=== PATIENT | male | born 1965 | race Caucasian/White ===

== ENCOUNTER 2020-10-04 14:56 | Emergency (ER) | payer OTHER ==
[2020-10-04 15:04] VITALS: TEMP 97.5
--- NOTE | 2020-10-04 15:52 | ED ---
General Adult HPI - General Chief complaint: Nausea/Vomiting/Diarrhea Stated complaint: Diarrhea,Headache Time Seen by Provider: 10/04/20 15:46 Source: patient Limitations: physical limitation - History of Present Illness Initial comments: Patient presents to the ED for evaluation. Patient states that he lives with his caregiver, and he states that his caregiver wanted him to be evaluated for possible Covid infection. Patient states that his only symptom is that he had one loose bowel movement, and he denies having any other symptoms or complaints. Patient states that he recently suffered from a stroke, and he states that he has right hemiparesis. Patient denies having any pain, fever or chills, headache, chest pain, dyspnea, cough or cold symptoms, palpitations, dizziness, abdominal pain, nausea or vomiting, bloody or melanotic stool, dysuria or urinary symptoms, or any other symptoms or complaints. - Related Data Home Medications Medication Instructions Recorded Confirmed Amiodarone [Cordarone] 200 mg PO BID 10/04/20 10/04/20 Aspirin EC [Ecotrin Low Dose] 81 mg PO DAILY 10/04/20 10/04/20 Atorvastatin [Lipitor] 80 mg PO HS 10/04/20 10/04/20 Loratadine 10 mg PO DAILY 10/04/20 10/04/20 Metoprolol Tartrate [Lopressor] 25 mg PO BID 10/04/20 10/04/20 Pantoprazole Sodium 40 mg PO DAILY 10/04/20 10/04/20 QUEtiapine [SEROquel] 50 mg PO HS 10/04/20 10/04/20 Thiamine HCl [Vitamin B-1] 100 mg PO DAILY 10/04/20 10/04/20 Warfarin Sodium 5 mg PO HS 10/04/20 10/04/20 lisinopriL [Zestril] 2.5 mg PO DAILY 10/04/20 10/04/20 Allergies Allergy/AdvReac Type Severity Reaction Status Date / Time No Known Allergies Allergy Verified 10/04/20 17:11 Review of Systems ROS Statement: Those systems with pertinent positive or pertinent negative responses have been documented in the HPI. ROS Other: All systems not noted in ROS Statement are negative. Past Medical History Past Medical History: Heart Failure, Hypertension History of Any Multi-Drug Resistant Organisms: None Reported Additional Past Surgical History / Comment(s): Cardiac stent Past Psychological History: No Psychological Hx Reported Smoking Status: Current some day smoker Past Alcohol Use History: None Reported Past Drug Use History: Marijuana General Exam Limitations: physical limitation General appearance: alert, in no apparent distress Head exam: Present: atraumatic, normocephalic Eye exam: Present: normal appearance, EOMI ENT exam: Present: mucous membranes moist Neck exam: Present: other (Trachea is in midline) Respiratory exam: Present: normal lung sounds bilaterally. Absent: respiratory distress, wheezes, rales, rhonchi, stridor Cardiovascular Exam: Present: regular rate, normal rhythm, normal heart sounds, other (Normal radial pulses bilaterally) GI/Abdominal exam: Present: soft. Absent: distended, tenderness, guarding Extremities exam: Absent: tenderness, pedal edema Neurological exam: Present: alert, oriented X3, other (Right hemiparesis, stuttered speech) Psychiatric exam: Present: normal affect, normal mood Skin exam: Present: warm, dry, intact, normal color Course Vital Signs 10/04/20 10/04/20 10/04/20 15:01 16:04 18:00 Temperature 97.5 F L Pulse Rate 69 64 Respiratory 22 18 18 Rate Blood Pressure 126/77 O2 Sat by Pulse 92 L Oximetry 10/04/20 19:00 Temperature Pulse Rate 62 Respiratory 18 Rate Blood Pressure 102/66 O2 Sat by Pulse 96 Oximetry - Reevaluation(s) Reevaluation #1: 10/04/20 17:34 Patient is aware of his test results and positive Covid test. Patient meets the inclusion criteria for monoclonal antibody infusion. I have recommended it to him, and he agrees with starting the infusion in the ED at this time. 10/04/20 19:22 Patient denies development of any new symptoms while in the ED. Patient remains alert and breathing comfortably with a normal room air oxygen saturation. Patient states that he feels fine after receiving his monoclonal antibody infusion in the ED. Patient was counseled about Covid infection and diarrhea. Patient was clearly explained return and follow-up instructions, and he was instructed to have a low threshold for return to the ED should his symptoms worsen. Patient was also instructed to follow up closely with his primary care provider. Patient feels comfortable with this plan. Medical Decision Making - Medical Decision Making I suspect that the patient's symptoms and study findings are likely secondary to Covid infection. Patient's chest x-ray shows mild right posterior infiltrate, but patient denies feeling dyspneic, and he has a normal room air oxygen saturation. Patient was treated with a monoclonal antibody infusion in the ED. I do not feel that the patient meets criteria for hospital admission at this time. Patient feels comfortable going home at this time. Patient was instructed to return to the ED should he develop new or worsening symptoms. Patient was also instructed to follow up closely with his primary care provider. Patient feels comfortable with this plan. - Lab Data Result diagrams: 10/04/20 16:24 10/04/20 16:24 Lab Results 10/04/20 10/04/20 10/04/20 Range/Units 16:24 16:24 16:24 WBC 8.8 (3.8-10.6) k/uL RBC 4.84 (4.30-5.90) m/uL Hgb 14.3 (13.0-17.5) gm/dL Hct 40.8 (39.0-53.0) % MCV 84.3 (80.0-100.0) fL MCH 29.4 (25.0-35.0) pg MCHC 34.9 (31.0-37.0) g/dL RDW 14.1 (11.5-15.5) % Plt Count 201 (150-450) k/uL MPV 7.2 Neutrophils % 83 % Lymphocytes % 9 % Monocytes % 6 % Eosinophils % 1 % Basophils % 1 % Neutrophils # 7.3 (1.3-7.7) k/uL Lymphocytes # 0.8 L (1.0-4.8) k/uL Monocytes # 0.5 (0-1.0) k/uL Eosinophils # 0.1 (0-0.7) k/uL Basophils # 0.0 (0-0.2) k/uL Sodium 129 L (137-145) mmol/L Potassium 3.6 (3.5-5.1) mmol/L Chloride 101 (98-107) mmol/L Carbon Dioxide 22 (22-30) mmol/L Anion Gap 6 mmol/L BUN 19 (9-20) mg/dL Creatinine 0.69 (0.66-1.25) mg/dL Est GFR (CKD-EPI)AfAm >90 (>60 ml/min/1.73 sqM) Est GFR (CKD-EPI)NonAf >90 (>60 ml/min/1.73 sqM) Glucose 100 H (74-99) mg/dL Calcium 8.2 L (8.4-10.2) mg/dL Total Bilirubin 0.5 (0.2-1.3) mg/dL AST 39 (17-59) U/L ALT 10 (4-49) U/L Alkaline Phosphatase 49 (38-126) U/L Total Protein 6.4 (6.3-8.2) g/dL Albumin 3.3 L (3.5-5.0) g/dL Lipase 71 (23-300) U/L Coronavirus (PCR) Detected A (Not Detectd) - Radiology Data Radiology results: report reviewed (Chest x-ray: Right side posterior pleural thickening and infiltrate, no heart failure) Disposition Clinical Impression: Diarrhea, COVID-19 Disposition: HOME SELF-CARE Condition: Stable Instructions (If sedation given, give patient instructions): Coronavirus Disease 2019 (COVID-19), Acute Diarrhea (ED) Additional Instructions: Return to the ER immediately should you develop shortness of breath/difficulty breathing, chest pain, a high fever, feeling dizzy or faint, or new or worsening symptoms. Follow up closely with your primary care provider. Is patient prescribed a controlled substance at d/c from ED?: No Referrals: Rosmery Petit DO [Primary Care Provider] - 1-2 days Time of Disposition: 19:25
[2020-10-04 16:24] VITALS: RESP 18
[2020-10-04 16:32] LABS: Basophils % (A) 1 %; Eosinophils # (A) 0.1 k/uL (0-0.7); Eosinophils % (A) 1 %; HCT 40.8 % (39.0-53.0); HGB 14.3 gm/dL (13.0-17.5); Lymphocytes # (A) 0.8 k/uL (1.0-4.8); Lymphocytes % (A) 9 %; MCH 29.4 pg (25.0-35.0); MCHC 34.9 g/dL (31.0-37.0); MCV 84.3 fL (80.0-100.0); Mean Platelet Volume 7.2; Monocytes # (A) 0.5 k/uL (0-1.0); Monocytes % (A) 6 %; Neutrophils # (A) 7.3 k/uL (1.3-7.7); Neutrophils % (A) 83 %; Platelet Count 201 k/uL (150-450); RBC 4.84 m/uL (4.30-5.90); RDW 14.1 % (11.5-15.5); WBC 8.8 k/uL (3.8-10.6)
[2020-10-04 16:41] LABS: ALT 10 U/L (4-49); AST 39 U/L (17-59); African American GFR (CKD) >90 (>60 ml/min/1.73 sqM); Albumin 3.3 g/dL (3.5-5.0); Alkaline Phosphatase 49 U/L (38-126); Anion Gap 6 mmol/L; Blood Urea Nitrogen 19 mg/dL (9-20); Calcium 8.2 mg/dL (8.4-10.2); Carbon Dioxide 22 mmol/L (22-30); Chloride 101 mmol/L (98-107); Glucose 100 mg/dL (74-99); Lipase 71 U/L (23-300); Non-African American GFR(CKD) >90 (>60 ml/min/1.73 sqM); Potassium 3.6 mmol/L (3.5-5.1); Sodium 129 mmol/L (137-145); Total Bilirubin 0.5 mg/dL (0.2-1.3); Total Protein 6.4 g/dL (6.3-8.2)
--- NOTE | 2020-10-04 16:52 | XR ---
EXAMINATION TYPE: XR chest 2V DATE OF EXAM: 10/04/2020 COMPARISON: NONE HISTORY: Nausea and vomiting TECHNIQUE: 2 views FINDINGS: Heart is enlarged. There is increased density over the right hemithorax consistent with inf iltrate and pleural thickening posteriorly. The left lung is clear. There is no heart failure. IMPRESSION: Right side posterior pleural thickening and infiltrate. No heart failure.
[2020-10-04] MEDS ORDERED: BAMLANIVIMAB (EUA) 700 MG, ETESEVIMAB (EUA) 1,400 MG in SODIUM CHLORIDE 0.9% 50 ML IVPB ONE (18:00)
[2020-10-04 19:10] VITALS: BP 102/66; PULSE 62
== END 2020-10-04 19:40 | disposition home or self-care (01) ==
LOC: EC 14:56
DX: U07.1 COVID-19 (principal); I11.0 Hypertensive heart disease with heart failure; I50.9 Heart failure, unspecified; F17.200 Nicotine dependence, unspecified, uncomplicated; Z86.73 Personal history of transient ischemic attack (TIA), and cerebral infarction without residual deficits; Z79.01 Long term (current) use of anticoagulants; Z79.82 Long term (current) use of aspirin; Z95.5 Presence of coronary angioplasty implant and graft
CPT/HCPCS: 36415; 80053; 83690; 85025; 87635; 71046; 99284; 96365; Q0245

== ENCOUNTER → 2020-12-26 | Outpatient (CLI) | payer OTHER ==
[2020-12-27 00:07] LABS: INR 1.63 (0.90-1.11); Prothrombin Time 17.2 sec (9.9-11.9)
[2020-12-27 00:57] LABS: African American GFR (CKD) 115.7 (60.0-200.0); Albumin/Globulin Ratio 1.54 (1.60-3.17); Anion Gap 8.6 mmol/L (4.00-12.00); BUN/Creat Ratio 18.75 Ratio (12.00-20.00); Calcium 8.9 mg/dL (8.7-10.3); Carbon Dioxide 24.4 mmol/L (21.6-31.8); Globulin 2.6 g/dL (1.6-3.3); Non-African American GFR(CKD) 99.9 (60.0-200.0); Potassium 4.4 mmol/L (3.5-5.5); Total Bilirubin 0.4 mg/dL (0.2-1.2); Total Protein 6.6 g/dL (6.2-8.2)
[2020-12-27 01:04] LABS: PSA Annual Screen 0.6 ng/mL (0.0-4.0)
== END | disposition home or self-care (01) ==
LOC: LABWHC1 13:55
PROVIDERS: ATTEND Internal Medicine
DX: Z12.5 Encounter for screening for malignant neoplasm of prostate (principal); N40.0 Benign prostatic hyperplasia without lower urinary tract symptoms; I10 Essential (primary) hypertension
CPT/HCPCS: 80053; 85610; 36415; G0103

== ENCOUNTER 2022-10-18 08:10 | Inpatient (IN) | payer OTHER ==
[2022-10-18] MEDS ORDERED: IPRATROPIUM-ALBUTEROL 3 ML NEB INHALATION STA (08:25)
[2022-10-18] MEDS ORDERED: DILTIAZEM DRIP BOLUS FROM BAG 1 MG SOLN IV ONE (08:31)
[2022-10-18] MEDS ORDERED: ASPIRIN 81 MG PO STA (08:31)
[2022-10-18] MEDS ORDERED: ACETAMINOPHEN TAB 325 MG TAB PO STA (08:31)
[2022-10-18] MEDS ORDERED: HEPARIN SODIUM 1,000 UN/ML (10ML VL) IV ONE (08:32)
[2022-10-18] MEDS ORDERED: DILTIAZEM 125 MG in SODIUM CHLORIDE 0.9% 100 ML IV SCH (08:45)
[2022-10-18 08:46] LABS: Basophils % (A) 0 %; Eosinophils # (A) 0.2 k/uL (0-0.7); Eosinophils % (A) 2 %; HCT 44.1 % (39.0-53.0); HGB 14.6 gm/dL (13.0-17.5); Lymphocytes # (A) 1.9 k/uL (1.0-4.8); Lymphocytes % (A) 16 %; MCH 29.5 pg (25.0-35.0); MCHC 33.2 g/dL (31.0-37.0); MCV 88.9 fL (80.0-100.0); Mean Platelet Volume 7.6; Monocytes # (A) 0.5 k/uL (0-1.0); Monocytes % (A) 5 %; Neutrophils # (A) 8.6 k/uL (1.3-7.7); Neutrophils % (A) 75 %; Platelet Count 360 k/uL (150-450); RBC 4.96 m/uL (4.30-5.90); RDW 14.3 % (11.5-15.5); WBC 11.4 k/uL (3.8-10.6)
--- NOTE | 2022-10-18 08:54 | ED ---
General Adult HPI - General Chief complaint: Shortness of Breath Stated complaint: sob Time Seen by Provider: 10/18/22 08:19 Source: patient, RN notes reviewed Mode of arrival: ambulatory Limitations: no limitations - History of Present Illness Initial comments: 57-year-old male presents emergency Department chief complaint of increasing shortness of breath. Patient states that over the last 1 week he noticed that he is having shortness of breath at rest and worse with exertion. Patient does have a history of atrial fibrillation, prior cardiac disease including one stent and CVA. Patient states she supposed be on multiple medications has not been taking any of his medication. Patient states he did have increasing cough, congestion, leg swelling. Patient states he used to be on Coumadin after his prior CVA. Patient denies any history of PE or DVT. Patient is a well chest tightness. - Related Data Home Medications Medication Instructions Recorded Confirmed No Known Home Medications 10/18/22 10/18/22 Allergies Allergy/AdvReac Type Severity Reaction Status Date / Time No Known Allergies Allergy Verified 10/18/22 08:55 Review of Systems ROS Statement: Those systems with pertinent positive or pertinent negative responses have been documented in the HPI. ROS Other: All systems not noted in ROS Statement are negative. Past Medical History Past Medical History: Chest Pain / Angina, Heart Failure, CVA/TIA, Hypertension History of Any Multi-Drug Resistant Organisms: None Reported Additional Past Surgical History / Comment(s): Cardiac stent Past Psychological History: No Psychological Hx Reported Smoking Status: Current every day smoker Past Alcohol Use History: None Reported Past Drug Use History: Marijuana General Exam Limitations: no limitations General appearance: alert, in distress Head exam: Present: atraumatic, normocephalic, normal inspection Eye exam: Present: normal appearance, PERRL, EOMI. Absent: scleral icterus, conjunctival injection, periorbital swelling ENT exam: Present: normal exam, normal oropharynx, mucous membranes moist Neck exam: Present: normal inspection, full ROM. Absent: tenderness, meningismus, lymphadenopathy Respiratory exam: Present: respiratory distress, wheezes. Absent: normal lung sounds bilaterally, rales, rhonchi, stridor Cardiovascular Exam: Present: tachycardia, irregular rhythm, normal heart sounds. Absent: normal rhythm, systolic murmur, diastolic murmur, rubs, gallop, clicks GI/Abdominal exam: Present: soft, normal bowel sounds. Absent: distended, tenderness, guarding, rebound, rigid Extremities exam: Present: pedal edema (Right greater than left leg swelling noted) Psychiatric exam: Present: normal affect, normal mood Course Vital Signs 10/18/22 10/18/22 10/18/22 08:13 09:00 09:14 Temperature 98.9 F Pulse Rate 152 H 154 H 130 H Respiratory 26 H Rate Blood Pressure 124/90 O2 Sat by Pulse 95 Oximetry EKG Findings - EKG Comments: EKG Findings:: EKG performed at 18:26 atrial flutter RVR, rate 154 QRS 106 QT/QTC 295/382 - EKG Results: EKG: interpreted by ADELAIDA Medical Decision Making - Medical Decision Making Was pt. sent in by a medical professional or institution (Dr. PA, CONSTRUCTION JOB COST ESTIMATOR, urgent care, hospital, or [facility]...) When possible be specific @ -[No] Did you speak to anyone other than the patient for history (EMS, parent, family, police, friend...)? What history was obtained from this source @ -[No] Did you review nursing and triage notes (agree or disagree)? Why? @ -[I reviewed and agree with nursing and triage notes] Were old charts reviewed (outside hosp., previous admission, EMS record, old EKG, old radiological studies, urgent care reports/EKG's, [facility] records)? Report findings @ -[No old charts were reviewed] Differential Diagnosis (chest pain, altered mental status, abdominal pain women, abdominal pain men, vaginal bleeding, weakness, fever, dyspnea, syncope, headache, dizziness, GI bleed, back pain, seizure, CVA, palpatations, mental health, musculoskeletal)? @ -[nDifferential Dyspnea: Coronary syndrome, arrhythmia, tamponade, asthma, COPD, pulmonary embolism, pneumonia, pneumothorax, pulmonary effusion, anaphylaxis, diabetic ketoacidosis, flailed chest, pulmonary contusion, diaphragmatic rupture, anemia, neuromuscular, this is not meant to be an all-inclusive list. able] EKG interpreted by me (3pts min.). @ -[As above] X-rays interpreted by me (1pt min.). @ -[Chest x-ray shows pulmonary edema] CT interpreted by me (1pt min.). @ -[CTA of the chest shows no evidence of PE, pulmonary edema] U/S interpreted by me (1pt. min.). @ -[None done] What testing was considered but not performed or refused? (CT, X-rays, U/S, labs)? Why? @ -[Echocardiogram will be completed inpatient] What meds were considered but not given or refused? Why? @ -[None] Did you discuss the management of the patient with other professionals (professionals i.e. DrRochelle, PA, CONSTRUCTION JOB COST ESTIMATOR, lab, RT, psych nurse, transition social worker, signal mechanic, teacher, attendance officer, continuous pillowcase cutter)? Give summary @ -[Discussed the case with Dr. Alonso cardiology who came and evaluated the patient regarding patient's troponin, history of coronary disease and recurrent atrial flutter with RVR. So discussed the case with [facility] for admission with further treatment and management of his underlying cardiac issues] Was smoking cessation discussed for >3mins.? @ -[I discussed smoking cessation for greater than 3 minutes. The risk of smoking were discussed with the patient including but not limited to risks of cancer, stroke, coronary artery disease and COPD. Also discussed with patient were multiple methods of quitting smoking. Lastly we discussed the financial cost of smoking.] Was critical care preformed (if so, how long)? @ -[35 mins] Were there social determinants of health that impacted care today? How? (Homelessness, low income, unemployed, alcoholism, drug addiction, transportation, low edu. Level, literacy, decrease access to med. care, usp, rehab)? @ -[No] Was there de-escalation of care discussed even if they declined (Discuss DNR or withdrawal of care, Hospice)? DNR status @ -[No] What co-morbidities impacted this encounter? (DM, HTN, Smoking, COPD, CAD, Cancer, CVA, ARF, Chemo, Hep., AIDS, mental health diagnosis, sleep apnea, morbid obesity)? @ -[CAD, CVA] Was patient admitted / discharged? Hospital course, mention meds given and route, prescriptions, significant lab abnormalities, going to OR and other pertinent info. @ -[Admitted patient is found to be in atrial flutter RVR patient was initially started on Cardizem, heparin. Patient is significantly complaint to give make chest x-ray shows pulmonary edema patient was given Lasix patient swelling was elevated at 3.195 did contact cardiology came and evaluated the patient. Patient will have echocardiogram, further monitoring patient will be kept on heparin] Undiagnosed new problem with uncertain prognosis? @ -[No] Drug Therapy requiring intensive monitoring for toxicity (Heparin, Nitro, Insulin, Cardizem)? @ -[Heparin, Cardizem] Were any procedures done? @ -[No] Diagnosis/symptom? @ -[NSTEMI] Acute, or Chronic, or Acute on Chronic? @ cute] Uncomplicated (without systemic symptoms) or Complicated (systemic symptoms)? @ -complicated Side effects of treatment? @ -[No] Exacerbation, Progression, or Severe Exacerbation? @ -[No] Poses a threat to life or bodily function? How? (Chest pain, USA, DC, pneumonia, PE, COPD, DKA, ARF, appy, cholecystitis, CVA, Diverticulitis, Homicidal, Suicidal, threat to staff... and all critical care pts) @ -[Yes patient has NSTEMi could lead to cardiac arrest - Lab Data Result diagrams: 10/18/22 08:35 10/18/22 08:35 Lab Results 10/18/22 10/18/22 10/18/22 Range/Units 08:35 08:35 08:35 WBC 11.4 H (3.8-10.6) k/uL RBC 4.96 (4.30-5.90) m/uL Hgb 14.6 (13.0-17.5) gm/dL Hct 44.1 (39.0-53.0) % MCV 88.9 (80.0-100.0) fL MCH 29.5 (25.0-35.0) pg MCHC 33.2 (31.0-37.0) g/dL RDW 14.3 (11.5-15.5) % Plt Count 360 (150-450) k/uL MPV 7.6 Neutrophils % 75 % Lymphocytes % 16 % Monocytes % 5 % Eosinophils % 2 % Basophils % 0 % Neutrophils # 8.6 H (1.3-7.7) k/uL Lymphocytes # 1.9 (1.0-4.8) k/uL Monocytes # 0.5 (0-1.0) k/uL Eosinophils # 0.2 (0-0.7) k/uL Basophils # 0.0 (0-0.2) k/uL PT 12.5 H (9.0-12.0) sec INR 1.2 H (<1.2) APTT 24.3 (22.0-30.0) sec D-Dimer 1.22 H (<0.60) mg/L FEU Sodium 139 (137-145) mmol/L Potassium 4.9 (3.5-5.1) mmol/L Chloride 109 H (98-107) mmol/L Carbon Dioxide 20 L (22-30) mmol/L Anion Gap 10 mmol/L BUN 23 H (9-20) mg/dL Creatinine 0.96 (0.66-1.25) mg/dL Est GFR (CKD-EPI)AfAm >90 (>60 ml/min/1.73 sqM) Est GFR (CKD-EPI)NonAf 87 (>60 ml/min/1.73 sqM) Glucose 128 H (74-99) mg/dL Plasma Lactic Acid Nik (0.7-2.0) mmol/L Calcium 9.2 (8.4-10.2) mg/dL Magnesium 2.0 (1.6-2.3) mg/dL Total Bilirubin 2.0 H (0.2-1.3) mg/dL AST 44 (17-59) U/L ALT 20 (4-49) U/L Alkaline Phosphatase 82 (38-126) U/L Troponin I (0.000-0.034) ng/mL NT-Pro-B Natriuret Pep pg/mL Total Protein 7.7 (6.3-8.2) g/dL Albumin 4.1 (3.5-5.0) g/dL Influenza Type A (PCR) (Not Detectd) Influenza Type B (PCR) (Not Detectd) RSV (PCR) (Not Detectd) SARS-CoV-2 (PCR) (Not Detectd) 10/18/22 10/18/22 10/18/22 Range/Units 08:35 08:35 08:35 WBC (3.8-10.6) k/uL RBC (4.30-5.90) m/uL Hgb (13.0-17.5) gm/dL Hct (39.0-53.0) % MCV (80.0-100.0) fL MCH (25.0-35.0) pg MCHC (31.0-37.0) g/dL RDW (11.5-15.5) % Plt Count (150-450) k/uL MPV Neutrophils % % Lymphocytes % % Monocytes % % Eosinophils % % Basophils % % Neutrophils # (1.3-7.7) k/uL Lymphocytes # (1.0-4.8) k/uL Monocytes # (0-1.0) k/uL Eosinophils # (0-0.7) k/uL Basophils # (0-0.2) k/uL PT (9.0-12.0) sec INR (<1.2) APTT (22.0-30.0) sec D-Dimer (<0.60) mg/L FEU Sodium (137-145) mmol/L Potassium (3.5-5.1) mmol/L Chloride (98-107) mmol/L Carbon Dioxide (22-30) mmol/L Anion Gap mmol/L BUN (9-20) mg/dL Creatinine (0.66-1.25) mg/dL Est GFR (CKD-EPI)AfAm (>60 ml/min/1.73 sqM) Est GFR (CKD-EPI)NonAf (>60 ml/min/1.73 sqM) Glucose (74-99) mg/dL Plasma Lactic Acid Nik 2.4 H* (0.7-2.0) mmol/L Calcium (8.4-10.2) mg/dL Magnesium (1.6-2.3) mg/dL Total Bilirubin (0.2-1.3) mg/dL AST (17-59) U/L ALT (4-49) U/L Alkaline Phosphatase (38-126) U/L Troponin I 3.190 H* (0.000-0.034) ng/mL NT-Pro-B Natriuret Pep 61850 pg/mL Total Protein (6.3-8.2) g/dL Albumin (3.5-5.0) g/dL Influenza Type A (PCR) (Not Detectd) Influenza Type B (PCR) (Not Detectd) RSV (PCR) (Not Detectd) SARS-CoV-2 (PCR) (Not Detectd) 10/18/22 Range/Units 08:35 WBC (3.8-10.6) k/uL RBC (4.30-5.90) m/uL Hgb (13.0-17.5) gm/dL Hct (39.0-53.0) % MCV (80.0-100.0) fL MCH (25.0-35.0) pg MCHC (31.0-37.0) g/dL RDW (11.5-15.5) % Plt Count (150-450) k/uL MPV Neutrophils % % Lymphocytes % % Monocytes % % Eosinophils % % Basophils % % Neutrophils # (1.3-7.7) k/uL Lymphocytes # (1.0-4.8) k/uL Monocytes # (0-1.0) k/uL Eosinophils # (0-0.7) k/uL Basophils # (0-0.2) k/uL PT (9.0-12.0) sec INR (<1.2) APTT (22.0-30.0) sec D-Dimer (<0.60) mg/L FEU Sodium (137-145) mmol/L Potassium (3.5-5.1) mmol/L Chloride (98-107) mmol/L Carbon Dioxide (22-30) mmol/L Anion Gap mmol/L BUN (9-20) mg/dL Creatinine (0.66-1.25) mg/dL Est GFR (CKD-EPI)AfAm (>60 ml/min/1.73 sqM) Est GFR (CKD-EPI)NonAf (>60 ml/min/1.73 sqM) Glucose (74-99) mg/dL Plasma Lactic Acid Nik (0.7-2.0) mmol/L Calcium (8.4-10.2) mg/dL Magnesium (1.6-2.3) mg/dL Total Bilirubin (0.2-1.3) mg/dL AST (17-59) U/L ALT (4-49) U/L Alkaline Phosphatase (38-126) U/L Troponin I (0.000-0.034) ng/mL NT-Pro-B Natriuret Pep pg/mL Total Protein (6.3-8.2) g/dL Albumin (3.5-5.0) g/dL Influenza Type A (PCR) Not Detected (Not Detectd) Influenza Type B (PCR) Not Detected (Not Detectd) RSV (PCR) Not Detected (Not Detectd) SARS-CoV-2 (PCR) Not Detected (Not Detectd) Critical Care Time Critical Care Time: Yes Total Critical Care Time: 35 Disposition Clinical Impression: NSTEMI (non-ST elevated myocardial infarction), Atrial flutter with rapid ventricular response, CHF (congestive heart failure) Disposition: ADMITTED IP TO THIS [facility] Condition: Poor Referrals: Юлия Shore MD [Primary Care Provider] - 1-2 days Time of Disposition: 10:34
[2022-10-18 08:56] LABS: ALT 20 U/L (4-49); AST 44 U/L (17-59); African American GFR (CKD) >90 (>60 ml/min/1.73 sqM); Albumin 4.1 g/dL (3.5-5.0); Alkaline Phosphatase 82 U/L (38-126); Anion Gap 10 mmol/L; Blood Urea Nitrogen 23 mg/dL (9-20); Calcium 9.2 mg/dL (8.4-10.2); Carbon Dioxide 20 mmol/L (22-30); Chloride 109 mmol/L (98-107); Glucose 128 mg/dL (74-99); Non-African American GFR(CKD) 87 (>60 ml/min/1.73 sqM); Potassium 4.9 mmol/L (3.5-5.1); Sodium 139 mmol/L (137-145); Total Protein 7.7 g/dL (6.3-8.2)
[2022-10-18] MEDS: HEPARIN SOD,PORK IN 0.45% NACL 25,000 UNIT in 0.45% NACL 1 250ML.BAG IV SCH (09:04)
[2022-10-18 09:17] LABS: INR 1.2 (<1.2); Partial Thromboplastin Time 24.3 sec (22.0-30.0); Prothrombin Time 12.5 sec (9.0-12.0)
[2022-10-18] MEDS ORDERED: LORazepam 2 MG/ML INJ IV STA (09:19)
--- NOTE | 2022-10-18 10:13 | CT ---
EXAMINATION TYPE: CT chest angio for PE CT DLP: 672.2 mGycm, Automated exposure control for dose reduction was used. DATE OF EXAM: 10/18/2022 9:57 AM COMPARISON: Chest radiograph same day. CLINICAL INDICATION:Male, 57 years old with history of sob; SOB TECHNIQUE/CONTRAST: CTA scan of the thorax is performed with IV Contrast, patient injected with 100 mL of Isovue 370, pul monary embolism protocol. MIP images are created and reviewed [facility] FINDINGS: Pulmonary Artery: There is no evidence for a filling defect within the pulmonary vasculature to sugge st acute pulmonary embolism. The pulmonary artery is of normal size. Lungs/Pleura: There is trace bilateral pleural effusions. There is thickening of interlobular septa. No evidence of focal consolidation, pleural effusion or pneumothorax. Airway: Large airways are patent. Heart: The heart is enlarged for size. Mild coronary artery calcifications. Vasculature: No evidence of aortic aneurysm. Mediastinum: No gross evidence of adenopathy. Musculoskeletal: Mild degenerative disc disease changes are present throughout the thoracolumbar spin e. Soft Tissues: Unremarkable. Lower neck: No significant findings. Upper Abdomen: No significant findings. IMPRESSION: 1. No evidence of pulmonary embolism. 2. Cardiomegaly with trace bilateral pleural effusions and pulmonary vascular congestion. Correlate w ith serum BNP for congestive heart failure.
[2022-10-18] MEDS ORDERED: ASPIRIN 81 MG PO SCH (10:30)
[2022-10-18] MEDS ORDERED: SPIRONOLACTONE 25 MG TAB PO SCH (10:30)
[2022-10-18] MEDS ORDERED: NITROGLYCERIN SL TABS 0.4 MG TAB SUBLINGUAL PRN (10:57)
[2022-10-18] MEDS: METOPROLOL TARTRATE 25 MG TAB PO SCH ×2 (10:59→20:16)
[2022-10-18] MEDS: FUROSEMIDE 10 MG/ML 4 ML VIAL IV SCH ×2 (11:02→20:16)
[2022-10-18] MEDS: ASPIRIN 81 MG PO SCH (12:23)
--- NOTE | 2022-10-18 12:28 | P.CRDCN ---
History of Present Illness Consult date: 10/18/22 History of present illness: HISTORY OF PRESENT ILLNESS: This is a 57 year old male with a past medical history significant for CVA in 2020, coronary artery disease with previous stenting approximately 20 years ago, congestive heart failure, and nicotine dependence. Patient does not follow with a facility service associate. We have been asked to see the patient in consultation for NSTEMI. Patient examined at the bedside in the emergency room. The patient p resented to the hospital with a chief complaint of shortness of breath and lower extremity edema. The patient does have a history of congestive heart failure. However the patient states he stopped taking all of his medications approximately 2 months ago. He does have an appointment scheduled on an outpatient basis to establish care with Dr. Ellison. The patient denies having any chest pain or pressure. The patient was found to be in atrial fibrillation with RVR. He was started on IV heparin. The time of examination, the patient remains in atrial fibrillation with RVR. He has been placed on IV Cardizem. * Chest CTA: negative for pulmonary embolism. Cardiomegaly with trace bilateral pleural effusions and pulmonary vascular congestion. * Laboratory data: WBC 11.4. Hemoglobin 14.6. Platelet count 360. D-dimer 1.22. Sodium 139. Potassium 4.9. BUN 23. Creatinine 0.96. Lactic acid 2.4. Troponin 3.190. ProBNP 11,100. * Current home cardiac medications include none REVIEW OF SYSTEMS: At the time of my exam: CONSTITUTIONAL: Denies fever or chills. HEENT: Denies blurred vision, vision changes, or eye pain. Denies hemoptysis CARDIOVASCULAR: Denies chest pain. Denies orthopnea. Denies PND. Denies palpitations RESPIRATORY: Denies shortness of breath. GASTROINTESTINAL: Denies abdominal pain. Denies nausea or vomiting. HEMATOLOGIC: Denies bleeding disorders. GENITOURINARY: Denies any blood in urine. SKIN: Denies pruitis. Denies rash. PHYSICAL EXAM: VITAL SIGNS: Reviewed. GENERAL: Well-developed in no acute distress. HEENT: Head is normocephalic. Pupils are equal, round. Sclerae anicteric. Mucous membranes of the mouth are moist. Neck supple. No JVD or thyromegaly LUNGS: Respirations even and unlabored. Lungs diminished, left worse than right, with bibasilar crackles HEART: Tachycardic. Irregular rate and rhythm. S1 and S2 heard. ABDOMEN: Soft. Nondistended. Nontender. EXTREMITIES: Normal range of motion. No clubbing or cyanosis. Peripheral pulses intact. 1+ bilateral lower extremity edema NEUROLOGIC: Awake and alert. Oriented x 3. ASSESSMENT: Shortness of breath Non-STEMI Acute on chronic heart failure with unknown EF, echo pending Atrial fibrillation with RVR, duration unknown History of CVA with right-sided weakness, approximately 2 years ago Coronary artery disease with previous stenting, approximately 20 years ago Nicotine dependence Medication noncompliance, patient states he quit taking his medications 2 months ago PLAN: Obtain 2D echo to assess cardiac structure and function Trend troponins Begin aspirin, atorvastatin, metoprolol, Aldactone, and Nitropaste Continue IV Cardizem Continue IV heparin Begin IV lasix 40mg Q12 hours Daily weights, accurate I&O, and monitoring of kidney function Check TSH Obtain records from [facility] as patient was previously hospitalized there Smoking cessation recommended NPO at midnight Possible cardiac catheterization tomorrow if patients condition improves Further recommendations pending patient course Nurse practitioner note has been reviewed by physician. Signing provider agrees with the documented findings, assessment, and plan of care. Past Medical History Past Medical History: Chest Pain / Angina, Heart Failure, CVA/TIA, Hypertension History of Any Multi-Drug Resistant Organisms: None Reported Additional Past Surgical History / Comment(s): Cardiac stent Past Psychological History: No Psychological Hx Reported Smoking Status: Current every day smoker Past Alcohol Use History: None Reported Past Drug Use History: Marijuana Medications and Allergies Home Medications Medication Instructions Recorded Confirmed Type No Known Home Medications 10/18/22 10/18/22 History Allergies Allergy/AdvReac Type Severity Reaction Status Date / Time No Known Allergies Allergy Verified 10/18/22 08:55 Physical Exam Vitals: Vital Signs Temp Pulse Resp BP Pulse Ox 10/18/22 11:02 85 22 137/109 93 L 10/18/22 09:14 130 H 10/18/22 09:00 154 H 10/18/22 08:13 98.9 F 152 H 26 H 124/90 95 Intake and Output 10/17/22 10/18/22 10/18/22 22:59 06:59 14:59 Intake Total 10.25 Balance 10.25 Intake: Intake, IV Titration 10.25 Amount Diltiazem 125 mg In 10.25 Sodium Chloride 0.9% 100 ml @ 5 MG/HR 5 mls/hr IV .Q24H [facility] Rx#:[id number] Other: Weight 117.934 kg Results 10/18/22 08:35 10/18/22 08:35 Cardiac Enzymes 10/18/22 10/18/22 Range/Units 08:35 08:35 AST 44 (17-59) U/L Troponin I 3.190 H* (0.000-0.034) ng/mL Coagulation 10/18/22 Range/Units 08:35 PT 12.5 H (9.0-12.0) sec APTT 24.3 (22.0-30.0) sec CBC 10/18/22 Range/Units 08:35 WBC 11.4 H (3.8-10.6) k/uL RBC 4.96 (4.30-5.90) m/uL Hgb 14.6 (13.0-17.5) gm/dL Hct 44.1 (39.0-53.0) % Plt Count 360 (150-450) k/uL Comprehensive Metabolic Panel 10/18/22 Range/Units 08:35 Sodium 139 (137-145) mmol/L Potassium 4.9 (3.5-5.1) mmol/L Chloride 109 H (98-107) mmol/L Carbon Dioxide 20 L (22-30) mmol/L BUN 23 H (9-20) mg/dL Creatinine 0.96 (0.66-1.25) mg/dL Glucose 128 H (74-99) mg/dL Calcium 9.2 (8.4-10.2) mg/dL AST 44 (17-59) U/L ALT 20 (4-49) U/L Alkaline Phosphatase 82 (38-126) U/L Total Protein 7.7 (6.3-8.2) g/dL Albumin 4.1 (3.5-5.0) g/dL Current Medications Generic Name Dose Route Start Last Admin Trade Name Freq PRN Reason Stop Dose Admin Aspirin 325 mg 10/19/22 09:00 Aspirin 325 Mg Tab PO DAILY [facility] Atorvastatin Calcium 80 mg 10/18/22 21:00 Atorvastatin 80 Mg Tab PO HS [facility] Furosemide 40 mg 10/18/22 10:30 10/18/22 11:02 Furosemide 10 Mg/Ml 4 Ml Vial IV 40 mg Q12HR [facility] Administration Heparin Sodium (Porcine) 0 unit 10/18/22 08:32 Heparin Sodium 1,000 Un/Ml (10ml Vl) IV PER PROTOCOL PRN Low PTT Protocol Diltiazem HCl 125 mg/ Sodium 125 mls @ 5 mls/hr 10/18/22 08:45 10/18/22 10:58 Chloride IV 0 mg/hr .Q24H [facility] 0 mls/hr Infusion 5 MG/HR Heparin Sodium/Sodium Chloride 250 mls @ 10.001 mls/hr 10/18/22 08:45 10/18/22 09:04 25,000 unit/ Sodium Chloride IV 8.48 units/kg/hr .Q24H [facility] 10.001 mls/hr Administration Protocol 8.48 UNITS/KG/HR Metoprolol Tartrate 25 mg 10/18/22 10:30 10/18/22 10:59 Metoprolol Tartrate 25 Mg Tab PO Not Given BID [facility] Nitroglycerin 0.4 mg 10/18/22 10:57 Nitroglycerin Sl Tabs 0.4 Mg Tab SUBLINGUAL Q5M PRN Chest Pain Spironolactone 25 mg 10/18/22 10:30 10/18/22 11:02 Spironolactone 25 Mg Tab PO 25 mg DAILY [facility] Administration Intake and Output 10/17/22 10/18/22 10/18/22 22:59 06:59 14:59 Intake Total 10.25 Balance 10.25 Intake: Intake, IV Titration 10.25 Amount Diltiazem 125 mg In 10.25 Sodium Chloride 0.9% 100 ml @ 5 MG/HR 5 mls/hr IV .Q24H [facility] Rx#:[id number] Other: Weight 117.934 kg Patient Weight 10/19/22 06:59 Weight 117.934 kg 10/18/22 08:35 10/18/22 08:35
[2022-10-18 13:39] LABS: T4, Free (Free Thyroxine) 4.14 ng/dL (0.78-2.19)
--- NOTE | 2022-10-18 16:26 | P.HPIM ---
History of Present Illness 57-year-old male with a missed known history of coronary artery disease with stents in the past and failure came in with compensative shortness of breath and orthopnea paroxysmal nocturnal dyspnea elevated troponin and found to be in heart failure with bilateral pleural effusions and elevated proBNP of 11,000. Patient did have orthopnea and proximal lateral dyspnea increased of bilateral pedal edema. Patient has stopped taking his medications about 2 months ago including antiplatelet medications and diuretics and continues to smoke a pack of cigarettes per day patient does have elevated d-dimer because of which CT of the chest was opted which did not show any pulmonary embolism. Patient is also found to be in atrial fibrillation with rapid ventricular rate and was started on IV heparin. Patient is supposed to be on Coumadin as an outpatient. REVIEW OF SYSTEMS: CONSTITUTIONAL: No fever, no malaise, no fatigue. HEENT: No recent visual problems or hearing problems. Denied any sore throat. CARDIOVASCULAR: No chest pain,no palpitations, no syncope. PULMONARY: no hemoptysis. GASTROINTESTINAL: No diarrhea, no nausea, no vomiting, no abdominal pain. NEUROLOGICAL: No headaches, no weakness, no numbness. HEMATOLOGICAL: Denies any bleeding or petechiae. GENITOURINARY: Denies any burning micturition, frequency, or urgency. MUSCULOSKELETAL/RHEUMATOLOGICAL: Denies any joint pain, swelling, or any muscle pain. ENDOCRINE: Denies any polyuria or polydipsia. The rest of the 14-point review of systems is negative. PHYSICAL EXAMINATION: GENERAL: The patient is alert and oriented x3, not in any acute distress. Well developed, well nourished. HEENT: Pupils are round and equally reacting to light. EOMI. No scleral icterus. No conjunctival pallor. Normocephalic, atraumatic. No pharyngeal erythema. No thyromegaly. CARDIOVASCULAR: S1 and S2 present. No murmurs, rubs, or gallops. Elevated JVD PULMONARY: Bibasilar crackles ABDOMEN: Soft, nontender, nondistended, normoactive bowel sounds. No palpable organomegaly. MUSCULOSKELETAL: No joint swelling or deformity. EXTREMITIES: No cyanosis, clubbing, patient does have 2+ pitting pedal edema extending up to the knees NEUROLOGICAL: Gross neurological examination did not reveal any focal deficits. SKIN: No rashes. Assessment and plan -Congestive heart failure possibly chronic systolic dysfunction with acute exacerbation patient will be continued on IV Lasix monitor I's and O's. Echo cardiac exam will be obtained -Acute non-ST elevation microinfarction with elevated troponin of for around 2.6 patient is on IV heparin cardiology will evaluate the patient and decision regarding cardiac catheterization as per cardiology -Paroxysmal Atrial fibrillation with rapid and regular rate patient is on rate control medications ON Cardizem probably need to be switched to beta juan. -Noncompliance of medications extensive counseling was provided -Rule out pulmonary embolism -History of CVA with mild residual right-sided weakness, patient will be resumed on B -Extremely low TSH will obtain T4 -Nicotine cessation counseling was provided -Hyperlipidemia DVT prophylaxis: On IV heparin Past Medical History Past Medical History: Chest Pain / Angina, Heart Failure, CVA/TIA, Hypertension History of Any Multi-Drug Resistant Organisms: None Reported Additional Past Surgical History / Comment(s): Cardiac stent Past Psychological History: No Psychological Hx Reported Smoking Status: Current every day smoker Past Alcohol Use History: None Reported Past Drug Use History: Marijuana Medications and Allergies Home Medications Medication Instructions Recorded Confirmed Type No Known Home Medications 10/18/22 10/18/22 History Allergies Allergy/AdvReac Type Severity Reaction Status Date / Time No Known Allergies Allergy Verified 10/18/22 08:55 Physical Exam Vitals: Vital Signs Temp Pulse Resp BP Pulse Ox 10/18/22 15:11 97 20 115/94 99 10/18/22 13:12 98 22 111/89 93 L 10/18/22 11:45 94 18 115/89 95 10/18/22 11:02 85 22 137/109 93 L 10/18/22 09:14 130 H 10/18/22 09:00 154 H 10/18/22 08:13 98.9 F 152 H 26 H 124/90 95 Intake and Output 10/18/22 10/18/22 10/18/22 06:59 14:59 22:59 Intake Total 10.25 Balance 10.25 Intake: Intake, IV Titration 10.25 Amount Diltiazem 125 mg In 10.25 Sodium Chloride 0.9% 100 ml @ 5 MG/HR 5 mls/hr IV .Q24H [facility] Rx#:[id number] Other: Weight 117.934 kg Results CBC & Chem 7: 10/18/22 08:35 10/18/22 08:35 Labs: Abnormal Lab Results - Last 24 Hours (Table) 10/18/22 10/18/22 10/18/22 Range/Units 08:35 08:35 08:35 WBC 11.4 H (3.8-10.6) k/uL Neutrophils # 8.6 H (1.3-7.7) k/uL PT 12.5 H (9.0-12.0) sec INR 1.2 H (<1.2) D-Dimer 1.22 H (<0.60) mg/L FEU Chloride 109 H (98-107) mmol/L Carbon Dioxide 20 L (22-30) mmol/L BUN 23 H (9-20) mg/dL Glucose 128 H (74-99) mg/dL Plasma Lactic Acid Nik (0.7-2.0) mmol/L Total Bilirubin 2.0 H (0.2-1.3) mg/dL Troponin I (0.000-0.034) ng/mL TSH (0.465-4.680) mIU/L Free T4 (0.78-2.19) ng/dL 10/18/22 10/18/22 10/18/22 Range/Units 08:35 08:35 11:32 WBC (3.8-10.6) k/uL Neutrophils # (1.3-7.7) k/uL PT (9.0-12.0) sec INR (<1.2) D-Dimer (<0.60) mg/L FEU Chloride (98-107) mmol/L Carbon Dioxide (22-30) mmol/L BUN (9-20) mg/dL Glucose (74-99) mg/dL Plasma Lactic Acid Nik 2.4 H* (0.7-2.0) mmol/L Total Bilirubin (0.2-1.3) mg/dL Troponin I 3.190 H* (0.000-0.034) ng/mL TSH <0.015 L (0.465-4.680) mIU/L Free T4 4.14 H (0.78-2.19) ng/dL 10/18/22 10/18/22 Range/Units 11:32 11:32 WBC (3.8-10.6) k/uL Neutrophils # (1.3-7.7) k/uL PT (9.0-12.0) sec INR (<1.2) D-Dimer (<0.60) mg/L FEU Chloride (98-107) mmol/L Carbon Dioxide (22-30) mmol/L BUN (9-20) mg/dL Glucose (74-99) mg/dL Plasma Lactic Acid Nik 2.5 H* (0.7-2.0) mmol/L Total Bilirubin (0.2-1.3) mg/dL Troponin I 2.690 H* (0.000-0.034) ng/mL TSH (0.465-4.680) mIU/L Free T4 (0.78-2.19) ng/dL
[2022-10-18] MEDS: HEPARIN SODIUM 1,000 UN/ML (10ML VL) IV PRN (16:46)
[2022-10-18] MEDS: NITROGLYCERIN OINT 1 INCH/GM PACKET TOPICAL SCH (16:47)
--- NOTE | 2022-10-18 17:59 | CA ---
Transthoracic Echo Report Name: Kian Nguyen Age: 57 Gender: M : 1965 Exam Date: 10/18/2022 13:07 Exam Location: [facility] Ht (in): 70 Wt (lb): 260 Ordering Physician: Josee Victor Attending/Referring Phys: Security Incident Response Specialist Iván Dunaway, KRYSTIN Procedure CPT: Indications: LV function, NSTEMI, CHF Cardiac Hx: HTN, CAD; COPD; Severe SOB episode Technical Quality: Very technically difficult study Contrast 1: Lumason Total Dose (mL): 6 Contrast 2: Total Dose (mL): MEASUREMENTS (Male / Female) Normal Values 2D ECHO LV Diastolic Diameter PLAX 5.4 cm 4.2 - 5.9 / 3.9 - 5.3 cm LV Systolic Diameter PLAX 4.3 cm LV Fractional Shortening PLAX 20.5 % IVS Diastolic Thickness 1.0 cm 0.6 - 1.0 / 0.6 - 0.9 cm IVS Systolic Thickness 1.4 cm LVPW Diastolic Thickness 1.6 cm 0.6 - 1.0 / 0.6 - 0.9 cm LVPW Systolic Thickness 1.5 cm LV Relative Wall Thickness 0.5 RV Internal Dim ED PLAX 3.5 cm LVOT Diameter 2.6 cm LA Systolic Diameter LX 3.9 cm 3.0 - 4.0 / 2.7 - 3.8 cm MV Area Planimetry 19.7 cm??? LV Diastolic Volume MOD BP 149.5 cm??? 67 - 155 / 56 - 104 cm??? LV Systolic Volume MOD BP 97.5 cm??? 22 - 58 / 19 - 49 cm??? LV Ejection Fraction MOD BP 34.8 % >= 55 % LV Stroke Volume MOD BP 52.1 cm??? LV Diastolic Volume MOD 4C 106.4 cm??? LV Systolic Volume MOD 4C 59.3 cm??? LV Ejection Fraction MOD 4C 44.3 % LV Stroke Volume MOD 4C 47.1 cm??? LV Diastolic Length 4C 7.2 cm LV Systolic Length 4C 6.5 cm LV Diastolic Volume MOD 2C 190.8 cm??? LV Systolic Volume MOD 2C 143.3 cm??? LV Ejection Fraction MOD 2C 24.9 % LV Stroke Volume MOD 2C 47.4 cm??? LV Diastolic Length 2C 8.1 cm LV Systolic Length 2C 7.5 cm Ascending Aorta Diameter 1.9 cm M-MODE Aortic Root Diameter MM 2.5 cm LA Systolic Diameter MM 4.3 cm LA Ao Ratio MM 1.7 AV Cusp Separation MM 1.5 cm DOPPLER AV Peak Velocity 147.4 cm/s AV Peak Gradient 8.7 mmHg MR Peak Velocity 330.8 cm/s MR Peak Gradient 43.8 mmHg MV E' Velocity 4.5 cm/s TR Peak Velocity 410.2 cm/s TR Peak Gradient 67.3 mmHg Right Ventricular Systolic Press 82.3 mmHg PV Peak Velocity 102.3 cm/s PV Peak Gradient 4.2 mmHg FINDINGS Left Ventricle Left ventricular ejection fraction is estimated at 35-40 %. Hyperdynamic left ventricular systolic function. Dyskinetic septum. Reduced global left ventricular systolic function. Right Ventricle Right ventricle not well visualized. RVSP- 82 mm Hg. Right Atrium Right atrium not well visualized. Left Atrium Left atrium not well visualized. Mitral Valve Mitral valve not well visualized. Moderate mitral regurgitation. Aortic Valve Aortic valve not well visualized. Tricuspid Valve Tricuspid valve not well visualized. [id number] tricuspid regurgitation. Pulmonic Valve Pulmonic valve not well visualized. Pericardium Normal pericardium. Aorta Aortic root and proximal ascending aorta not well visualized. CONCLUSIONS Technically suboptimal study secondary to poor echo windows Moderate to severe LV systolic dysfunction with an ejection fraction of 35-40% Moderate tricuspid regurgitation Moderate mitral regurgitation Previewed by: Dr. Norberto Iniguez MD (Electronically Signed) Final Date: 18 October 2022 17:58
[2022-10-18] MEDS: ATORVASTATIN 80 MG TAB PO SCH (20:16)
[2022-10-18 20:51] LABS: Glucose,Whole Blood 119 mg/dL (70-110)
[2022-10-18] MEDS ORDERED: NOREPINEPHRIN 4 MG-0.9% NS PMX 4 MG/250 ML ML IV ONE (21:26)
[2022-10-18] MEDS ORDERED: propofoL 100 ML IV ONE (21:26)
--- NOTE | 2022-10-18 21:34 | XR ---
EXAMINATION TYPE: XR chest 1V portable DATE OF EXAM: 10/18/2022 COMPARISON: 10/18/2022 INDICATION: Respiratory distress TECHNIQUE: Single frontal view of the chest is obtained. FINDINGS: The heart size is enlarged. The pulmonary vasculature is prominent. Diffuse increased lung markings are present. IMPRESSION: 1. Conical correlation for congestive heart failure. Follow-up is recommended.
[2022-10-18] MEDS ORDERED: SUCCINYLCHOLINE CHLORIDE 200 MG/10 ML VIAL IV ONE (21:37)
[2022-10-18] MEDS ORDERED: ETOMIDATE 2 MG/ML 10 ML VIAL ONE (21:37)
[2022-10-18] MEDS ORDERED: ROCURONIUM 10 MG/ML (5 ML VIAL) IV ONE (21:37)
[2022-10-18] MEDS ORDERED: NALOXONE 0.4 MG/ML 1 ML VIAL IV PRN (21:56)
[2022-10-18 22:13] LABS: Chol/HDL Ratio 5.25 Ratio; LDL Cholesterol,Calculated 100.6 mg/dL (0.0-131.0); VLDL Calculation 19.16 mg/dL (5.00-40.00)
[2022-10-18 22:20] LABS: ABG Base Excess -10.8 mmol/L; ABG HCO3 18 mmol/L (21-25); ABG Oxygen Saturation 97.6 % (94-97); ABG PCO2 47 mmHg (35-45); ABG PO2 128 mmHg (83-108); ABG TCO2 19 mmol/L (19-24); Allen Test Performed? Yes
[2022-10-18 22:24] LABS: ABG PH 7.18 (7.35-7.45)
--- NOTE | 2022-10-18 22:30 | XR ---
EXAMINATION TYPE: XR chest 1V portable DATE OF EXAM: 10/18/2022 COMPARISON: 10/18/2022 INDICATION: Intubation difficulty breathing TECHNIQUE: Single frontal view of the chest is obtained. FINDINGS: The heart size is mildly prominent. The pulmonary vasculature is prominent. Diffuse increased lung markings are present bilaterally. This is slightly greater on the right. Findi ngs are worsening from earlier exam. Correlate for pulmonary edema. Endotracheal tube is in place with the tip 5.4 cm above the derik. Nasogastric tube transverses the field of view. IMPRESSION: 1. Clinical correlation recommended for congestive heart failure. 2. Endotracheal tube tip above the derik. Nasogastric tube transverses the field of view, the distal tip is not identified within the [id number].
[2022-10-18 23:10] LABS: Calcium 8.7 mg/dL (8.4-10.2)
[2022-10-18] MEDS ORDERED: DEXTROSE 5% IN WATER 100 ML with AMIODARONE 150 MG IV ONE (23:13)
[2022-10-18 23:16] LABS: Potassium 5.2 mmol/L (3.5-5.1)
[2022-10-18] MEDS ORDERED: AMIODARONE 360 MG in DEXTROSE 5% IN WATER 200 ML IV ONE ×2 (23:22)
[2022-10-19] MEDS: IPRATROPIUM-ALBUTEROL 3 ML NEB INHALATION SCH ×7 (00:14→23:39)
--- NOTE | 2022-10-19 00:50 | P.CNPUL ---
History of Present Illness Consult date: 10/18/22 Requesting physician: Christophe Suárez Reason for consult: other (ICU management) Chief complaint: Shortness of breath History of present illness: I am seeing this patient in new consultation today 10/19/2022 for ICU management. Patient was originally admitted with NSTEMI and developed acute dec ompensated heart failure while on the floor. Patient is a 57-year-old white male with past medical history of coronary artery disease post stent, congestive heart failure, current smoker, atrial fibrillation, CVA. Patient is currently intubated to the mechanical ventilator, and information was taken from the patient's chart and family. Apparently, the patient stopped taking his medications for the past 2 months. The patient has reportedly been experiencing shortness of breath with increased lower extremity swelling at home for approximately one week. This prompted the patient to come to the emergency room earlier today. Chest CTA on arrival showed no evidence of pulmonary embolism, with cardiomegaly, trace bilateral pleural effusions, and pulmonary vascular congestion. Patient's troponins were elevated at 3.91. The patient was diagnosed with NSTEMI, and started on a heparin infusion. The patient was admitted to the selective care unit. Patient was also in atrial fibrillation wi th rapid ventricular rate, and was started on a Cardizem infusion. Cardizem is currently paused due to some hypotension. While on the floor, patient started having some worsening respiratory distress, and eventually required intubation. Postintubation ABG shows a pO2 of 128, pCO2 47, pH is 7.18. Current mechanical ventilator settings are assist control, respiratory rate of 24, tidal volume 500 , FiO2 100%, PEEP of 5. Respiratory rate was increased to 28. Postintubation chest x-ray showed endotracheal tube approximately 5.4 cm above the derik. This was advanced approximately 1 cm. Nasogastric tube coursing below the diaphragm. There were also findings consistent with congestive heart failure seen earlier. Echocardiogram done today shows reduced ejection fraction of 35-40%, moderate tricuspid regurgitation, and moderate mitral regurgitation. Postintubation, patient did become hypotensive and was given one 500 ML normal saline bolus. Patient's blood pressure is currently normotensive without any vasopressor support. Heart rhythm is currently normal sinus at 87 bpm with frequent multifocal PVCs. Apparently, during intubation the patient did have a run of V. tach, however, I did not see this on clinical access. A left wrist arterial line was inserted by [employer]FACTUR[employer] REPRESENT[employer]. Propofol is infusing at 45 mcg/kg/m for sedation, heparin is currently paused due to temporary loss of IV access, and will be restarted. Most recent CBC shows a WBC count 11.4, hemoglobin 14.6, hematocrit 44.1, platelets 360,000. INR was subtherapeutic on arrival. Most recent BMP shows sodium 138, potassium 5.2, chloride 106, serum CO2 16, bun 27, creatinine 1.46, glucose 170. Patient's lactic acid level was elevated on arrival and is currently 5.1. TSH was undetectable and free T4 4.14. Troponins were initially trending down, but most recent troponin was elevated at 2.56. BNP was 11,100. He is receiving Lasix twice a day. Patient has Wang catheter inserted, and there is a moderate amount of concentrated urine in the bag. Patient is currently in the intensive care unit, and his condition is critical. Review of Systems Unable to obtain review of systems due to patient being intubated on mechanical ventilator Past Medical History Past Medical History: Coronary Artery Disease (CAD), Chest Pain / Angina, Heart Failure, CVA/TIA, Hypertension, Myocardial Infarction (LA) Last Myocardial Infarction Date:: 12/08/1999 History of Any Multi-Drug Resistant Organisms: None Reported Past Surgical History: Heart Catheterization With Stent Additional Past Surgical History / Comment(s): Cardiac stent Past Anesthesia/Blood Transfusion Reactions: No Reported Reaction Date of Last Stent Placement:: 12/08/1999 Past Psychological History: No Psychological Hx Reported Smoking Status: Current every day smoker Past Alcohol Use History: None Reported Past Drug Use History: Marijuana - Past Family History Father Family Medical History: No Reported History Mother Family Medical History: Unable to Obtain Medications and Allergies Home Medications Medication Instructions Recorded Confirmed Type No Known Home Medications 10/18/22 10/18/22 History Allergies Allergy/AdvReac Type Severity Reaction Status Date / Time No Known Allergies Allergy Verified 10/18/22 08:55 Physical Exam Vitals: Vital Signs Temp Pulse Pulse Resp BP BP Pulse Ox 10/18/22 22:35 10/18/22 21:43 10/18/22 21:13 88/48 10/18/22 20:00 97.4 F L 108 H 22 110/79 96 10/18/22 18:22 96.1 F L 108 H 24 127/90 99 10/18/22 16:59 98.9 F 92 20 97/54 99 10/18/22 15:11 97 20 115/94 99 10/18/22 13:12 98 22 111/89 93 L 10/18/22 11:45 94 18 115/89 95 10/18/22 11:02 85 22 137/109 93 L 10/18/22 09:14 130 H 10/18/22 09:00 154 H 10/18/22 08:13 98.9 F 152 H 26 H 124/90 95 FiO2 10/18/22 22:35 80 10/18/22 21:43 100 10/18/22 21:13 10/18/22 20:00 10/18/22 18:22 10/18/22 16:59 10/18/22 15:11 10/18/22 13:12 10/18/22 11:45 10/18/22 11:02 10/18/22 09:14 10/18/22 09:00 10/18/22 08:13 Intake and Output 10/18/22 10/18/22 10/19/22 14:59 22:59 06:59 Intake Total 10.25 76.841 Output Total 100 Balance 10.25 -23.159 Intake: Intake, IV Titration 10.25 76.841 Amount Diltiazem 125 mg In 10.25 Sodium Chloride 0.9% 100 ml @ 5 MG/HR 5 mls/hr IV .Q24H [facility] Rx#:[id number] Heparin Sod,Pork in 0.45% 76.841 NaCl 25,000 unit In 0.45 % NaCl 1 250ml.bag @ 8.48 UNITS/KG/HR 10.001 mls/ hr IV .Q24H [facility] Rx#: [id number] Output: Urine 100 Other: Voiding Method Urinal # Voids 1 Weight 117.934 kg 117.934 kg GENERAL EXAM: Sedated 57-year-old white male currently synchronous with mechanical ventilator HEAD: Normocephalic and atraumatic EYES: Normal reaction of pupils, equal size. NOSE: Clear with pink turbinates. THROAT: No erythema or exudates. NECK: No obvious goiter, thyroid nodules, masses. CHEST: No chest wall deformity. LUNGS: Equal air entry with coarse bibasilar crackles. no wheeze, rhonchi or dullness. Intubated to the mechanical ventilator. CVS: S1 and S2 normal with no audible murmur, regular rhythm. No extra heart sounds ABDOMEN: Obese abdomen. No hepatosplenomegaly, active bowel sounds, no guarding or rigidity. SPINE: No scoliosis or deformity SKIN: No rashes. Diaphoretic CENTRAL NERVOUS SYSTEM: No focal deficits, tone is normal in all 4 extremities. EXTREMITIES: Bilateral lower extremity 2+ edema. No clubbing, or cyanosis. Peripheral pulses are intact. Results - Laboratory Findings CBC and BMP: 10/19/22 05:40 10/19/22 05:40 ABG ABG pH 7.18 (7.35-7.45) L* 10/18/22 22:17 ABG pCO2 47 mmHg (35-45) H 10/18/22 22:17 ABG pO2 128 mmHg (83-108) H 10/18/22 22:17 ABG O2 Saturation 97.6 % (94-97) H 10/18/22 22:17 PT/INR, D-dimer PT 12.5 sec (9.0-12.0) H 10/18/22 08:35 INR 1.2 (<1.2) H 10/18/22 08:35 D-Dimer 1.22 mg/L FEU (<0.60) H 10/18/22 08:35 Abnormal lab findings: Abnormal Labs 10/18/22 10/18/22 10/18/22 08:35 08:35 08:35 WBC 11.4 H Neutrophils # 8.6 H PT 12.5 H INR 1.2 H D-Dimer 1.22 H ABG pH ABG pCO2 ABG pO2 ABG HCO3 ABG O2 Saturation Potassium Chloride 109 H Carbon Dioxide 20 L BUN 23 H Creatinine Glucose 128 H POC Glucose (mg/dL) Plasma Lactic Acid Nik Total Bilirubin 2.0 H Troponin I HDL Cholesterol TSH Free T4 10/18/22 10/18/22 10/18/22 08:35 08:35 11:32 WBC Neutrophils # PT INR D-Dimer ABG pH ABG pCO2 ABG pO2 ABG HCO3 ABG O2 Saturation Potassium Chloride Carbon Dioxide BUN Creatinine Glucose POC Glucose (mg/dL) Plasma Lactic Acid Nik 2.4 H* Total Bilirubin Troponin I 3.190 H* HDL Cholesterol 28.20 L TSH <0.015 L Free T4 4.14 H 10/18/22 10/18/22 10/18/22 11:32 11:32 15:27 WBC Neutrophils # PT INR D-Dimer ABG pH ABG pCO2 ABG pO2 ABG HCO3 ABG O2 Saturation Potassium Chloride Carbon Dioxide BUN Creatinine Glucose POC Glucose (mg/dL) Plasma Lactic Acid Nik 2.5 H* Total Bilirubin Troponin I 2.690 H* 2.240 H* HDL Cholesterol TSH Free T4 10/18/22 10/18/22 10/18/22 15:27 18:54 20:49 WBC Neutrophils # PT INR D-Dimer ABG pH ABG pCO2 ABG pO2 ABG HCO3 ABG O2 Saturation Potassium Chloride Carbon Dioxide BUN Creatinine Glucose POC Glucose (mg/dL) 119 H Plasma Lactic Acid Nik 2.1 H* 3.4 H* Total Bilirubin Troponin I HDL Cholesterol TSH Free T4 10/18/22 10/18/22 10/18/22 22:17 22:34 22:34 WBC Neutrophils # PT INR D-Dimer ABG pH 7.18 L* ABG pCO2 47 H ABG pO2 128 H ABG HCO3 18 L ABG O2 Saturation 97.6 H Potassium 5.2 H Chloride Carbon Dioxide 16 L BUN 27 H Creatinine 1.46 H Glucose 170 H POC Glucose (mg/dL) Plasma Lactic Acid Nik Total Bilirubin Troponin I 2.560 H* HDL Cholesterol TSH Free T4 10/18/22 22:34 WBC Neutrophils # PT INR D-Dimer ABG pH ABG pCO2 ABG pO2 ABG HCO3 ABG O2 Saturation Potassium Chloride Carbon Dioxide BUN Creatinine Glucose POC Glucose (mg/dL) Plasma Lactic Acid Nik 5.1 H* Total Bilirubin Troponin I HDL Cholesterol TSH Free T4 - Diagnostic Findings Chest x-ray: image reviewed CT scan - chest: image reviewed Assessment and Plan Assessment: Acute non-ST elevation LA. Patient's troponin peaked at 3.19 and was initially trending down. Acute exacerbation of chronic systolic congestive heart failure secondary to above. Most recent echocardiogram shows reduced ejection fraction of 35-40%, moderate tricuspid regurgitation, and moderate mitral regurgitation Acute hypoxemic and hypercapnic respiratory failure secondary to above, currently intubated on mechanical ventilator Lactic acidosis Acute high anion gap metabolic acidosis related to above Acute kidney injury Atrial fibrillation with rapid ventricular rate. Improved, currently in normal sinus rhythm Hyperthyroidism, TSH undetectable and free T4 4.14 coronary artery disease with a remote history of stent Current nicotine dependence History of CVA with right-sided hemiparesis Hypertension Hyperlipidemia Medication noncompliance morbid obesity with BMI of 37 Plan: Patient's medication, labs, chest x-ray, chest CTA were reviewed Patient will remain intubated to the mechanical ventilator Increase respiratory rate to 28 breaths per minute. Advance ET tube 1 cm Repeat chest x-ray in the morning Repeat ABG in the morning Continue IV heparin per protocol Cardiology was consulted and updated Continue diuresis Monitor intake and output Patient's condition is currently critical, and this was discussed with patient's family. patient is currently a FULL CODE. I have personally seen and examined the patient, performed the documentation and the assessment and plan as written. Number of minutes spent on the visit:20 Patient is seen in collaboration with the nurse practitioner. The patient is currently intubated on a mechanical ventilator. The patient is on propofol at 50 mcg/kg/m. The patient remains on a mechanical ventilator. Vent settings are noted. Chest x-ray is consistent with pulmonary edema. ET tube was in a good location. The subsequent blood gases from this morning showed improvement in acid base status. The patient has a pH of 7.34 with a pCO2 of 41 and a pO2 of 219. FiO2 has been dropped down to 40%. The patient is on no pressors. His c ardiac rhythm is sinus. He is, comfortable and symptoms of mechanical ventilator. Urine output is in order of 20-30 mL an hour. He remains on IV heparin. Echocardiogram was noted and the patient has an ejection fraction of 35-40% and there is moderate to severe LV dysfunction with moderate tricuspid regurgitation, moderate mitral regurgitation. Plan Intubation on mechanical ventilator for now. Keep the patient on sedation. Start Lasix 40 mg IV every 12 hours. Obtain ultrasound the kidneys. Rule out beta blockers as long as the patient's blood pressure tolerates. Continue aspirin. Continue heparin. Continue to follow. Evaluation was on a more than 30 minutes. Time with Patient: Greater than 30
[2022-10-19] MEDS: NITROGLYCERIN OINT 1 INCH/GM PACKET TOPICAL SCH (03:37)
[2022-10-19] MEDS ORDERED: AMIODARONE 450 MG in DEXTROSE 5% IN WATER 250 ML IV SCH ×2 (05:22)
[2022-10-19] MEDS: HEPARIN SOD,PORK IN 0.45% NACL 25,000 UNIT in 0.45% NACL 1 250ML.BAG IV SCH ×2 (05:37→20:35)
[2022-10-19 06:08] LABS: Basophils % (A) 0 %; Eosinophils # (A) 0.1 k/uL (0-0.7); Eosinophils % (A) 0 %; HCT 40.4 % (39.0-53.0); HGB 13.5 gm/dL (13.0-17.5); Lymphocytes # (A) 1.8 k/uL (1.0-4.8); Lymphocytes % (A) 11 %; MCH 29.8 pg (25.0-35.0); MCHC 33.4 g/dL (31.0-37.0); MCV 89.4 fL (80.0-100.0); Mean Platelet Volume 7.9; Monocytes # (A) 1.1 k/uL (0-1.0); Monocytes % (A) 7 %; Neutrophils # (A) 13.1 k/uL (1.3-7.7); Neutrophils % (A) 81 %; Platelet Count 330 k/uL (150-450); RBC 4.51 m/uL (4.30-5.90); RDW 14.1 % (11.5-15.5); WBC 16.3 k/uL (3.8-10.6)
[2022-10-19 06:14] LABS: ABG Base Excess -3.9 mmol/L; ABG HCO3 22 mmol/L (21-25); ABG PCO2 41 mmHg (35-45); ABG PH 7.34 (7.35-7.45); ABG PO2 209 mmHg (83-108); ABG TCO2 23 mmol/L (19-24); Allen Test Performed? Yes
[2022-10-19 06:21] LABS: INR 1.2 (<1.2); Prothrombin Time 12.8 sec (9.0-12.0)
[2022-10-19] MEDS ORDERED: SODIUM CHLORIDE 0.9% 500 ML 500 ML IV ONE (06:22)
[2022-10-19 06:27] LABS: African American GFR (CKD) 38 (>60 ml/min/1.73 sqM); Anion Gap 9 mmol/L; Blood Urea Nitrogen 33 mg/dL (9-20); Calcium 8.4 mg/dL (8.4-10.2); Carbon Dioxide 21 mmol/L (22-30); Chloride 107 mmol/L (98-107); Glucose 98 mg/dL (74-99); Non-African American GFR(CKD) 33 (>60 ml/min/1.73 sqM); Potassium 5.2 mmol/L (3.5-5.1); Sodium 137 mmol/L (137-145)
--- NOTE | 2022-10-19 06:33 | XR ---
EXAMINATION TYPE: XR chest 1V portable DATE OF EXAM: 10/19/2022 CLINICAL HISTORY: Difficulty breathing progress study. TECHNIQUE: Single AP portable semiupright view of the chest is obtained. COMPARISON: Chest x-ray from one day earlier and older studies FINDINGS: Stable endotracheal and orogastric tubes. Persistent increased markings bilaterally with perhaps slight improvement from one day earlier. Persi stent cardiomegaly. No pneumothorax seen bilaterally. Osseous structures are intact. IMPRESSION: Cardiomegaly with bilateral edema and/or infiltrates again seen. Findings may be slightly improved from one day earlier.
--- NOTE | 2022-10-19 07:10 | P.PN ---
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 His troponin on presentation was elevated. During the night he became more tachypneic requiring mechanical ventilation. He is intubated and sedated at this time. He is back in sinus mechanism, he had episode of hypotension that improved. His urine output is low. He underwent an echocardiogram that showed an ejection fraction of 35-40% with severe pulmonary hypertension, moderate mitral with moderate severe tricuspid regurgitation. On the monitor he has ventricular ectopic activity but he continues to be in sinus mechanism. His chest x-ray was consistent with pulmonary congestion. He was acidotic at the time of intubation. His lab data is consistent with hyperthyroidism. Medications: Aspirin, Lipitor 80 mg daily, IV Cardizem, IV heparin. Metoprolol 25 mg twice a day, Nitropaste 1 inch every 8 hours, Aldactone 25 mg daily. PHYSICAL EXAMINATION: Blood pressure 97/60 heart rate 88, intubated and sedated LUNGS: Clear to auscultation anteriorly HEART: Regular rate and rhythm, S1, S2. No S3. systolic murmur at the base ABDOMEN: Soft, positive bowel sounds, no organomegaly EXTREMETIES: Trace to 1+ edema LAB: Hemoglobin 13.5, white blood cell 16.3. PH 7.34. Potassium 5.2, BUN 33, creatinine 2.23. His troponin is down to 2.56 IMPRESSION: 1. Acute respiratory failure with evidence of CHF and impaired systolic function 2. Non-STEMI, the troponin is trending downward, the peak is on clear 3. Severe pulmonary hypertension with significant mitral and tricuspid regurgitation of unknown duration 4. Paroxysmal atrial flutter 5. History of CVA 6. History of CAD and prior stenting 7. Chronic tobacco use 8. Noncompliance 9. Worsening renal failure with acute renal injury PLAN: 1. Stop nitrate and Aldactone 2. Stop Cardizem 3. Continue IV heparin 4. Follow renal functions 5. No cardiac catheterization at this time in view of the status 6. Depending on his progress further recommendations will be made, prognosis is guarded Objective - Vital Signs Vital signs: Vital Signs Temp 99.3 F 04/18/23 04:00 Pulse 92 10/19/22 06:00 Resp 27 H 10/19/22 06:00 BP 134/104 10/18/22 22:30 Pulse Ox 98 10/19/22 06:00 FiO2 40 10/19/22 06:24 Intake & Output 10/18/22 10/19/22 10/19/22 18:59 06:59 18:59 Intake Total 87.091 795.574 Output Total 320 Balance 87.091 475.574 Weight 117.934 kg Intake: IV 500 NS 500 cc Bolus 500 Intake, IV Titration 87.091 295.574 Amount Diltiazem 125 mg In 10.25 Sodium Chloride 0.9% 100 ml @ 5 MG/HR 5 mls/hr IV .Q24H [facility] Rx#:[id number] Heparin Sod,Pork in 0.45% 76.841 173.159 NaCl 25,000 unit In 0.45 % NaCl 1 250ml.bag @ 8.48 UNITS/KG/HR 10.001 mls/ hr IV .Q24H [facility] Rx#: [id number] propofoL 1,000 mg In 122.415 Empty Bag 1 bag @ 15 MCG/ KG/MIN 10.614 mls/hr IV . [id number] [facility] Rx#:[id number] Output: Urine 320 Other: Voiding Method Indwelling Catheter # Voids 1 ABP, PAP, CO, CI - Last Documented Arterial Blood Pressure 96/63 - Labs CBC & Chem 7: 10/19/22 05:40 10/19/22 05:40 Labs: Abnormal Lab Results - Last 24 Hours (Table) 10/18/22 10/18/22 10/18/22 Range/Units 08:35 08:35 08:35 WBC 11.4 H (3.8-10.6) k/uL Neutrophils # 8.6 H (1.3-7.7) k/uL Monocytes # (0-1.0) k/uL PT 12.5 H (9.0-12.0) sec INR 1.2 H (<1.2) D-Dimer 1.22 H (<0.60) mg/L FEU ABG pH (7.35-7.45) ABG pCO2 (35-45) mmHg ABG pO2 (83-108) mmHg ABG HCO3 (21-25) mmol/L ABG O2 Saturation (94-97) % Potassium (3.5-5.1) mmol/L Chloride 109 H (98-107) mmol/L Carbon Dioxide 20 L (22-30) mmol/L BUN 23 H (9-20) mg/dL Creatinine (0.66-1.25) mg/dL Glucose 128 H (74-99) mg/dL POC Glucose (mg/dL) (70-110) mg/dL Plasma Lactic Acid Nik (0.7-2.0) mmol/L Total Bilirubin 2.0 H (0.2-1.3) mg/dL Troponin I (0.000-0.034) ng/mL HDL Cholesterol (40.00-60.00) mg/dL TSH (0.465-4.680) mIU/L Free T4 (0.78-2.19) ng/dL 10/18/22 10/18/22 10/18/22 Range/Units 08:35 08:35 11:32 WBC (3.8-10.6) k/uL Neutrophils # (1.3-7.7) k/uL Monocytes # (0-1.0) k/uL PT (9.0-12.0) sec INR (<1.2) D-Dimer (<0.60) mg/L FEU ABG pH (7.35-7.45) ABG pCO2 (35-45) mmHg ABG pO2 (83-108) mmHg ABG HCO3 (21-25) mmol/L ABG O2 Saturation (94-97) % Potassium (3.5-5.1) mmol/L Chloride (98-107) mmol/L Carbon Dioxide (22-30) mmol/L BUN (9-20) mg/dL Creatinine (0.66-1.25) mg/dL Glucose (74-99) mg/dL POC Glucose (mg/dL) (70-110) mg/dL Plasma Lactic Acid Nik 2.4 H* (0.7-2.0) mmol/L Total Bilirubin (0.2-1.3) mg/dL Troponin I 3.190 H* (0.000-0.034) ng/mL HDL Cholesterol 28.20 L (40.00-60.00) mg/dL TSH <0.015 L (0.465-4.680) mIU/L Free T4 4.14 H (0.78-2.19) ng/dL 10/18/22 10/18/22 10/18/22 Range/Units 11:32 11:32 15:27 WBC (3.8-10.6) k/uL Neutrophils # (1.3-7.7) k/uL Monocytes # (0-1.0) k/uL PT (9.0-12.0) sec INR (<1.2) D-Dimer (<0.60) mg/L FEU ABG pH (7.35-7.45) ABG pCO2 (35-45) mmHg ABG pO2 (83-108) mmHg ABG HCO3 (21-25) mmol/L ABG O2 Saturation (94-97) % Potassium (3.5-5.1) mmol/L Chloride (98-107) mmol/L Carbon Dioxide (22-30) mmol/L BUN (9-20) mg/dL Creatinine (0.66-1.25) mg/dL Glucose (74-99) mg/dL POC Glucose (mg/dL) (70-110) mg/dL Plasma Lactic Acid Nik 2.5 H* (0.7-2.0) mmol/L Total Bilirubin (0.2-1.3) mg/dL Troponin I 2.690 H* 2.240 H* (0.000-0.034) ng/mL HDL Cholesterol (40.00-60.00) mg/dL TSH (0.465-4.680) mIU/L Free T4 (0.78-2.19) ng/dL 10/18/22 10/18/22 10/18/22 Range/Units 15:27 18:54 20:49 WBC (3.8-10.6) k/uL Neutrophils # (1.3-7.7) k/uL Monocytes # (0-1.0) k/uL PT (9.0-12.0) sec INR (<1.2) D-Dimer (<0.60) mg/L FEU ABG pH (7.35-7.45) ABG pCO2 (35-45) mmHg ABG pO2 (83-108) mmHg ABG HCO3 (21-25) mmol/L ABG O2 Saturation (94-97) % Potassium (3.5-5.1) mmol/L Chloride (98-107) mmol/L Carbon Dioxide (22-30) mmol/L BUN (9-20) mg/dL Creatinine (0.66-1.25) mg/dL Glucose (74-99) mg/dL POC Glucose (mg/dL) 119 H (70-110) mg/dL Plasma Lactic Acid Nik 2.1 H* 3.4 H* (0.7-2.0) mmol/L Total Bilirubin (0.2-1.3) mg/dL Troponin I (0.000-0.034) ng/mL HDL Cholesterol (40.00-60.00) mg/dL TSH (0.465-4.680) mIU/L Free T4 (0.78-2.19) ng/dL 10/18/22 10/18/22 10/18/22 Range/Units 22:17 22:34 22:34 WBC (3.8-10.6) k/uL Neutrophils # (1.3-7.7) k/uL Monocytes # (0-1.0) k/uL PT (9.0-12.0) sec INR (<1.2) D-Dimer (<0.60) mg/L FEU ABG pH 7.18 L* (7.35-7.45) ABG pCO2 47 H (35-45) mmHg ABG pO2 128 H (83-108) mmHg ABG HCO3 18 L (21-25) mmol/L ABG O2 Saturation 97.6 H (94-97) % Potassium 5.2 H (3.5-5.1) mmol/L Chloride (98-107) mmol/L Carbon Dioxide 16 L (22-30) mmol/L BUN 27 H (9-20) mg/dL Creatinine 1.46 H (0.66-1.25) mg/dL Glucose 170 H (74-99) mg/dL POC Glucose (mg/dL) (70-110) mg/dL Plasma Lactic Acid Nik (0.7-2.0) mmol/L Total Bilirubin (0.2-1.3) mg/dL Troponin I 2.560 H* (0.000-0.034) ng/mL HDL Cholesterol (40.00-60.00) mg/dL TSH (0.465-4.680) mIU/L Free T4 (0.78-2.19) ng/dL 10/18/22 10/19/22 10/19/22 Range/Units 22:34 05:40 05:40 WBC 16.3 H (3.8-10.6) k/uL Neutrophils # 13.1 H (1.3-7.7) k/uL Monocytes # 1.1 H (0-1.0) k/uL PT 12.8 H (9.0-12.0) sec INR 1.2 H (<1.2) D-Dimer (<0.60) mg/L FEU ABG pH (7.35-7.45) ABG pCO2 (35-45) mmHg ABG pO2 (83-108) mmHg ABG HCO3 (21-25) mmol/L ABG O2 Saturation (94-97) % Potassium (3.5-5.1) mmol/L Chloride (98-107) mmol/L Carbon Dioxide (22-30) mmol/L BUN (9-20) mg/dL Creatinine (0.66-1.25) mg/dL Glucose (74-99) mg/dL POC Glucose (mg/dL) (70-110) mg/dL Plasma Lactic Acid Nik 5.1 H* (0.7-2.0) mmol/L Total Bilirubin (0.2-1.3) mg/dL Troponin I (0.000-0.034) ng/mL HDL Cholesterol (40.00-60.00) mg/dL TSH (0.465-4.680) mIU/L Free T4 (0.78-2.19) ng/dL 10/19/22 10/19/22 Range/Units 05:40 06:11 WBC (3.8-10.6) k/uL Neutrophils # (1.3-7.7) k/uL Monocytes # (0-1.0) k/uL PT (9.0-12.0) sec INR (<1.2) D-Dimer (<0.60) mg/L FEU ABG pH 7.34 L (7.35-7.45) ABG pCO2 (35-45) mmHg ABG pO2 209 H (83-108) mmHg ABG HCO3 (21-25) mmol/L ABG O2 Saturation 100.0 H (94-97) % Potassium 5.2 H (3.5-5.1) mmol/L Chloride (98-107) mmol/L Carbon Dioxide 21 L (22-30) mmol/L BUN 33 H (9-20) mg/dL Creatinine 2.13 H (0.66-1.25) mg/dL Glucose (74-99) mg/dL POC Glucose (mg/dL) (70-110) mg/dL Plasma Lactic Acid Nik (0.7-2.0) mmol/L Total Bilirubin (0.2-1.3) mg/dL Troponin I (0.000-0.034) ng/mL HDL Cholesterol (40.00-60.00) mg/dL TSH (0.465-4.680) mIU/L Free T4 (0.78-2.19) ng/dL Microbiology - Last 24 Hours (Table) 10/18/22 22:10 Sputum Culture - Preliminary Sputum
--- NOTE | 2022-10-19 07:36 | P.PN ---
Subjective Progress Note Date: 10/19/22 On today's evaluation of 2022, the patient is being seen in follow-up. The patient was intubated yesterday because of an acute hypoxic respiratory failure, acute non-ST segment elevation myocardial infarction. The patient was also in acute pulmonary edema and he also developed an acute kidney injury. Echocardiogram was done and the patient showed moderate impairment of LV function with an ejection fraction of 35-40% and the patient also had moderate degree of mitral regurgitation. His troponins peaked at 3.19. The patient is currently sedated on propofol running at 50 mcg/kg/m. He is, comfortable and symptoms of mechanical ventilator. His assist control mode at a rate of 28, tidal volume of 500, FiO2 40% with a PEEP of 5. The blood gas from today shows improvement in acid base status. The pH is at 7.34 andPCO2 is at 41 with a pO2 of 219. The patient is producing urine output in the order of 20-30 mL an hour. The discomfort 16.3 with hemoglobin 13.5 and a platelet count of 3:30. BUN is at 33 with a creatinine of 2.1 and the patient has developed an acute kidney injury. His baseline creatinine at time of admission was at 1.46. His potassium levels at 5.2. The patient remains on aspirin. The patient is on IV heparin. The patient was started on beta blockers. Blood pressure is soft and the patient has not required any pressors. The patient's cardiac rhythm is sinus and the patient is having frequent PVCs. Otherwise, he is afebrile. No other significant events overnight. Objective - Vital Signs Vital signs: Vital Signs Temp 99.3 F 10/19/22 04:00 Pulse 88 10/19/22 07:00 Resp 42 H 10/19/22 07:00 BP 134/104 10/18/22 22:30 Pulse Ox 99 10/19/22 07:00 FiO2 40 10/19/22 06:24 Intake & Output 10/18/22 10/19/22 10/19/22 18:59 06:59 18:59 Intake Total 87.091 795.574 500 Output Total 320 50 Balance 87.091 475.574 450 Weight 117.934 kg Intake: IV 500 500 NS 500 cc Bolus 500 Sodium Chloride 0.9% 500 500 ml 500 ml @ 999 mls/hr IV .Q31M [facility] Rx#:[id number] Intake, IV Titration 87.091 295.574 Amount Diltiazem 125 mg In 10.25 Sodium Chloride 0.9% 100 ml @ 5 MG/HR 5 mls/hr IV .Q24H [facility] Rx#:[id number] Heparin Sod,Pork in 0.45% 76.841 173.159 NaCl 25,000 unit In 0.45 % NaCl 1 250ml.bag @ 8.48 UNITS/KG/HR 10.001 mls/ hr IV .Q24H [facility] Rx#: [id number] propofoL 1,000 mg In 122.415 Empty Bag 1 bag @ 15 MCG/ KG/MIN 10.614 mls/hr IV . Q9H26M [facility] Rx#:[id number] Output: Urine 320 50 Other: Voiding Method Indwelling Catheter # Voids 1 ABP, PAP, CO, CI - Last Documented Arterial Blood Pressure 97/64 - Exam GENERAL EXAM: Sedated 57-year-old white male currently synchronous with mechanical ventilator HEAD: Normocephalic and atraumatic EYES: Normal reaction of pupils, equal size. NOSE: Clear with pink turbinates. THROAT: No erythema or exudates. NECK: No obvious goiter, thyroid nodules, masses. CHEST: No chest wall deformity. LUNGS: Equal air entry with coarse bibasilar crackles. no wheeze, rhonchi or dullness. Intubated to the mechanical ventilator. CVS: S1 and S2 normal with no audible murmur, regular rhythm. No extra heart sounds ABDOMEN: Obese abdomen. No hepatosplenomegaly, active bowel sounds, no guarding or rigidity. SPINE: No scoliosis or deformity SKIN: No rashes. Diaphoretic CENTRAL NERVOUS SYSTEM: No focal deficits, tone is normal in all 4 extremities. EXTREMITIES: Bilateral lower extremity 2+ edema. No clubbing, or cyanosis. Peripheral pulses are intact. - Labs CBC & Chem 7: 10/19/22 05:40 10/19/22 05:40 Labs: Abnormal Lab Results - Last 24 Hours (Table) 10/18/22 10/18/22 10/18/22 Range/Units 08:35 08:35 08:35 WBC 11.4 H (3.8-10.6) k/uL Neutrophils # 8.6 H (1.3-7.7) k/uL Monocytes # (0-1.0) k/uL PT 12.5 H (9.0-12.0) sec INR 1.2 H (<1.2) D-Dimer 1.22 H (<0.60) mg/L FEU ABG pH (7.35-7.45) ABG pCO2 (35-45) mmHg ABG pO2 (83-108) mmHg ABG HCO3 (21-25) mmol/L ABG O2 Saturation (94-97) % Potassium (3.5-5.1) mmol/L Chloride 109 H (98-107) mmol/L Carbon Dioxide 20 L (22-30) mmol/L BUN 23 H (9-20) mg/dL Creatinine (0.66-1.25) mg/dL Glucose 128 H (74-99) mg/dL POC Glucose (mg/dL) (70-110) mg/dL Plasma Lactic Acid Nik (0.7-2.0) mmol/L Total Bilirubin 2.0 H (0.2-1.3) mg/dL Troponin I (0.000-0.034) ng/mL HDL Cholesterol (40.00-60.00) mg/dL TSH (0.465-4.680) mIU/L Free T4 (0.78-2.19) ng/dL 10/18/22 10/18/22 10/18/22 Range/Units 08:35 08:35 11:32 WBC (3.8-10.6) k/uL Neutrophils # (1.3-7.7) k/uL Monocytes # (0-1.0) k/uL PT (9.0-12.0) sec INR (<1.2) D-Dimer (<0.60) mg/L FEU ABG pH (7.35-7.45) ABG pCO2 (35-45) mmHg ABG pO2 (83-108) mmHg ABG HCO3 (21-25) mmol/L ABG O2 Saturation (94-97) % Potassium (3.5-5.1) mmol/L Chloride (98-107) mmol/L Carbon Dioxide (22-30) mmol/L BUN (9-20) mg/dL Creatinine (0.66-1.25) mg/dL Glucose (74-99) mg/dL POC Glucose (mg/dL) (70-110) mg/dL Plasma Lactic Acid Nik 2.4 H* (0.7-2.0) mmol/L Total Bilirubin (0.2-1.3) mg/dL Troponin I 3.190 H* (0.000-0.034) ng/mL HDL Cholesterol 28.20 L (40.00-60.00) mg/dL TSH <0.015 L (0.465-4.680) mIU/L Free T4 4.14 H (0.78-2.19) ng/dL 10/18/22 10/18/22 10/18/22 Range/Units 11:32 11:32 15:27 WBC (3.8-10.6) k/uL Neutrophils # (1.3-7.7) k/uL Monocytes # (0-1.0) k/uL PT (9.0-12.0) sec INR (<1.2) D-Dimer (<0.60) mg/L FEU ABG pH (7.35-7.45) ABG pCO2 (35-45) mmHg ABG pO2 (83-108) mmHg ABG HCO3 (21-25) mmol/L ABG O2 Saturation (94-97) % Potassium (3.5-5.1) mmol/L Chloride (98-107) mmol/L Carbon Dioxide (22-30) mmol/L BUN (9-20) mg/dL Creatinine (0.66-1.25) mg/dL Glucose (74-99) mg/dL POC Glucose (mg/dL) (70-110) mg/dL Plasma Lactic Acid Nik 2.5 H* (0.7-2.0) mmol/L Total Bilirubin (0.2-1.3) mg/dL Troponin I 2.690 H* 2.240 H* (0.000-0.034) ng/mL HDL Cholesterol (40.00-60.00) mg/dL TSH (0.465-4.680) mIU/L Free T4 (0.78-2.19) ng/dL 10/18/22 10/18/22 10/18/22 Range/Units 15:27 18:54 20:49 WBC (3.8-10.6) k/uL Neutrophils # (1.3-7.7) k/uL Monocytes # (0-1.0) k/uL PT (9.0-12.0) sec INR (<1.2) D-Dimer (<0.60) mg/L FEU ABG pH (7.35-7.45) ABG pCO2 (35-45) mmHg ABG pO2 (83-108) mmHg ABG HCO3 (21-25) mmol/L ABG O2 Saturation (94-97) % Potassium (3.5-5.1) mmol/L Chloride (98-107) mmol/L Carbon Dioxide (22-30) mmol/L BUN (9-20) mg/dL Creatinine (0.66-1.25) mg/dL Glucose (74-99) mg/dL POC Glucose (mg/dL) 119 H (70-110) mg/dL Plasma Lactic Acid Nik 2.1 H* 3.4 H* (0.7-2.0) mmol/L Total Bilirubin (0.2-1.3) mg/dL Troponin I (0.000-0.034) ng/mL HDL Cholesterol (40.00-60.00) mg/dL TSH (0.465-4.680) mIU/L Free T4 (0.78-2.19) ng/dL 10/18/22 10/18/22 10/18/22 Range/Units 22:17 22:34 22:34 WBC (3.8-10.6) k/uL Neutrophils # (1.3-7.7) k/uL Monocytes # (0-1.0) k/uL PT (9.0-12.0) sec INR (<1.2) D-Dimer (<0.60) mg/L FEU ABG pH 7.18 L* (7.35-7.45) ABG pCO2 47 H (35-45) mmHg ABG pO2 128 H (83-108) mmHg ABG HCO3 18 L (21-25) mmol/L ABG O2 Saturation 97.6 H (94-97) % Potassium 5.2 H (3.5-5.1) mmol/L Chloride (98-107) mmol/L Carbon Dioxide 16 L (22-30) mmol/L BUN 27 H (9-20) mg/dL Creatinine 1.46 H (0.66-1.25) mg/dL Glucose 170 H (74-99) mg/dL POC Glucose (mg/dL) (70-110) mg/dL Plasma Lactic Acid Nik (0.7-2.0) mmol/L Total Bilirubin (0.2-1.3) mg/dL Troponin I 2.560 H* (0.000-0.034) ng/mL HDL Cholesterol (40.00-60.00) mg/dL TSH (0.465-4.680) mIU/L Free T4 (0.78-2.19) ng/dL 10/18/22 10/19/22 10/19/22 Range/Units 22:34 05:40 05:40 WBC 16.3 H (3.8-10.6) k/uL Neutrophils # 13.1 H (1.3-7.7) k/uL Monocytes # 1.1 H (0-1.0) k/uL PT 12.8 H (9.0-12.0) sec INR 1.2 H (<1.2) D-Dimer (<0.60) mg/L FEU ABG pH (7.35-7.45) ABG pCO2 (35-45) mmHg ABG pO2 (83-108) mmHg ABG HCO3 (21-25) mmol/L ABG O2 Saturation (94-97) % Potassium (3.5-5.1) mmol/L Chloride (98-107) mmol/L Carbon Dioxide (22-30) mmol/L BUN (9-20) mg/dL Creatinine (0.66-1.25) mg/dL Glucose (74-99) mg/dL POC Glucose (mg/dL) (70-110) mg/dL Plasma Lactic Acid Nik 5.1 H* (0.7-2.0) mmol/L Total Bilirubin (0.2-1.3) mg/dL Troponin I (0.000-0.034) ng/mL HDL Cholesterol (40.00-60.00) mg/dL TSH (0.465-4.680) mIU/L Free T4 (0.78-2.19) ng/dL 10/19/22 10/19/22 Range/Units 05:40 06:11 WBC (3.8-10.6) k/uL Neutrophils # (1.3-7.7) k/uL Monocytes # (0-1.0) k/uL PT (9.0-12.0) sec INR (<1.2) D-Dimer (<0.60) mg/L FEU ABG pH 7.34 L (7.35-7.45) ABG pCO2 (35-45) mmHg ABG pO2 209 H (83-108) mmHg ABG HCO3 (21-25) mmol/L ABG O2 Saturation 100.0 H (94-97) % Potassium 5.2 H (3.5-5.1) mmol/L Chloride (98-107) mmol/L Carbon Dioxide 21 L (22-30) mmol/L BUN 33 H (9-20) mg/dL Creatinine 2.13 H (0.66-1.25) mg/dL Glucose (74-99) mg/dL POC Glucose (mg/dL) (70-110) mg/dL Plasma Lactic Acid Nik (0.7-2.0) mmol/L Total Bilirubin (0.2-1.3) mg/dL Troponin I (0.000-0.034) ng/mL HDL Cholesterol (40.00-60.00) mg/dL TSH (0.465-4.680) mIU/L Free T4 (0.78-2.19) ng/dL Microbiology - Last 24 Hours (Table) 10/18/22 22:10 Sputum Culture - Preliminary Sputum Assessment and Plan Plan: Acute exacerbation of chronic systolic congestive heart failure secondary to above. Most recent echocardiogram shows reduced ejection fraction of 35-40%, moderate tricuspid regurgitation, and moderate mitral regurgitation Acute hypoxemic and hypercapnic respiratory failure secondary to above, currently intubated on mechanical ventilator Lactic acidosis Acute high anion gap metabolic acidosis related to above Acute kidney injury Atrial fibrillation with rapid ventricular rate. Improved, currently in normal sinus rhythm Hyperthyroidism, TSH undetectable and free T4 4.14 coronary artery disease with a remote history of stent Current nicotine dependence History of CVA with right-sided hemiparesis Hypertension Hyperlipidemia Medication noncompliance morbid obesity with BMI of 37 Plan Continue vent support, FiO2 has been dropped down to 40%, no other vegetative changes for today Chest x-ray from today was noted Start the patient on Lasix 40 mg IV every 12 hours Obtain also the kidneys Continue aspirin and IV heparin Allow beta blockers as long as the patient's blood pressure tolerates Keep the Wang catheter in place Ultrasound the kidneys Monitor potassium Condition is obvious significant exam will continue to follow make further r ecommendations. Merchandise Executive on the case. Critical care evaluation, more than 30 minutes. Time with Patient: Greater than 30
[2022-10-19] MEDS: CHLORHEXIDINE GLUCONATE 15 ML CUP MUCOUS MEM SCH ×2 (08:16→20:36)
[2022-10-19] MEDS: HEPARIN SODIUM 1,000 UN/ML (10ML VL) IV PRN (08:16)
[2022-10-19] MEDS: ASPIRIN 81 MG PO SCH (08:16)
[2022-10-19] MEDS: PANTOPRAZOLE 40 MG/10 ML VIAL IVP SCH (08:16)
[2022-10-19] MEDS: FUROSEMIDE 10 MG/ML 4 ML VIAL IV SCH ×2 (08:16→20:36)
[2022-10-19] MEDS: METOPROLOL TARTRATE 25 MG TAB PO SCH ×2 (08:21→20:36)
--- NOTE | 2022-10-19 08:55 | US ---
EXAMINATION TYPE: US kidneys/renal and bladder DATE OF EXAM: 10/19/2022 COMPARISON: NONE CLINICAL INDICATION: Male, 57 years old with history of hydronephrosis; EXAM MEASUREMENTS: Right Kidney: 11.8 x 6.2 x 5.0 cm Left Kidney: 10.9 x 6.9 x 6.1 cm Right Kidney: No hydronephrosis or masses seen Left Kidney: Limited due to gas. No hydronephrosis or masses seen Bladder: Not distended. Patient has catheter in place. Bilateral Jets seen: No IMPRESSION: 1. No evidence of obstructive uropathy. Limited evaluation of the left kidney. 2. Wang catheter in place.
[2022-10-19] MEDS ORDERED: ASPIRIN 325 MG TAB PO SCH (09:00)
[2022-10-19] MEDS ORDERED: ACETAMINOPHEN TAB 325 MG TAB PO PRN (09:04)
[2022-10-19] MEDS: fentaNYL (PF). 1,000 MCG in SODIUM CHLORIDE 0.9% 80 ML IV SCH ×2 (10:27→23:08)
[2022-10-19] MEDS: methIMAzole 5 MG TAB PO SCH ×2 (13:37→21:51)
--- NOTE | 2022-10-19 13:44 | P.PN ---
Subjective Progress Note Date: 10/19/22 57-year-old male with a missed known history of coronary artery disease with stents in the past and failure came in with compensative shortness of breath and orthopnea paroxysmal nocturnal dyspnea elevated troponin and found to be in heart failure with bilateral pleural effusions and elevated proBNP of 11,000. Patient did have orthopnea and proximal lateral dyspnea increased of bilateral pedal edema. Patient has stopped taking his medications about 2 months ago including antiplatelet medications and diuretics and continues to smoke a pack of cigarettes per day patient does have elevated d-dimer because of which CT of the chest was opted which did not show any pulmonary embolism. Patient is also found to be in atrial fibrillation with rapid ventricular rate and was started on IV heparin. Patient is supposed to be on Coumadin as an outpatient. 10/19/2022 Patient evaluated today in intensive care unit, patient is currently intubated and sedated. Required intubation around 0 last night secondary to increased shortness of breath and respiratory distress. Patient was also noted to be diap horetic. Chest xray this morning showing cardiomegaly with bilateral edema/infiltrates. Findings are slightly improved. Creatinine is increased up to 2.13 today, patient has been maintained on IV lasix Q12. Indwelling catheter in place, abdomen/bladder ultrasound completed today showing no hydronephrosis or obstructive uropathy. Lactic acid is down to 1.5. TSH found to be <0.015 and Free T4 of 4.14. Unable to complete review of systems patient is currently intubated and sedated PHYSICAL EXAMINATION: GENERAL: The patient is sedated, not in any acute distress. Well developed, well nourished. HEENT: Pupils are round and equally reacting to light. EOMI. No scleral icterus. No conjunctival pallor. Normocephalic, atraumatic. No pharyngeal erythema. No thyromegaly. CARDIOVASCULAR: S1 and S2 present. No murmurs, rubs, or gallops. PULMONARY: Bibasilar crackles ABDOMEN: Soft, nontender, nondistended, normoactive bowel sounds. No palpable organomegaly. MUSCULOSKELETAL: No joint swelling or deformity. EXTREMITIES: No cyanosis, clubbing, patient does have 2+ pitting pedal edema extending up to the knees NEUROLOGICAL: Unable to assess patient is currently sedated SKIN: No rashes. Assessment and plan Assessment -Acute Congestive heart failure with reduced EF of 35-40%, moderate Mitral and Tricuspid regurgitation -Acute hypoxic/hypercapnic respiratory failure currently intubated on mechanical ventilator with FiO2 of 40%. -Acute kidney injury likely acute tubular necrosis -Acute non-ST elevation microinfarction with elevated troponin of around 2.6 patient is on IV heparin -Paroxysmal Atrial fibrillation with rapid and regular rate currently controlled -Rule out pulmonary embolism -History of CVA with mild residual right-sided weakness -Hyperthyroidism -History of coronary artery disease and prior PCI -Chronic systolic heart failure -Hyperlipidemia -Nicotine cessation counseling was provided -Noncompliance of medications extensive counseling was provided DVT prophylaxis: On IV heparin GI prophylaxis Full Code Plan 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 Dr. Andriy MD I have performed a history and physical examination and medical decision making of this patient, discussed the same with the dictator, and agree with the dictators assessment and plan as written, documented as a scribe. Based on total visit time, I have performed more than 50% of this visit. Objective - Vital Signs Vital signs: Vital Signs Temp 99.4 F 10/19/22 08:00 Pulse 85 10/19/22 08:00 Resp 29 H 10/19/22 08:00 BP 134/104 10/18/22 22:30 Pulse Ox 99 10/19/22 08:00 FiO2 40 10/19/22 08:00 Intake & Output 10/18/22 10/19/22 10/19/22 18:59 06:59 18:59 Intake Total 87.091 795.574 595.503 Output Total 320 125 Balance 87.091 475.574 470.503 Weight 117.934 kg Intake: IV 500 500 NS 500 cc Bolus 500 Sodium Chloride 0.9% 500 500 ml 500 ml @ 999 mls/hr IV .Q31M [facility] Rx#:[id number] Intake, IV Titration 87.091 295.574 95.503 Amount Diltiazem 125 mg In 10.25 Sodium Chloride 0.9% 100 ml @ 5 MG/HR 5 mls/hr IV .Q24H [facility] Rx#:[id number] Heparin Sod,Pork in 0.45% 76.841 173.159 31.591 NaCl 25,000 unit In 0.45 % NaCl 1 250ml.bag @ 8.48 UNITS/KG/HR 10.001 mls/ hr IV .Q24H [facility] Rx#: [id number] propofoL 1,000 mg In 122.415 63.912 Empty Bag 1 bag @ 15 MCG/ KG/MIN 10.614 mls/hr IV . Q9H26M [facility] Rx#:[id number] Output: Urine 320 125 Other: Voiding Method Indwelling Catheter Indwelling Catheter # Voids 1 ABP, PAP, CO, CI - Last Documented Arterial Blood Pressure 93/66 - Labs CBC & Chem 7: 10/19/22 05:40 10/19/22 05:40 Labs: Abnormal Lab Results - Last 24 Hours (Table) 10/18/22 10/18/22 10/18/22 Range/Units 08:35 08:35 08:35 WBC (3.8-10.6) k/uL Neutrophils # (1.3-7.7) k/uL Monocytes # (0-1.0) k/uL PT 12.5 H (9.0-12.0) sec INR 1.2 H (<1.2) D-Dimer 1.22 H (<0.60) mg/L FEU ABG pH (7.35-7.45) ABG pCO2 (35-45) mmHg ABG pO2 (83-108) mmHg ABG HCO3 (21-25) mmol/L ABG O2 Saturation (94-97) % Potassium (3.5-5.1) mmol/L Carbon Dioxide (22-30) mmol/L BUN (9-20) mg/dL Creatinine (0.66-1.25) mg/dL Glucose (74-99) mg/dL POC Glucose (mg/dL) (70-110) mg/dL Plasma Lactic Acid Nik 2.4 H* (0.7-2.0) mmol/L Troponin I 3.190 H* (0.000-0.034) ng/mL HDL Cholesterol (40.00-60.00) mg/dL TSH (0.465-4.680) mIU/L Free T4 (0.78-2.19) ng/dL 10/18/22 10/18/22 10/18/22 Range/Units 11:32 11:32 11:32 WBC (3.8-10.6) k/uL Neutrophils # (1.3-7.7) k/uL Monocytes # (0-1.0) k/uL PT (9.0-12.0) sec INR (<1.2) D-Dimer (<0.60) mg/L FEU ABG pH (7.35-7.45) ABG pCO2 (35-45) mmHg ABG pO2 (83-108) mmHg ABG HCO3 (21-25) mmol/L ABG O2 Saturation (94-97) % Potassium (3.5-5.1) mmol/L Carbon Dioxide (22-30) mmol/L BUN (9-20) mg/dL Creatinine (0.66-1.25) mg/dL Glucose (74-99) mg/dL POC Glucose (mg/dL) (70-110) mg/dL Plasma Lactic Acid Ink 2.5 H* (0.7-2.0) mmol/L Troponin I 2.690 H* (0.000-0.034) ng/mL HDL Cholesterol 28.20 L (40.00-60.00) mg/dL TSH <0.015 L (0.465-4.680) mIU/L Free T4 4.14 H (0.78-2.19) ng/dL 10/18/22 10/18/22 10/18/22 Range/Units 15:27 15:27 18:54 WBC (3.8-10.6) k/uL Neutrophils # (1.3-7.7) k/uL Monocytes # (0-1.0) k/uL PT (9.0-12.0) sec INR (<1.2) D-Dimer (<0.60) mg/L FEU ABG pH (7.35-7.45) ABG pCO2 (35-45) mmHg ABG pO2 (83-108) mmHg ABG HCO3 (21-25) mmol/L ABG O2 Saturation (94-97) % Potassium (3.5-5.1) mmol/L Carbon Dioxide (22-30) mmol/L BUN (9-20) mg/dL Creatinine (0.66-1.25) mg/dL Glucose (74-99) mg/dL POC Glucose (mg/dL) (70-110) mg/dL Plasma Lactic Acid Nik 2.1 H* 3.4 H* (0.7-2.0) mmol/L Troponin I 2.240 H* (0.000-0.034) ng/mL HDL Cholesterol (40.00-60.00) mg/dL TSH (0.465-4.680) mIU/L Free T4 (0.78-2.19) ng/dL 10/18/22 10/18/22 10/18/22 Range/Units 20:49 22:17 22:34 WBC (3.8-10.6) k/uL Neutrophils # (1.3-7.7) k/uL Monocytes # (0-1.0) k/uL PT (9.0-12.0) sec INR (<1.2) D-Dimer (<0.60) mg/L FEU ABG pH 7.18 L* (7.35-7.45) ABG pCO2 47 H (35-45) mmHg ABG pO2 128 H (83-108) mmHg ABG HCO3 18 L (21-25) mmol/L ABG O2 Saturation 97.6 H (94-97) % Potassium 5.2 H (3.5-5.1) mmol/L Carbon Dioxide 16 L (22-30) mmol/L BUN 27 H (9-20) mg/dL Creatinine 1.46 H (0.66-1.25) mg/dL Glucose 170 H (74-99) mg/dL POC Glucose (mg/dL) 119 H (70-110) mg/dL Plasma Lactic Acid Nik (0.7-2.0) mmol/L Troponin I (0.000-0.034) ng/mL HDL Cholesterol (40.00-60.00) mg/dL TSH (0.465-4.680) mIU/L Free T4 (0.78-2.19) ng/dL 10/18/22 10/18/22 10/19/22 Range/Units 22:34 22:34 05:40 WBC 16.3 H (3.8-10.6) k/uL Neutrophils # 13.1 H (1.3-7.7) k/uL Monocytes # 1.1 H (0-1.0) k/uL PT (9.0-12.0) sec INR (<1.2) D-Dimer (<0.60) mg/L FEU ABG pH (7.35-7.45) ABG pCO2 (35-45) mmHg ABG pO2 (83-108) mmHg ABG HCO3 (21-25) mmol/L ABG O2 Saturation (94-97) % Potassium (3.5-5.1) mmol/L Carbon Dioxide (22-30) mmol/L BUN (9-20) mg/dL Creatinine (0.66-1.25) mg/dL Glucose (74-99) mg/dL POC Glucose (mg/dL) (70-110) mg/dL Plasma Lactic Acid Nik 5.1 H* (0.7-2.0) mmol/L Troponin I 2.560 H* (0.000-0.034) ng/mL HDL Cholesterol (40.00-60.00) mg/dL TSH (0.465-4.680) mIU/L Free T4 (0.78-2.19) ng/dL 10/19/22 10/19/22 10/19/22 Range/Units 05:40 05:40 06:11 WBC (3.8-10.6) k/uL Neutrophils # (1.3-7.7) k/uL Monocytes # (0-1.0) k/uL PT 12.8 H (9.0-12.0) sec INR 1.2 H (<1.2) D-Dimer (<0.60) mg/L FEU ABG pH 7.34 L (7.35-7.45) ABG pCO2 (35-45) mmHg ABG pO2 209 H (83-108) mmHg ABG HCO3 (21-25) mmol/L ABG O2 Saturation 100.0 H (94-97) % Potassium 5.2 H (3.5-5.1) mmol/L Carbon Dioxide 21 L (22-30) mmol/L BUN 33 H (9-20) mg/dL Creatinine 2.13 H (0.66-1.25) mg/dL Glucose (74-99) mg/dL POC Glucose (mg/dL) (70-110) mg/dL Plasma Lactic Acid Nik (0.7-2.0) mmol/L Troponin I (0.000-0.034) ng/mL HDL Cholesterol (40.00-60.00) mg/dL TSH (0.465-4.680) mIU/L Free T4 (0.78-2.19) ng/dL Microbiology - Last 24 Hours (Table) 10/18/22 22:10 Sputum Culture - Preliminary Sputum Assessment and Plan Time with Patient: Less than 30
[2022-10-19 17:10] LABS: Calcium 8.2 mg/dL (8.4-10.2)
[2022-10-19 17:29] LABS: Chol/HDL Ratio 5.52 Ratio; LDL Cholesterol,Calculated 84.1 mg/dL (0.0-131.0)
--- NOTE | 2022-10-19 18:12 | XR ---
EXAMINATION TYPE: XR chest 2V DATE OF EXAM: 10/18/2022 8:48 AM COMPARISON: Chest radiographs from 10/19/2022. TECHNIQUE: XR chest 2V Frontal and lateral views of the chest. CLINICAL INDICATION:Male, 57 years old with history of difficulty breathing; FINDINGS: Lungs/Pleura: Diffuse bilateral patchy airspace opacities. No pleural effusion or pneumothorax. Pulmonary vascularity: Unremarkable. Heart/mediastinum: Cardiomediastinal silhouette is enlarged and stable. Musculoskeletal: No acute osseous pathology. IMPRESSION: Similar cardiomegaly with bilateral edema and/or infiltrates again seen.
[2022-10-19] MEDS: ATORVASTATIN 80 MG TAB PO SCH (20:36)
[2022-10-20] MEDS: HEPARIN SODIUM 1,000 UN/ML (10ML VL) IV PRN (02:59)
[2022-10-20] MEDS: IPRATROPIUM-ALBUTEROL 3 ML NEB INHALATION SCH ×5 (03:33→19:32)
[2022-10-20 06:07] LABS: ABG Base Excess -2.5 mmol/L; ABG HCO3 23 mmol/L (21-25); ABG PCO2 39 mmHg (35-45); ABG PH 7.37 (7.35-7.45); ABG PO2 119 mmHg (83-108); ABG TCO2 24 mmol/L (19-24); Allen Test Performed? Yes
[2022-10-20 06:34] LABS: Basophils % (A) 0 %; Eosinophils # (A) 0.1 k/uL (0-0.7); Eosinophils % (A) 1 %; HCT 39.9 % (39.0-53.0); HGB 12.9 gm/dL (13.0-17.5); Lymphocytes # (A) 1.3 k/uL (1.0-4.8); Lymphocytes % (A) 9 %; MCHC 32.3 g/dL (31.0-37.0); MCV 89.8 fL (80.0-100.0); Monocytes # (A) 1.1 k/uL (0-1.0); Monocytes % (A) 8 %; Neutrophils # (A) 11.7 k/uL (1.3-7.7); Neutrophils % (A) 81 %; Platelet Count 300 k/uL (150-450); RBC 4.44 m/uL (4.30-5.90); RDW 14.3 % (11.5-15.5); WBC 14.5 k/uL (3.8-10.6)
[2022-10-20 07:04] LABS: Calcium 8.6 mg/dL (8.4-10.2); Potassium 4.5 mmol/L (3.5-5.1)
--- NOTE | 2022-10-20 07:16 | P.PN ---
Subjective Progress Note Date: 10/20/22 PROGRESS NOTE The patient is a 57 year old male with a known history of CVA history of CAD, congestive heart failure, chronic tobacco use who has not seen a aligning inspector in many years and stopped all his medications and presented yesterday was progressive dyspnea, atrial flutter with rapid ventricle response and evidence of CHF. His troponin on presentation was elevated. During the night he became more tachypneic requiring mechanical ventilation. He is intubated and sedated at this time. He is back in sinus mechanism, he had episode of hypotension that improved. His urine output is low. He underwent an echocardiogram that showed an ejection fraction of 35-40% with severe pulmonary hypertension, moderate mitral with moderate severe tricuspid regurgitation. On the monitor he has ventricular ectopic activity but he continues to be in sinus mechanism. His chest x-ray was consistent with pulmonary congestion. He was acidotic at the time of intubation. His lab data is consistent with hyperthyroidism. October 20: The patient remains intubated and sedated, in sinus mechanism with occasional PVCs, no further atrial fibrillation. Urinary output has been stable on IV Lasix. He is on no vasopressors. He continues to be on IV heparin. He has evidence of acute kidney injury with worsening renal failure. He had an abdominal and bladder ultrasound that showed no significant abnormalities. Medications: Aspirin, Lipitor 80 mg daily, IV heparin. Metoprolol 25 mg twice a day, Lasix 40 mg IV every 12 hours PHYSICAL EXAMINATION: Blood pressure 112/80 heart rate 90, intubated and sedated LUNGS: Clear to auscultation anteriorly HEART: Regular rate and rhythm, S1, S2. No S3. systolic murmur at the base ABDOMEN: Soft, positive bowel sounds, no organomegaly EXTREMETIES: Trace to 1+ edema LAB: Hemoglobin 12.9, white blood cell 14.5. PH 7.37. Potassium 4.5, BUN 41, creatinine 2.67. Chest x-ray with some improvement in the congestion. IMPRESSION: 1. Acute respiratory failure with evidence of CHF and impaired systolic function 2. Non-STEMI, the troponin is trending downward, the peak is not known 3. Severe pulmonary hypertension with significant mitral and tricuspid regurg itation of unknown duration 4. Paroxysmal atrial flutter, back in sinus mechanism 5. History of CVA 6. History of CAD and prior stenting 7. Chronic tobacco use 8. Noncompliance 9. Worsening renal failure with acute renal injury PLAN: 1. Continue IV heparin 2. Continue IV Lasix and follow renal functions 3. Wean and extubate for pulmonary 4. Depending on his progress further recommendations will be made, prognosis remains guarded. Objective - Vital Signs Vital signs: Vital Signs Temp 98.9 F 10/20/22 04:00 Pulse 102 H 10/20/22 06:30 Resp 27 H 10/20/22 07:00 BP 112/88 10/20/22 07:00 Pulse Ox 98 10/20/22 07:00 FiO2 40 10/20/22 04:00 Intake & Output 10/19/22 10/20/22 10/20/22 18:59 06:59 18:59 Intake Total 1112.927 565.865 10 Output Total 1250 1255 100 Balance -137.073 -689.135 -90 Weight 107 kg Intake: IV 580 120 10 0.9 80 120 10 Sodium Chloride 0.9% 500 500 ml 500 ml @ 999 mls/hr IV .Q31M [facility] Rx#:[id number] Intake, IV Titration 532.927 445.865 Amount Heparin Sod,Pork in 0.45% 193.538 180.852 NaCl 25,000 unit In 0.45 % NaCl 1 250ml.bag @ 8.48 UNITS/KG/HR 10.001 mls/ hr IV .Q24H [facility] Rx#: [id number] fentaNYL (PF). 1,000 mcg 74.794 In Sodium Chloride 0.9% 80 ml @ 0.5 MCG/KG/HR 5. 897 mls/hr IV .[id number] [facility] Rx#:[id number] propofoL 1,000 mg In 339.389 190.219 Empty Bag 1 bag @ 15 MCG/ KG/MIN 10.614 mls/hr IV . Q9H26M [facility] Rx#:[id number] Output: Urine 1250 1255 100 Other: Voiding Method Indwelling Catheter Indwelling Catheter ABP, PAP, CO, CI - Last Documented Arterial Blood Pressure 76/71 - Labs CBC & Chem 7: 10/20/22 05:51 10/20/22 05:51 Labs: Abnormal Lab Results - Last 24 Hours (Table) 10/19/22 10/19/22 10/19/22 Range/Units 05:40 16:36 16:36 WBC (3.8-10.6) k/uL Hgb (13.0-17.5) gm/dL Neutrophils # (1.3-7.7) k/uL Monocytes # (0-1.0) k/uL APTT 42.3 H (22.0-30.0) sec ABG pO2 (83-108) mmHg ABG O2 Saturation (94-97) % Chloride 109 H (98-107) mmol/L Carbon Dioxide 19 L (22-30) mmol/L BUN 40 H (9-20) mg/dL Creatinine 2.42 H (0.66-1.25) mg/dL Glucose (74-99) mg/dL Calcium 8.2 L (8.4-10.2) mg/dL HDL Cholesterol 24.10 L (40.00-60.00) mg/dL 10/20/22 10/20/22 10/20/22 Range/Units 01:02 05:51 05:51 WBC 14.5 H (3.8-10.6) k/uL Hgb 12.9 L (13.0-17.5) gm/dL Neutrophils # 11.7 H (1.3-7.7) k/uL Monocytes # 1.1 H (0-1.0) k/uL APTT 38.9 H (22.0-30.0) sec ABG pO2 (83-108) mmHg ABG O2 Saturation (94-97) % Chloride (98-107) mmol/L Carbon Dioxide (22-30) mmol/L BUN 41 H (9-20) mg/dL Creatinine 2.67 H (0.66-1.25) mg/dL Glucose 107 H (74-99) mg/dL Calcium (8.4-10.2) mg/dL HDL Cholesterol (40.00-60.00) mg/dL 10/20/22 10/20/22 Range/Units 05:51 06:15 WBC (3.8-10.6) k/uL Hgb (13.0-17.5) gm/dL Neutrophils # (1.3-7.7) k/uL Monocytes # (0-1.0) k/uL APTT 68.3 H (22.0-30.0) sec ABG pO2 119 H (83-108) mmHg ABG O2 Saturation 99.0 H (94-97) % Chloride (98-107) mmol/L Carbon Dioxide (22-30) mmol/L BUN (9-20) mg/dL Creatinine (0.66-1.25) mg/dL Glucose (74-99) mg/dL Calcium (8.4-10.2) mg/dL HDL Cholesterol (40.00-60.00) mg/dL Microbiology - Last 24 Hours (Table) 10/18/22 22:10 Sputum Culture - Preliminary Sputum
[2022-10-20] MEDS: METOPROLOL TARTRATE 25 MG TAB PO SCH ×2 (07:59→20:17)
[2022-10-20] MEDS: FUROSEMIDE 10 MG/ML 4 ML VIAL IV SCH (07:59)
[2022-10-20] MEDS: ASPIRIN 81 MG PO SCH (07:59)
[2022-10-20] MEDS: methIMAzole 5 MG TAB PO SCH ×2 (07:59→20:39)
[2022-10-20] MEDS: CHLORHEXIDINE GLUCONATE 15 ML CUP MUCOUS MEM SCH ×2 (07:59→20:38)
[2022-10-20] MEDS: PANTOPRAZOLE 40 MG/10 ML VIAL IVP SCH (07:59)
--- NOTE | 2022-10-20 08:10 | P.PN ---
Subjective Progress Note Date: 10/20/22 On today's evaluation of 2022, the patient is being seen in follow-up. The patient was intubated yesterday because of an acute hypoxic respiratory failure, acute non-ST segment elevation myocardial infarction. The patient was also in acute pulmonary edema and he also developed an acute kidney injury. Echocardiogram was done and the patient showed moderate impairment of LV function with an ejection fraction of 35-40% and the patient also had moderate degree of mitral regurgitation. His troponins peaked at 3.19. The patient is currently sedated on propofol running at 50 mcg/kg/m. He is, comfortable and symptoms of mechanical ventilator. His assist control mode at a rate of 28, tidal volume of 500, FiO2 40% with a PEEP of 5. The blood gas from today shows improvement in acid base status. The pH is at 7.34 andPCO2 is at 41 with a pO2 of 219. The patient is producing urine output in the order of 20-30 mL an hour. The discomfort 16.3 with hemoglobin 13.5 and a platelet count of 3:30. BUN is at 33 with a creatinine of 2.1 and the patient has developed an acute kidney injury. His baseline creatinine at time of admission was at 1.46. His potassium levels at 5.2. The patient remains on aspirin. The patient is on IV heparin. The patient was started on beta blockers. Blood pressure is soft and the patient has not required any pressors. The patient's cardiac rhythm is sinus and the patient is having frequent PVCs. Otherwise, he is afebrile. No other significant events overnight. His evaluation of 10/20/2022, the patient is being seen for a follow-up. The patient remains intubated on mechanical ventilator. This morning, the patient is on propofol running at 50 mcg/kg/m. Bunker was also added at 0.5 mcg/kg/h to maintain synchrony with a mechanical ventilator. He is on assist control mode and is quite comfortable at this point. He is on a rate of 28, tidal v olume of 500, FiO2 of 40% and a PEEP of 5. No significant orotracheal secretions. A follow-up chest x-ray from this morning shows cardiomegaly and there is still evidence of pulmonary vascular congestion/edema. Orotracheal tube is in a good location. The patient is afebrile. The patient is hemo dynamically stable. His cardiac rhythm is currently sinus and the patient has converted into normal sinus rhythm. The patient continues to be diabetes with Lasix. The patient is on Lasix 40 mg IV every 12 hours. They net fluid balance over the past 24 hours is -826 mL. The blood gas from today shows a pH of 7.37 with a pCO2 of 39 and pO2 of 119. This was on FiO2 of 40%. The patient's LB cc count is at 14.5 with a hemoglobin 12.9 and a platelet count of 300. BUN is 41 with a creatinine of 2.6 and a sodium level is at 139. Ultrasound the kidney was completed yesterday and showed no evidence of any hydronephrosis. From the cardiac standpoint, the patient has cardiomyopathy. The patient has an ejection fraction of around 35-40% with moderate degree of mitral regurgitation. His troponin peaked at 3.1. He remains on IV heparin with a therapeutic PTT. Serum bicarb is currently at 22. Sputum cultures are still pending for now. He is on aspirin. Is on IV heparin. Is also on metoprolol 25 mg by mouth twice a day. Objective - Vital Signs Vital signs: Vital Signs Temp 98.9 F 10/20/22 04:00 Pulse 102 H 10/20/22 06:30 Resp 27 H 10/20/22 07:00 BP 112/88 10/20/22 07:00 Pulse Ox 98 10/20/22 07:00 FiO2 40 10/20/22 07:32 Intake & Output 10/19/22 10/20/22 10/20/22 18:59 06:59 18:59 Intake Total 1112.927 565.865 10 Output Total 1250 1255 100 Balance -137.073 -689.135 -90 Weight 107 kg Intake: IV 580 120 10 0.9 80 120 10 Sodium Chloride 0.9% 500 500 ml 500 ml @ 999 mls/hr IV .Q31M [facility] Rx#:[id number] Intake, IV Titration 532.927 445.865 Amount Heparin Sod,Pork in 0.45% 193.538 180.852 NaCl 25,000 unit In 0.45 % NaCl 1 250ml.bag @ 8.48 UNITS/KG/HR 10.001 mls/ hr IV .Q24H [facility] Rx#: [id number] fentaNYL (PF). 1,000 mcg 74.794 In Sodium Chloride 0.9% 80 ml @ 0.5 MCG/KG/HR 5. 897 mls/hr IV .[id number] [facility] Rx#:[id number] propofoL 1,000 mg In 339.389 190.219 Empty Bag 1 bag @ 15 MCG/ KG/MIN 10.614 mls/hr IV . Q9H26M [facility] Rx#:[id number] Output: Urine 1250 1255 100 Other: Voiding Method Indwelling Catheter Indwelling Catheter ABP, PAP, CO, CI - Last Documented Arterial Blood Pressure 76/71 - Exam GENERAL EXAM: Sedated 57-year-old white male currently synchronous with mechanical ventilator HEAD: Normocephalic and atraumatic EYES: Normal reaction of pupils, equal size. NOSE: Clear with pink turbinates. THROAT: No erythema or exudates. NECK: No obvious goiter, thyroid nodules, masses. CHEST: No chest wall deformity. LUNGS: Equal air entry with coarse bibasilar crackles. no wheeze, rhonchi or dullness. Intubated to the mechanical ventilator. CVS: S1 and S2 normal with no audible murmur, regular rhythm. No extra heart sounds ABDOMEN: Obese abdomen. No hepatosplenomegaly, active bowel sounds, no guarding or rigidity. SPINE: No scoliosis or deformity SKIN: No rashes. Diaphoretic CENTRAL NERVOUS SYSTEM: No focal deficits, tone is normal in all 4 extremities. EXTREMITIES: Bilateral lower extremity 2+ edema. No clubbing, or cyanosis. Peripheral pulses are intact. - Labs CBC & Chem 7: 10/20/22 05:51 10/20/22 05:51 Labs: Abnormal Lab Results - Last 24 Hours (Table) 10/19/22 10/19/22 10/19/22 Range/Units 05:40 16:36 16:36 WBC (3.8-10.6) k/uL Hgb (13.0-17.5) gm/dL Neutrophils # (1.3-7.7) k/uL Monocytes # (0-1.0) k/uL APTT 42.3 H (22.0-30.0) sec ABG pO2 (83-108) mmHg ABG O2 Saturation (94-97) % Chloride 109 H (98-107) mmol/L Carbon Dioxide 19 L (22-30) mmol/L BUN 40 H (9-20) mg/dL Creatinine 2.42 H (0.66-1.25) mg/dL Glucose (74-99) mg/dL Calcium 8.2 L (8.4-10.2) mg/dL HDL Cholesterol 24.10 L (40.00-60.00) mg/dL 10/20/22 10/20/22 10/20/22 Range/Units 01:02 05:51 05:51 WBC 14.5 H (3.8-10.6) k/uL Hgb 12.9 L (13.0-17.5) gm/dL Neutrophils # 11.7 H (1.3-7.7) k/uL Monocytes # 1.1 H (0-1.0) k/uL APTT 38.9 H (22.0-30.0) sec ABG pO2 (83-108) mmHg ABG O2 Saturation (94-97) % Chloride (98-107) mmol/L Carbon Dioxide (22-30) mmol/L BUN 41 H (9-20) mg/dL Creatinine 2.67 H (0.66-1.25) mg/dL Glucose 107 H (74-99) mg/dL Calcium (8.4-10.2) mg/dL HDL Cholesterol (40.00-60.00) mg/dL 10/20/22 10/20/22 Range/Units 05:51 06:15 WBC (3.8-10.6) k/uL Hgb (13.0-17.5) gm/dL Neutrophils # (1.3-7.7) k/uL Monocytes # (0-1.0) k/uL APTT 68.3 H (22.0-30.0) sec ABG pO2 119 H (83-108) mmHg ABG O2 Saturation 99.0 H (94-97) % Chloride (98-107) mmol/L Carbon Dioxide (22-30) mmol/L BUN (9-20) mg/dL Creatinine (0.66-1.25) mg/dL Glucose (74-99) mg/dL Calcium (8.4-10.2) mg/dL HDL Cholesterol (40.00-60.00) mg/dL Microbiology - Last 24 Hours (Table) 10/18/22 22:10 Gram Stain - Preliminary Sputum Sputum Culture - Preliminary Assessment and Plan Plan: Acute exacerbation of chronic systolic congestive heart failure secondary to above. Most recent echocardiogram shows reduced ejection fraction of 35-40%, moderate tricuspid regurgitation, and moderate mitral regurgitation Acute hypoxemic and hypercapnic respiratory failure secondary to above, currently intubated on mechanical ventilator Lactic acidosis, improved Acute high anion gap metabolic acidosis related to above, improved Acute kidney injury, creatinine is elevated and on the rise. Today's creatinine level is at 2.6 and the patient continues to be on IV Lasix 40 mg every 12 hours. Ultrasound the kidneys shows no evidence of any hydronephrosis. Atrial fibrillation with rapid ventricular rate. Improved, currently in normal sinus rhythm Hyperthyroidism, TSH undetectable and free T4 4.14, and the patient is chemically hyperthyroid and the patient remains on methimazole. Free T4 is elevated at 4.1. This could have potentially contributed to his age of fibrillation. coronary artery disease with a remote history of stent Current nicotine dependence History of CVA with right-sided hemiparesis Hypertension Hyperlipidemia Medication noncompliance morbid obesity with BMI of 37 Plan Continue vent support, no ventilator changes from today Chest x-ray from today was noted, continues to have some degree of pulmonary edema Continue Lasix 40 mg IV every 12 hours Ultrasound the kidneys showed no evidence of any hydronephrosis Continue aspirin and IV heparin Allow beta blockers as long as the patient's blood pressure tolerates, currently on metoprolol 25 mg by mouth twice a day Keep the Wang catheter in place Monitor the fluid balance and electrolytes Give the patient has sedation holiday and assess his underlying mental status and weaning parameters. Assess his candidacy for further weaning. If he failed his weaning parameters and weaning trial, the patient will be started on enteral feeding for nutritional support. Consult nephrology regarding the acute kidney injury Condition is obvious significant exam will continue to follow make further recommendations. Associate Store Leader on the case. Critical care evaluation, more than 30 minutes. Time with Patient: Greater than 30
--- NOTE | 2022-10-20 09:01 | XR ---
EXAMINATION TYPE: XR chest 1V portable DATE OF EXAM: 10/20/2022 COMPARISON: 10/19/2022 INDICATION: Difficulty breathing, intubated TECHNIQUE: Single frontal view of the chest is obtained. FINDINGS: The heart size is mild prominence. The pulmonary vasculature is normal. Mild bibasilar infiltrate may be present. Correlate for subsegmental atelectasis. Endotracheal tube has its above the derik. Nasogastric tube and left upper quadrant of the abdomen. IMPRESSION: 1. Question of mild subsegmental atelectasis bilateral lung bases. 2. Mild cardiomegaly. 3. Lines and catheters
[2022-10-20 09:21] LABS: Appearance,Urine Cloudy (Clear); Bacteria,Urine Few /hpf; Bilirubin,Urine Negative (Negative); Blood,Urine Moderate (Negative); Color,Urine Light Yellow; Glucose,Urine (UA) Negative (Negative); Ketones,Urine Negative (Negative); Leukocyte Esterase,Urine Large (Negative); Mucus,Urine Rare /hpf; Nitrite,Urine Negative (Negative); Protein,Urine Negative (Negative); RBC,Urine 13 /hpf (0-5); Specific Gravity,Urine 1.006 (1.001-1.035); Uric Acid Crystals,Urine Rare /hpf; Urobilinogen,Urine <2.0 mg/dL (<2.0); WBC,Urine 26 /hpf (0-5)
[2022-10-20] MEDS: HEPARIN SOD,PORK IN 0.45% NACL 25,000 UNIT in 0.45% NACL 1 250ML.BAG IV SCH ×2 (09:24→20:39)
[2022-10-20] MEDS ORDERED: DEXTROSE 5% IN WATER 100 ML with AMIODARONE 150 MG IV ONE (09:25)
[2022-10-20] MEDS ORDERED: METOPROLOL TARTRATE 5 MG/5 ML VIAL IVP STA (09:25)
[2022-10-20] MEDS ORDERED: AMIODARONE 360 MG in DEXTROSE 5% IN WATER 200 ML IV ONE ×2 (09:25)
[2022-10-20] MEDS ORDERED: CISATRACURIUM 2 MG/ML 5 ML VIAL IV ONE (10:12)
[2022-10-20] MEDS ORDERED: PHENYLEPHRINE 1 MG in SODIUM CHLORIDE 0.9% 100 ML IV ONE (10:14)
[2022-10-20] MEDS ORDERED: PHENYLEPHRINE 40 MG in SODIUM CHLORIDE 0.9% 250 ML IV SCH ×2 (10:30→11:41)
--- NOTE | 2022-10-20 10:34 | P.PCN ---
Date of Procedure: 10/20/22 Operative Findings: Preoperative Diagnosis: Acute hypoxic respiratory failure, shock Postoperative Diagnosis: Same Procedure(s) Performed: Central line, arterial line Anesthesia: local Surgeon: Sim Purdy Estimated Blood Loss (ml): 0 Pathology: other Condition: critical Disposition: ICU Operative Findings: Indication: Hemodynamic monitoring/Intravenous access. A time-out was completed verifying correct patient, procedure, site, positioning, and implant(s) or special equipment if applicable. The patient was placed in a dependent position appropriate for central line placement based on the vein to be cannulated. The patients left chest was prepped and draped in sterile fashion. 1% Lidocaine was used to anesthetize the surrounding skin area. A triple lumen 9F Cordis catheter was introduced into the left subclavian vein using Seldinger technique. The catheter was threaded smoothly over the guide wire and appropriate blood return was obtained. Each lumen of the catheter was evacuated of air and flushed with sterile saline. The catheter was then sutured in place to the skin and a sterile dressing applied. Perfusion to the extremity distal to the point of catheter insertion was checked and found to be adequate. The patient tolerated the procedure well and there were no complications. Indication: Hemodynamic monitoring. A time-out was completed verifying correct patient, procedure, site, positioning, and implant(s) or special equipment if applicable. Allens test was performed to ensure adequate perfusion. The patients right groin was prepped and draped in sterile fashion. 1% Lidocaine was used to anesthetize the area. An 18G Arrow arterial line was introduced into the right femoral artery. The catheter was threaded over the guide wire and the needle was removed with appropriate pulsatile blood return. Blood loss was minimal. The catheter was then sutured in place to the skin and a sterile dressing applied. Perfusion to the extremity distal to the point of catheter insertion was checked and found to be adequate. The patient tolerated the procedure well and there were no complications.
--- NOTE | 2022-10-20 10:51 | P.NPCON ---
History of Present Illness - Reason for Consult acute renal failure - History of Present Illness Reason for consultation: Acute kidney injury History of present illness: Patient is a 57-year-old male seen in renal consultation for acute kidney injury. Patient's creatinine on admission yesterday was 0.96 and is up to 2.67 today. Patient presented to the hospital due to worsening shortness of breath over the course of 1 week. Patient does have history of A. fib as well as coronary artery disease and CVA with right-sided weakness. Patient was admitted to telemetry floor due to worsening shortness of breath and pulmonary edema he was subsequently intubated. Patient's ejection fraction was noted to be 35-40% with moderate tricuspid and mitral regurgitation. Patient has been going in and out of A. fib with RVR. He was initially on Cardizem drip and that was stopped due to hypotension. This morning he was started on amiodarone drip. Blood pressures on the lower side and Levophed may need to be started as well. He's currently receiving IV Lasix and is nonoliguric. He did undergo CT angiogram in 10/18/2022 which showed pleural effusions. No evidence of PE. Patient is currently intubated. Tube feeds be started today. Ultrasound showed no evidence of hydronephrosis. Vital signs - in A. fib. Blood pressure low. General: Resting in bed. HEENT: Intubated. LUNGS: Scattered rhonchi. HEART: Irregular rate and rhythm. ABDOMEN: Soft, obese. EXTREMITITES: 1+ edema right lower extremity. Past Medical History Past Medical History: Coronary Artery Disease (CAD), Chest Pain / Angina, Heart Failure, CVA/TIA, Hypertension, Myocardial Infarction (NM) Last Myocardial Infarction Date:: 12/08/1999 History of Any Multi-Drug Resistant Organisms: None Reported Past Surgical History: Heart Catheterization With Stent Additional Past Surgical History / Comment(s): Cardiac stent Past Anesthesia/Blood Transfusion Reactions: No Reported Reaction Date of Last Stent Placement:: 12/08/1999 Past Psychological History: No Psychological Hx Reported Smoking Status: Current every day smoker Past Alcohol Use History: None Reported Past Drug Use History: Marijuana - Past Family History Father Family Medical History: No Reported History Mother Family Medical History: Unable to Obtain Medications and Allergies Home Medications Medication Instructions Recorded Confirmed Type No Known Home Medications 10/18/22 10/18/22 History Allergies Allergy/AdvReac Type Severity Reaction Status Date / Time No Known Allergies Allergy Verified 10/18/22 08:55 Physical Exam Vitals: Vital Signs Temp Pulse Resp BP Pulse Ox FiO2 10/20/22 10:05 149 H 28 H 68/51 98 10/20/22 10:00 147 H 28 H 83/54 97 10/20/22 09:55 147 H 28 H 86/69 97 10/20/22 09:50 147 H 28 H 138/78 96 10/20/22 09:45 152 H 28 H 122/77 96 10/20/22 09:40 62 28 H 107/83 96 10/20/22 09:35 165 H 28 H 72/23 95 10/20/22 09:30 179 H 28 H 102/48 95 10/20/22 09:25 179 H 28 H 107/46 96 10/20/22 09:20 179 H 28 H 90/49 96 10/20/22 09:15 181 H 28 H 102/83 96 10/20/22 09:10 92 28 H 102/83 97 10/20/22 09:00 91 29 H 124/88 96 10/20/22 08:55 100 10/20/22 08:30 96 22 127/84 97 10/20/22 08:20 100 10/20/22 08:00 99.5 F 93 29 H 108/71 98 40 10/20/22 07:32 40 10/20/22 07:30 94 22 109/86 98 10/20/22 07:00 27 H 112/88 98 10/20/22 06:30 102 H 28 H 100/82 98 10/20/22 06:00 92 28 H 108/74 97 10/20/22 05:30 95 28 H 108/87 96 10/20/22 05:00 98 29 H 113/80 97 10/20/22 04:30 98 28 H 107/59 98 10/20/22 04:00 98.9 F 91 22 107/72 98 40 10/20/22 03:48 94 10/20/22 03:36 40 10/20/22 03:33 94 10/20/22 03:30 93 27 H 98 10/20/22 03:00 92 27 H 118/68 97 10/20/22 02:30 92 28 H 114/67 98 04/19/23 02:00 93 28 H 98 10/20/22 01:30 90 30 H 110/88 97 10/20/22 01:00 92 22 105/76 97 10/20/22 00:30 92 28 H 103/78 97 10/20/22 00:26 92 28 H 103/78 97 10/20/22 00:00 93 26 H 105/77 97 40 10/19/22 23:54 90 10/19/22 23:41 92 10/19/22 23:40 40 10/19/22 23:30 93 26 H 108/83 97 10/19/22 23:00 95 26 H 106/82 97 10/19/22 22:30 91 26 H 93/74 97 10/19/22 22:00 96 28 H 112/76 97 10/19/22 21:30 102 H 28 H 106/94 97 10/19/22 21:00 93 27 H 101/74 97 10/19/22 20:30 98 28 H 112/98 97 10/19/22 20:00 99.8 F H 101 H 28 H 108/71 97 40 10/19/22 19:56 98 10/19/22 19:40 40 10/19/22 19:38 93 10/19/22 19:30 89 30 H 95/77 97 10/19/22 19:00 93 29 H 102/78 97 10/19/22 18:30 91 28 H 97 10/19/22 18:00 96 28 H 100/82 97 10/19/22 17:47 91 10/19/22 17:40 40 10/19/22 17:38 92 10/19/22 17:30 92 28 H 90/74 98 10/19/22 17:00 89 28 H 93/75 97 10/19/22 16:30 89 28 H 97/66 97 10/19/22 16:00 99.3 F 85 27 H 94/80 97 40 10/19/22 15:30 86 28 H 97/72 97 10/19/22 15:28 40 10/19/22 15:22 40 10/19/22 15:00 81 28 H 97 10/19/22 14:30 85 37 H 97 10/19/22 14:00 87 28 H 97 10/19/22 13:30 88 28 H 97 10/19/22 13:00 89 28 H 98 10/19/22 12:30 89 28 H 98 10/19/22 12:06 90 10/19/22 12:00 99.9 F H 90 30 H 98 40 10/19/22 11:56 91 10/19/22 11:52 40 10/19/22 11:48 40 10/19/22 11:45 40 10/19/22 11:30 89 29 H 97 10/19/22 11:00 90 29 H 97 Intake and Output 10/19/22 10/20/22 10/20/22 22:59 06:59 14:59 Intake Total 488.628 479.184 165.61 Output Total 400 1080 1080 Balance 88.628 -600.816 -914.39 Intake: IV 80 80 40 0.9 80 80 40 Intake, IV Titration 408.628 399.184 125.61 Amount Heparin Sod,Pork in 0.45% 218.409 124.39 125.61 NaCl 25,000 unit In 0.45 % NaCl 1 250ml.bag @ 8.48 UNITS/KG/HR 10.001 mls/ hr IV .Q24H [facility] Rx#: [id number] fentaNYL (PF). 1,000 mcg 74.794 In Sodium Chloride 0.9% 80 ml @ 0.5 MCG/KG/HR 5. 897 mls/hr IV .[id number] [facility] Rx#:[id number] propofoL 1,000 mg In 190.219 200 Empty Bag 1 bag @ 15 MCG/ KG/MIN 10.614 mls/hr IV . Q9H26M [facility] Rx#:[id number] Output: Gastric Drainage 300 Urine 400 1080 780 Other: Voiding Method Indwelling Catheter Indwelling Catheter Indwelling Catheter Weight 107 kg ABP, PAP, CO, CI - Last 8 Hours Arterial Blood Pressure 76/71 Arterial Blood Pressure 71/66 Results - Lab Results Most recent lab results ABG pH 7.37 (7.35-7.45) 10/20/22 06:15 ABG pCO2 39 mmHg (35-45) 10/20/22 06:15 ABG pO2 119 mmHg (83-108) H 10/20/22 06:15 ABG HCO3 23 mmol/L (21-25) 10/20/22 06:15 ABG O2 Saturation 99.0 % (94-97) H 10/20/22 06:15 Calcium 8.6 mg/dL (8.4-10.2) 10/20/22 05:51 Magnesium 2.0 mg/dL (1.6-2.3) 10/19/22 16:36 10/20/22 05:51 10/20/22 05:51 Assessment and Plan Plan: Assessment: 1. Acute kidney injury secondary to hemodynamic ATN as well as component of contrast-induced acute kidney injury. Patient received IV contrast on 3. Creatinine 0.96 on admission and is 2.67 today. No hydronephrosis noted on kidney. No proteinuria on UA. 2. Metabolic acidosis secondary to acute kidney injury. Improved. 3. Volume overload. 4. Acute hypoxic respiratory failure. 5. Acute on chronic systolic CHF with ejection fraction of 35-40% with moderate mitral and tricuspid regurgitation. 6. A. fib with RVR maintained on amiodarone drip. Plan: Maintain IV Lasix for now. Initiate vasopressors if needed to maintain adequate map. Avoid nephrotoxins. Continue to monitor renal function and urine output. Thank you for the consultation. I will continue to follow the patient with you during his hospital stay.
--- NOTE | 2022-10-20 10:56 | XR ---
EXAMINATION TYPE: XR chest 1V portable DATE OF EXAM: 10/20/2022 10:42 AM COMPARISON: Chest radiographs from 10/20/2022 TECHNIQUE: XR chest 1V portable Portable AP radiograph of the chest. CLINICAL INDICATION:Male, 57 years old with history of central line placement; FINDINGS: Lungs/Pleura: No pleural effusion or pneumothorax. Right basilar patchy airspace opacities. Pulmonary vascularity: Unremarkable. Heart/mediastinum: Cardiomediastinal silhouette is enlarged and stable. Musculoskeletal: No acute osseous pathology. Other findings: None Lines/Tubes: Endotracheal tube with distal tip 8 cm above the derik Nasogastric tube with its distal tip and side-port projecting under the diaphragm. Left subclavian central venous catheter with distal tip at the mid SVC. IMPRESSION: 1. Interval placement of left subclavian central venous catheter with distal tip at the mid SVC. No p neumothorax. 2. Stable endotracheal tube and NG tube. 3. Right basilar patchy airspace opacity which may represent atelectasis versus infiltrate. 4. Persistent cardiomegaly.
[2022-10-20 12:02] LABS: Amphetamine Screen,Urine Not Detected (NotDetected); Barbiturate Screen,Urine Not Detected (NotDetected); Benzodiazepines Screen,Urine Not Detected (NotDetected); Cocaine Screen,Urine Not Detected (NotDetected); Methadone Screen, Urine Not Detected (NotDetected); Opiate Screen,Urine Not Detected (NotDetected); Oxycodone Screen, Urine Not Detected (NotDetected); Phencyclidine Screen,Urine Not Detected (NotDetected); Tricyclic Antidepressant,Urine Not Detected (NotDetected); Urn Cannabinoid Scrn Not Detected (NotDetected)
[2022-10-20 13:20] VITALS: BMI 33.8
--- NOTE | 2022-10-20 14:01 | P.PN ---
Subjective Progress Note Date: 10/20/22 57-year-old male with a missed known history of coronary artery disease with stents in the past and failure came in with compensative shortness of breath and orthopnea paroxysmal nocturnal dyspnea elevated troponin and found to be in heart failure with bilateral pleural effusions and elevated proBNP of 11,000. Patient did have orthopnea and proximal lateral dyspnea increased of bilateral pedal edema. Patient has stopped taking his medications about 2 months ago including antiplatelet medications and diuretics and continues to smoke a pack of cigarettes per day patient does have elevated d-dimer because of which CT of the chest was opted which did not show any pulmonary embolism. Patient is also found to be in atrial fibrillation with rapid ventricular rate and was started on IV heparin. Patient is supposed to be on Coumadin as an outpatient. 10/19/2022 Patient evaluated today in intensive care unit, patient is currently intubated and sedated. Required intubation around 2129 last night secondary to increased shortness of breath and respiratory distress. Patient was also noted to be diap horetic. Chest xray this morning showing cardiomegaly with bilateral edema/infiltrates. Findings are slightly improved. Creatinine is increased up to 2.13 today, patient has been maintained on IV lasix Q12. Indwelling catheter in place, abdomen/bladder ultrasound completed today showing no hydronephrosis or obstructive uropathy. Lactic acid is down to 1.5. TSH found to be <0.015 and Free T4 of 4.14. 10/20/2022 Patient is evaluated in the intensive care unit, remains sedated and intubated on mechanical ventilator with FiO2 of 40%. Patient is tachycardic today heart rate as high as 190s and currently 140s at the time of assessment. He has been started on IV amiodarone infusion. Maintains on IV lasix Q12 hours with urine output of 2.9 Liters overnight. Chest xray this morning showing questionable mild subsegmental atelectasis bilateral lung bases, with mild cardiomegaly. Patient remains on IV heparin, sedated with propofol, on fentanyl gtt. Patients son and son's mother are updated on patient in the waiting room today. There is report of possible recent cocaine use, patient does have history of meth abuse in the past. Labs today are showing white count of 14.5, sodium 139, potassium 4.5, BUN 41, creatinine 2.67, glucose of 107. Urinalysis done showing moderate blood, large luekocyte esterase, few bacteria, and uric acid crystals. Urine drug toxicology is negative. Nephrology consult requested. Unable to complete review of systems patient is currently intubated and sedated PHYSICAL EXAMINATION: GENERAL: The patient is sedated, not in any acute distress. Well developed, well nourished. HEENT: Pupils are round and equally reacting to light. EOMI. No scleral icterus. No conjunctival pallor. Normocephalic, atraumatic. No pharyngeal erythema. No thyromegaly. CARDIOVASCULAR: S1 and S2 present. No murmurs, rubs, or gallops. PULMONARY: Bibasilar crackles ABDOMEN: Soft, nontender, nondistended, normoactive bowel sounds. No palpable organomegaly. MUSCULOSKELETAL: No joint swelling or deformity. EXTREMITIES: No cyanosis, clubbing, patient does have 2+ pitting pedal edema extending up to the knees NEUROLOGICAL: Unable to assess patient is currently sedated SKIN: No rashes. Assessment and plan Assessment -Acute Congestive heart failure with reduced EF of 35-40%, moderate Mitral and Tricuspid regurgitation -Acute hypoxic/hypercapnic respiratory failure currently intubated on mechanical ventilator with FiO2 of 40%. -Acute kidney injury likely acute tubular necrosis/contrast induced nephropathy. 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 Dr. Andriy MD I have performed a history and physical examination and medical decision making of this patient, discussed the same with the dictator, and agree with the dictators assessment and plan as written, documented as a scribe. Based on total visit time, I have performed more than 50% of this visit. Objective - Vital Signs Vital signs: Vital Signs Temp 99.5 F 10/20/22 08:00 Pulse 100 10/20/22 08:20 Resp 29 H 10/20/22 08:00 BP 108/71 10/20/22 08:00 Pulse Ox 98 10/20/22 08:00 FiO2 40 10/20/22 08:00 Intake & Output 10/19/22 10/20/22 10/20/22 18:59 06:59 18:59 Intake Total 1112.927 565.865 20 Output Total 1250 1255 575 Balance -137.073 -689.135 -555 Weight 107 kg Intake: IV 580 120 20 0.9 80 120 20 Sodium Chloride 0.9% 500 500 ml 500 ml @ 999 mls/hr IV .Q31M [facility] Rx#:[id number] Intake, IV Titration 532.927 445.865 Amount Heparin Sod,Pork in 0.45% 193.538 180.852 NaCl 25,000 unit In 0.45 % NaCl 1 250ml.bag @ 8.48 UNITS/KG/HR 10.001 mls/ hr IV .Q24H [facility] Rx#: [id number] fentaNYL (PF). 1,000 mcg 74.794 In Sodium Chloride 0.9% 80 ml @ 0.5 MCG/KG/HR 5. 897 mls/hr IV .[id number] [facility] Rx#:[id number] propofoL 1,000 mg In 339.389 190.219 Empty Bag 1 bag @ 15 MCG/ KG/MIN 10.614 mls/hr IV . Q9H26M [facility] Rx#:[id number] Output: Gastric Drainage 300 Urine 1250 1255 275 Other: Voiding Method Indwelling Catheter Indwelling Catheter ABP, PAP, CO, CI - Last Documented Arterial Blood Pressure 76/71 - Labs CBC & Chem 7: 10/20/22 05:51 10/20/22 05:51 Labs: Abnormal Lab Results - Last 24 Hours (Table) 10/19/22 10/19/22 10/19/22 Range/Units 05:40 16:36 16:36 WBC (3.8-10.6) k/uL Hgb (13.0-17.5) gm/dL Neutrophils # (1.3-7.7) k/uL Monocytes # (0-1.0) k/uL APTT 42.3 H (22.0-30.0) sec ABG pO2 (83-108) mmHg ABG O2 Saturation (94-97) % Chloride 109 H (98-107) mmol/L Carbon Dioxide 19 L (22-30) mmol/L BUN 40 H (9-20) mg/dL Creatinine 2.42 H (0.66-1.25) mg/dL Glucose (74-99) mg/dL Calcium 8.2 L (8.4-10.2) mg/dL HDL Cholesterol 24.10 L (40.00-60.00) mg/dL 10/20/22 10/20/22 10/20/22 Range/Units 01:02 05:51 05:51 WBC 14.5 H (3.8-10.6) k/uL Hgb 12.9 L (13.0-17.5) gm/dL Neutrophils # 11.7 H (1.3-7.7) k/uL Monocytes # 1.1 H (0-1.0) k/uL APTT 38.9 H (22.0-30.0) sec ABG pO2 (83-108) mmHg ABG O2 Saturation (94-97) % Chloride (98-107) mmol/L Carbon Dioxide (22-30) mmol/L BUN 41 H (9-20) mg/dL Creatinine 2.67 H (0.66-1.25) mg/dL Glucose 107 H (74-99) mg/dL Calcium (8.4-10.2) mg/dL HDL Cholesterol (40.00-60.00) mg/dL 10/20/22 10/20/22 Range/Units 05:51 06:15 WBC (3.8-10.6) k/uL Hgb (13.0-17.5) gm/dL Neutrophils # (1.3-7.7) k/uL Monocytes # (0-1.0) k/uL APTT 68.3 H (22.0-30.0) sec ABG pO2 119 H (83-108) mmHg ABG O2 Saturation 99.0 H (94-97) % Chloride (98-107) mmol/L Carbon Dioxide (22-30) mmol/L BUN (9-20) mg/dL Creatinine (0.66-1.25) mg/dL Glucose (74-99) mg/dL Calcium (8.4-10.2) mg/dL HDL Cholesterol (40.00-60.00) mg/dL Microbiology - Last 24 Hours (Table) 10/18/22 22:10 Gram Stain - Preliminary Sputum Sputum Culture - Preliminary Assessment and Plan Time with Patient: Greater than 30
[2022-10-20] MEDS: fentaNYL (PF). 1,000 MCG in SODIUM CHLORIDE 0.9% 80 ML IV SCH (14:38)
[2022-10-20] MEDS ORDERED: PHENYLEPHRINE IV SCH (15:00)
[2022-10-20] MEDS ORDERED: SODIUM CHLORIDE 0.9% IV SCH (15:00)
--- NOTE | 2022-10-20 15:19 | XR ---
EXAMINATION TYPE: XR abdomen 1V DATE OF EXAM: 10/20/2022 COMPARISON: None INDICATION: Bilious coffee ground emesis TECHNIQUE: Single view abdomen supine view FINDINGS: There is a large prominent air-filled transverse colon. Small amount fecal debris is near the hepatic flexure. No mass effect is evident. No suspicious loops of bowel are otherwise evident. Nasogastric tube transverses the thorax with the tip in the mid abdomen. Psoas margins are normal. No organomegaly is present. IMPRESSION: 1. Nonspecific abdomen. There is a somewhat prominent air-filled loop of transverse colon without july dence of obstruction
[2022-10-20] MEDS: AMIODARONE 450 MG in DEXTROSE 5% IN WATER 250 ML IV SCH ×2 (17:03)
[2022-10-20] MEDS ORDERED: ACETAMINOPHEN IV (For NPO) 1,000 MG in EMPTY BAG 1 BAG IVPB STA (17:14)
[2022-10-20 17:25] LABS: ABG Base Excess -10.5 mmol/L; ABG HCO3 16 mmol/L (21-25); ABG Oxygen Saturation 98.5 % (94-97); ABG PCO2 36 mmHg (35-45); ABG PH 7.27 (7.35-7.45); ABG PO2 120 mmHg (83-108); ABG TCO2 17 mmol/L (19-24)
[2022-10-20 17:27] LABS: Allen Test Performed? no
[2022-10-20] MEDS ORDERED: VANCOMYCIN IV PER PHARMACY 1 EACH MISC MISCELLANE PRN (17:32)
[2022-10-20] MEDS ORDERED: SODIUM CHLORIDE 0.9% 2,000 ML IV ONE (17:33)
[2022-10-20] MEDS: NOREPINEPHRINE 32 MG in SODIUM CHLORIDE 0.9% 218 ML IV SCH (17:45)
[2022-10-20] MEDS: VANCOMYCIN 1,750 MG in SODIUM CHLORIDE 0.9% 500 ML 500 ML IVPB SCH (18:11)
[2022-10-20] MEDS ORDERED: DEXTROSE 50% SYRINGE 50 ML IVP ONE (18:30)
[2022-10-20] MEDS: ATORVASTATIN 80 MG TAB PO SCH (20:39)
[2022-10-20] MEDS: PIPERACILLIN-TAZOBACTAM 3.375 GM in SODIUM CHLORIDE 0.9% 100 ML IVPB SCH (20:39)
[2022-10-21] MEDS ORDERED: ACETAMINOPHEN IV (For NPO) 1,000 MG in EMPTY BAG 1 BAG IVPB PRN
[2022-10-21] MEDS: IPRATROPIUM-ALBUTEROL 3 ML NEB INHALATION SCH ×6 (00:39→19:35)
[2022-10-21 02:05] LABS: Magnesium 2.3 mg/dL (1.6-2.3); Phosphorus 7.7 mg/dL (2.5-4.5)
[2022-10-21 02:22] LABS: Albumin 3.1 g/dL (3.5-5.0); Calcium 7.4 mg/dL (8.4-10.2); HCT 40.5 % (39.0-53.0); HGB 13.2 gm/dL (13.0-17.5); MCHC 32.7 g/dL (31.0-37.0); MCV 91.8 fL (80.0-100.0); Mean Platelet Volume 8.6; Platelet Count 166 k/uL (150-450); Potassium 5.6 mmol/L (3.5-5.1); RBC 4.41 m/uL (4.30-5.90); RDW 14.3 % (11.5-15.5); Total Bilirubin 2.5 mg/dL (0.2-1.3); Total Protein 6.1 g/dL (6.3-8.2); WBC 26.4 k/uL (3.8-10.6)
[2022-10-21] MEDS: NOREPINEPHRINE 32 MG in SODIUM CHLORIDE 0.9% 218 ML IV SCH ×2 (03:33→12:19)
[2022-10-21 04:05] LABS: ABG Base Excess -11.2 mmol/L; ABG HCO3 16 mmol/L (21-25); ABG Oxygen Saturation 97.8 % (94-97); ABG PCO2 35 mmHg (35-45); ABG PH 7.26 (7.35-7.45); ABG PO2 113 mmHg (83-108); ABG TCO2 17 mmol/L (19-24)
--- NOTE | 2022-10-21 06:20 | P.PN ---
Subjective Progress Note Date: 10/21/22 On today's evaluation of 2022, the patient is being seen in follow-up. The patient was intubated yesterday because of an acute hypoxic respiratory failure, acute non-ST segment elevation myocardial infarction. The patient was also in acute pulmonary edema and he also developed an acute kidney injury. Echocardiogram was done and the patient showed moderate impairment of LV function with an ejection fraction of 35-40% and the patient also had moderate degree of mitral regurgitation. His troponins peaked at 3.19. The patient is currently sedated on propofol running at 50 mcg/kg/m. He is, comfortable and symptoms of mechanical ventilator. His assist control mode at a rate of 28, tidal volume of 500, FiO2 40% with a PEEP of 5. The blood gas from today shows improvement in acid base status. The pH is at 7.34 andPCO2 is at 41 with a pO2 of 219. The patient is producing urine output in the order of 20-30 mL an hour. The discomfort 16.3 with hemoglobin 13.5 and a platelet count of 3:30. BUN is at 33 with a creatinine of 2.1 and the patient has developed an acute kidney injury. His baseline creatinine at time of admission was at 1.46. His potassium levels at 5.2. The patient remains on aspirin. The patient is on IV heparin. The patient was started on beta blockers. Blood pressure is soft and the patient has not required any pressors. The patient's cardiac rhythm is sinus and the patient is having frequent PVCs. Otherwise, he is afebrile. No other significant events overnight. His evaluation of 10/20/2022, the patient is being seen for a follow-up. The patient remains intubated on mechanical ventilator. This morning, the patient is on propofol running at 50 mcg/kg/m. [place] was also added at 0.5 mcg/kg/h to maintain synchrony with a mechanical ventilator. He is on assist control mode and is quite comfortable at this point. He is on a rate of 28, tidal v olume of 500, FiO2 of 40% and a PEEP of 5. No significant orotracheal secretions. A follow-up chest x-ray from this morning shows cardiomegaly and there is still evidence of pulmonary vascular congestion/edema. Orotracheal tube is in a good location. The patient is afebrile. The patient is hemo dynamically stable. His cardiac rhythm is currently sinus and the patient has converted into normal sinus rhythm. The patient continues to be diabetes with Lasix. The patient is on Lasix 40 mg IV every 12 hours. They net fluid balance over the past 24 hours is -826 mL. The blood gas from today shows a pH of 7.37 with a pCO2 of 39 and pO2 of 119. This was on FiO2 of 40%. The patient's LB cc count is at 14.5 with a hemoglobin 12.9 and a platelet count of 300. BUN is 41 with a creatinine of 2.6 and a sodium level is at 139. Ultrasound the kidney was completed yesterday and showed no evidence of any hydronephrosis. From the cardiac standpoint, the patient has cardiomyopathy. The patient has an ejection fraction of around 35-40% with moderate degree of mitral regurgitation. His troponin peaked at 3.1. He remains on IV heparin with a therapeutic PTT. Serum bicarb is currently at 22. Sputum cultures are still pending for now. He is on aspirin. Is on IV heparin. Is also on metoprolol 25 mg by mouth twice a day. 10/21/2022, the patient shows further signs of decompensation. The patient remains intubated on a mechanical ventilator. This morning, remains sedated and is currently on propofol running at the rate of 50 mcg/kg/m. The patient is also on fentanyl at 0.5 mcg/kg/h. He remains on a mechanical ventilator. He remains essentially on the same ventilator settings with an assist control of 20, tidal volume of 500, FiO2 of 40% and a PEEP of 5. His chest x-ray still showing cardiomegaly with pulmonary vessel congestion/interstitial edema. No clear airspace disease. Orotracheal tube is in adequate location. The patient also has a triple-lumen catheter in his left subclavian. Blood gas shows a pH of 7.26 with a pCO2 of 35 and pO2 of 113. Hemodynamically, there is further decompensation. The patient became progressively more hypotensive. He also lost his pulses in his lower extremities. He does have a popliteal pulse on the left, none on the right, no distal pulses in the right and lower feet. The patient also dropped his urine output. The patient has become progressively more hypotensive requiring high doses of pressors. Currently is on no repinephrine running at a dose of 0.15 microvascular kilogram per minute.. He has developed fever. He has developed leukocytosis and shock liver and he is also in acute kidney injury and he is demonstrating also signs of multisystem organ failure. As such, sepsis was suspected as of yesterday morning. He was given IV fluids and currently is on a positive fluid balance. He received a total of 3 L of IV fluid bolus yesterday with some marginal improvement in the urine output. Lactic acid levels are still elevated. The peak lactic acid level was at 5.6. The blood work from today shows a white cell count of 26.4 with a hemoglobin 13.2 and a platelet count of 166. He also has a serum bicarb of 13, a gap of 14, potassium level of 5.6, Nelsy of 48 and a creatinine of 3.86. He does have shock liver with an AST of 8072 and ALT of 1913. His bilirubin is at 2.5. Cultures are still pending negative thus far. Is covered with broad- spectrum antibiotics and he was given a combination of Zosyn and vancomycin. He also had issues with it. Flutter yesterday. He was given amiodarone and jackeline royal is still on amiodarone at 0.5 mcg/kg/m. His current cardiac rhythm is sinus with frequent PVCs. He had also episodes of wide complex rhythm, probably an aberrant cardiac rhythm. Cardiology remains on the case. He remains on IV heparin for the time being. She'll feeds have not been started yet. Objective - Vital Signs Vital signs: Vital Signs Temp 101 F H 10/21/22 06:00 Pulse 79 10/21/22 06:00 Resp 28 H 10/21/22 06:00 BP 88/58 10/21/22 06:00 Pulse Ox 99 10/21/22 06:00 FiO2 40 10/21/22 06:00 Intake & Output 10/20/22 10/20/22 10/21/22 06:59 18:59 06:59 Intake Total 665.865 949.269 0774.826 Output Total 1255 1540 70 Balance -589.135 -500.582 6103.826 Weight 107 kg 107 kg Intake: IV 858 181 1691 0.9 318 673 2176 Vancomycin 1,750 mg In 500 Sodium Chloride 0.9% 500 ml 500 ml @ 167 mls/hr IVPB Q24H [facility] Rx#: [id number] Intake, IV Titration 545.865 537.775 820.826 Amount Heparin Sod,Pork in 0.45% 180.852 125.61 245.183 NaCl 25,000 unit In 0.45 % NaCl 1 250ml.bag @ 8.48 UNITS/KG/HR 10.001 mls/ hr IV .Q24H [facility] Rx#: [id number] Norepinephrine 32 mg In 8.017 223.612 Sodium Chloride 0.9% 218 ml @ 0.03 MCG/KG/MIN 1. 505 mls/hr IV .Q24H [facility] Rx#:[id number] Phenylephrine 40 mg In 25.82 Sodium Chloride 0.9% 250 ml @ 0.5 MCG/KG/MIN 20. 384 mls/hr IV .[id number] [facility] Rx#:[id number] fentaNYL (PF). 1,000 mcg 74.794 91.404 In Sodium Chloride 0.9% 80 ml @ 0.5 MCG/KG/HR 5. 897 mls/hr IV .[id number] [facility] Rx#:[id number] propofoL 1,000 mg In 290.219 286.924 352.031 Empty Bag 1 bag @ 15 MCG/ KG/MIN 10.614 mls/hr IV . [id number] [facility] Rx#:[id number] Output: Gastric Drainage 600 Urine 1255 940 70 Other: Voiding Method Indwelling Catheter Indwelling Catheter Indwelling Catheter ABP, PAP, CO, CI - Last Documented Arterial Blood Pressure 88/51 - Exam GENERAL EXAM: Sedated 57-year-old white male currently synchronous with mechanical ventilator HEAD: Normocephalic and atraumatic EYES: Normal reaction of pupils, equal size. NOSE: Clear with pink turbinates. THROAT: No erythema or exudates. NECK: No obvious goiter, thyroid nodules, masses. CHEST: No chest wall deformity. LUNGS: Equal air entry with coarse bibasilar crackles. no wheeze, rhonchi or dullness. Intubated to the mechanical ventilator. CVS: S1 and S2 normal with no audible murmur, regular rhythm. No extra heart sounds ABDOMEN: Obese abdomen. No hepatosplenomegaly, active bowel sounds, no guarding or rigidity. SPINE: No scoliosis or deformity SKIN: No rashes. Diaphoretic CENTRAL NERVOUS SYSTEM: No focal deficits, tone is normal in all 4 extremities. EXTREMITIES: Bilateral lower extremity 2+ edema. No clubbing, or cyanosis. Absent pulses in the feet, absent pulses in the right lower extremity popliteal, present on the left, also quite diminished in the upper extremities bilaterally. - Labs CBC & Chem 7: 10/21/22 01:30 10/21/22 01:30 Labs: Abnormal Lab Results - Last 24 Hours (Table) 10/20/22 10/20/22 10/20/22 Range/Units 05:51 05:51 05:51 WBC 14.5 H (3.8-10.6) k/uL Hgb 12.9 L (13.0-17.5) gm/dL Neutrophils # 11.7 H (1.3-7.7) k/uL Monocytes # 1.1 H (0-1.0) k/uL APTT 68.3 H (22.0-30.0) sec ABG pH (7.35-7.45) ABG pO2 (83-108) mmHg ABG HCO3 (21-25) mmol/L ABG Total CO2 (19-24) mmol/L ABG O2 Saturation (94-97) % Potassium (3.5-5.1) mmol/L Chloride (98-107) mmol/L Carbon Dioxide (22-30) mmol/L BUN 41 H (9-20) mg/dL Creatinine 2.67 H (0.66-1.25) mg/dL Glucose 107 H (74-99) mg/dL Plasma Lactic Acid Nik (0.7-2.0) mmol/L Calcium (8.4-10.2) mg/dL Phosphorus (2.5-4.5) mg/dL Total Bilirubin (0.2-1.3) mg/dL AST (17-59) U/L ALT (4-49) U/L Total Protein (6.3-8.2) g/dL Albumin (3.5-5.0) g/dL Urine Blood (Negative) Ur Leukocyte Esterase (Negative) Urine RBC (0-5) /hpf Urine WBC (0-5) /hpf Uric Acid Crystals (None) /hpf Urine Bacteria (None) /hpf Urine Mucus (None) /hpf 10/20/22 10/20/22 10/20/22 Range/Units 06:15 09:00 17:16 WBC (3.8-10.6) k/uL Hgb (13.0-17.5) gm/dL Neutrophils # (1.3-7.7) k/uL Monocytes # (0-1.0) k/uL APTT (22.0-30.0) sec ABG pH (7.35-7.45) ABG pO2 119 H (83-108) mmHg ABG HCO3 (21-25) mmol/L ABG Total CO2 (19-24) mmol/L ABG O2 Saturation 99.0 H (94-97) % Potassium (3.5-5.1) mmol/L Chloride (98-107) mmol/L Carbon Dioxide (22-30) mmol/L BUN (9-20) mg/dL Creatinine (0.66-1.25) mg/dL Glucose (74-99) mg/dL Plasma Lactic Acid Nik 4.0 H* (0.7-2.0) mmol/L Calcium (8.4-10.2) mg/dL Phosphorus (2.5-4.5) mg/dL Total Bilirubin (0.2-1.3) mg/dL AST (17-59) U/L ALT (4-49) U/L Total Protein (6.3-8.2) g/dL Albumin (3.5-5.0) g/dL Urine Blood Moderate H (Negative) Ur Leukocyte Esterase Large H (Negative) Urine RBC 13 H (0-5) /hpf Urine WBC 26 H (0-5) /hpf Uric Acid Crystals Rare H (None) /hpf Urine Bacteria Few H (None) /hpf Urine Mucus Rare H (None) /hpf 10/20/22 10/20/22 10/21/22 Range/Units 17:21 20:50 01:30 WBC 26.4 H (3.8-10.6) k/uL Hgb (13.0-17.5) gm/dL Neutrophils # (1.3-7.7) k/uL Monocytes # (0-1.0) k/uL APTT (22.0-30.0) sec ABG pH 7.27 L (7.35-7.45) ABG pO2 120 H (83-108) mmHg ABG HCO3 16 L (21-25) mmol/L ABG Total CO2 17 L (19-24) mmol/L ABG O2 Saturation 98.5 H (94-97) % Potassium (3.5-5.1) mmol/L Chloride (98-107) mmol/L Carbon Dioxide (22-30) mmol/L BUN (9-20) mg/dL Creatinine (0.66-1.25) mg/dL Glucose (74-99) mg/dL Plasma Lactic Acid Nik 3.8 H* (0.7-2.0) mmol/L Calcium (8.4-10.2) mg/dL Phosphorus (2.5-4.5) mg/dL Total Bilirubin (0.2-1.3) mg/dL AST (17-59) U/L ALT (4-49) U/L Total Protein (6.3-8.2) g/dL Albumin (3.5-5.0) g/dL Urine Blood (Negative) Ur Leukocyte Esterase (Negative) Urine RBC (0-5) /hpf Urine WBC (0-5) /hpf Uric Acid Crystals (None) /hpf Urine Bacteria (None) /hpf Urine Mucus (None) /hpf 10/21/22 10/21/22 10/21/22 Range/Units 01:30 01:30 01:30 WBC (3.8-10.6) k/uL Hgb (13.0-17.5) gm/dL Neutrophils # (1.3-7.7) k/uL Monocytes # (0-1.0) k/uL APTT (22.0-30.0) sec ABG pH (7.35-7.45) ABG pO2 (83-108) mmHg ABG HCO3 (21-25) mmol/L ABG Total CO2 (19-24) mmol/L ABG O2 Saturation (94-97) % Potassium 5.6 H (3.5-5.1) mmol/L Chloride 110 H (98-107) mmol/L Carbon Dioxide 13 L (22-30) mmol/L BUN 48 H (9-20) mg/dL Creatinine 3.86 H (0.66-1.25) mg/dL Glucose 123 H (74-99) mg/dL Plasma Lactic Acid Nik 5.6 H* (0.7-2.0) mmol/L Calcium 7.4 L (8.4-10.2) mg/dL Phosphorus 7.7 H (2.5-4.5) mg/dL Total Bilirubin 2.5 H (0.2-1.3) mg/dL AST 8072 H (17-59) U/L ALT 1913 H (4-49) U/L Total Protein 6.1 L (6.3-8.2) g/dL Albumin 3.1 L (3.5-5.0) g/dL Urine Blood (Negative) Ur Leukocyte Esterase (Negative) Urine RBC (0-5) /hpf Urine WBC (0-5) /hpf Uric Acid Crystals (None) /hpf Urine Bacteria (None) /hpf Urine Mucus (None) /hpf 10/21/22 10/21/22 10/21/22 Range/Units 04:03 04:35 04:35 WBC (3.8-10.6) k/uL Hgb (13.0-17.5) gm/dL Neutrophils # (1.3-7.7) k/uL Monocytes # (0-1.0) k/uL APTT 44.4 H (22.0-30.0) sec ABG pH 7.26 L (7.35-7.45) ABG pO2 113 H (83-108) mmHg ABG HCO3 16 L (21-25) mmol/L ABG Total CO2 17 L (19-24) mmol/L ABG O2 Saturation 97.8 H (94-97) % Potassium (3.5-5.1) mmol/L Chloride (98-107) mmol/L Carbon Dioxide (22-30) mmol/L BUN (9-20) mg/dL Creatinine (0.66-1.25) mg/dL Glucose (74-99) mg/dL Plasma Lactic Acid Nik 4.6 H* (0.7-2.0) mmol/L Calcium (8.4-10.2) mg/dL Phosphorus (2.5-4.5) mg/dL Total Bilirubin (0.2-1.3) mg/dL AST (17-59) U/L ALT (4-49) U/L Total Protein (6.3-8.2) g/dL Albumin (3.5-5.0) g/dL Urine Blood (Negative) Ur Leukocyte Esterase (Negative) Urine RBC (0-5) /hpf Urine WBC (0-5) /hpf Uric Acid Crystals (None) /hpf Urine Bacteria (None) /hpf Urine Mucus (None) /hpf Microbiology - Last 24 Hours (Table) 10/20/22 09:00 Urine Culture - Preliminary Urine,Voided 10/18/22 22:10 Gram Stain - Preliminary Sputum Sputum Culture - Preliminary Assessment and Plan Plan: Acute exacerbation of chronic systolic congestive heart failure secondary to above. Most recent echocardiogram shows reduced ejection fraction of 35-40%, moderate tricuspid regurgitation, and moderate mitral regurgitation Acute shock, requiring high doses of pressors, most likely a combination of septic and cardiogenic in nature. Patient is requiring norepinephrine infusion for the time being. Diminished pulses in addition to signs of multisystem organ failure Acute kidney injury with progressive rise in the creatinine with diminished urine output. Rule out ATN, possibility of contrast nephropathy, possibility of cardiorenal factors with secondary ATN. He is oliguric at this point Metabolic acidosis a combination of anion and non-anion gap Acute shock liver Acute hypoxemic and hypercapnic respiratory failure secondary to above, currently intubated on mechanical ventilator Lactic acidosis, lactic acid levels remain elevated Acute fever Acute leukocytosis Atrial fibrillation with rapid ventricular rate with episodes of atrial flutter, currently on amiodarone drip at 0.5 mg/m and the patient is also on IV heparin Hyperthyroidism, TSH undetectable and free T4 4.14, and the patient is chemically hyperthyroid and the patient remains on methimazole. Free T4 is elevated at 4.1. This could have potentially contributed to his age of fibrillation. coronary artery disease with a remote history of stent Current nicotine dependence History of CVA with right-sided hemiparesis Hypertension Hyperlipidemia Medication noncompliance morbid obesity with BMI of 37 Plan Continue vent support, no ventilator changes from today Start the patient on a bicarb infusion and the patient is going to be on a total of 150 mEq of sodium bicarbonate running at 100 mL an hour. His CVP is quite elevated at this point at 15. Chest x-ray from today was noted, continues to have some degree of pulmonary edema Lasix currently on hold Nephrology has been consulted regarding the acute renal failure Ultrasound the kidneys showed no evidence of any hydronephrosis Continue aspirin and IV heparin Allow beta blockers as long as the patient's blood pressure tolerates, currently on metoprolol 25 mg by mouth twice a day Keep the Wang catheter in place Monitor the fluid balance and electrolytes Continue same antibiotic coverage with a combination of Zosyn and vancomycin Continue pressors and norepinephrine is lying currently at 0.5 mcg/kg/m. Initiate vasopressin low-dose, physiologic dose Would like to obtain a CAT scan of the chest abdomen and pelvis, this will be administered IV based on his underlying renal failure Awaiting results of the blood culture Monitor fever pattern patient was given IV Tylenol Monitor liver function tests We'll discuss the potential of modifying amiodarone especially with his underlying hepatic dysfunction Initiate low grade enteral feeding We'll continue to follow. We'll make further recommendations based on his progress. The patient will be seen along with the various consultants from cardiology and nephrology. Critical care evaluation, more than 30 minutes. Time with Patient: Greater than 30
[2022-10-21] MEDS ORDERED: VASOPRESSIN 60 UNIT in SODIUM CHLORIDE 0.9% 150 ML IV SCH (06:30)
[2022-10-21] MEDS: fentaNYL (PF). 1,000 MCG in SODIUM CHLORIDE 0.9% 80 ML IV SCH ×2 (06:34→18:12)
[2022-10-21] MEDS: AMIODARONE 450 MG in DEXTROSE 5% IN WATER 250 ML IV SCH ×2 (06:37)
[2022-10-21] MEDS: DEXTROSE 5% IN WATER 1,000 ML with SODIUM BICARB (1 MEQ/ML) 150 ML IV SCH ×2 (06:44→18:11)
--- NOTE | 2022-10-21 07:02 | XR ---
EXAMINATION TYPE: XR chest 1V portable DATE OF EXAM: 10/21/2022 4:53 AM COMPARISON: Chest radiographs from 10/20/2022. TECHNIQUE: XR chest 1V portable Portable AP radiograph of the chest. CLINICAL INDICATION:Male, 57 years old with history of Tube placement; FINDINGS: Lungs/Pleura: There is no evidence of pleural effusion, focal consolidation, or pneumothorax. Pulmonary vascularity: Unremarkable. Heart/mediastinum: Cardiomediastinal silhouette is enlarged and stable. Musculoskeletal: No acute osseous pathology. Other findings: None Lines/Tubes: Endotracheal tube with distal tip 7.0 cm above the derik Nasogastric tube with its distal tip and side-port projecting under the diaphragm. Left subclavian central venous catheter with distal tip at the mid SVC. IMPRESSION: 1. Stable support lines and tubes. 2. Persistent cardiomegaly.
--- NOTE | 2022-10-21 07:09 | P.PN ---
Subjective Progress Note Date: 10/21/22 PROGRESS NOTE The patient is a 57 year old male with a known history of CVA history of CAD, congestive heart failure, chronic tobacco use who has not seen a magnet placer in many years and stopped all his medications and presented yesterday was progressive dyspnea, atrial flutter with rapid ventricle response and evidence of CHF. His troponin on presentation was elevated. During the night he became more tachypneic requiring mechanical ventilation. He is intubated and sedated at this time. He is back in sinus mechanism, he had episode of hypotension that improved. His urine output is low. He underwent an echocardiogram that showed an ejection fraction of 35-40% with severe pulmonary hypertension, moderate mitral with moderate severe tricuspid regurgitation. On the monitor he has ventricular ectopic activity but he continues to be in sinus mechanism. His chest x-ray was consistent with pulmonary congestion. He was acidotic at the time of intubation. His lab data is consistent with hyperthyroidism. October 20: The patient remains intubated and sedated, in sinus mechanism with occasional PVCs, no further atrial fibrillation. Urinary output has been stable on IV Lasix. He is on no vasopressors. He continues to be on IV heparin. He has evidence of acute kidney injury with worsening renal failure. He had an abdominal and bladder ultrasound that showed no significant abnormalities. October 21: The patient deteriorated since yesterday, his blood pressure is on the low side requiring vasopressors. His urine output has been low. He had an episode of atrial fibrillation yesterday back in sinus mechanism. He had been accelerated idioventricular rhythm, back in sinus mechanism. He was started on IV amiodarone. He is febrile and having evidence to suggest septic shock. He was started on antibiotics. He continues to be on IV heparin. His IV diuretics were stopped and received IV fluid without significant improvement in his renal functions. He has significant worsening of his renal functions and liver function test consistent with multiorgan failure. Medications: Aspirin, Lipitor 80 mg daily, IV heparin. IV amiodarone drip, vasopressin, norepinephrine PHYSICAL EXAMINATION: Blood pressure 88/60 heart rate 80, intubated and sedated, temperature 102.1 LUNGS: Clear to auscultation anteriorly HEART: Regular rate and rhythm, S1, S2. No S3. systolic murmur at the base ABDOMEN: Soft, positive bowel sounds, no organomegaly EXTREMETIES: 1+ edema, LAB: Hemoglobin 13.2, WBC 26.4. BUN 48, creatinine 3.86. Potassium 5.6. Plasma lactic acid 5.6. AST 8072, ALT 1913. Magnesium 2.3. IMPRESSION: 1. Acute respiratory failure with evidence of CHF and impaired systolic function 2. Evidence of shock probably septic with multiorgan failure 3. Non-STEMI on presentation 4. Acute worsening renal injury 5. Shock Liver 6. Paroxysmal atrial fibrillation/flutter, now in sinus mechanism 7. Prior history of CAD 8. History of CVA chronic tobacco use PLAN: 1. Continue IV heparin 2. Continue IV amiodarone and follow renal functions closely 3. Follow liver function tests closely 4. Further workup for septic shock per intensive care 5. Prognosis is guarded Objective - Vital Signs Vital signs: Vital Signs Temp 101 F H 10/21/22 06:00 Pulse 79 10/21/22 06:00 Resp 28 H 10/21/22 06:00 BP 88/58 10/21/22 06:00 Pulse Ox 99 10/21/22 06:00 FiO2 40 10/21/22 06:00 Intake & Output 10/20/22 10/21/22 10/21/22 18:59 06:59 18:59 Intake Total 837.860 1753.479 Output Total 1540 70 Balance -254.319 0779.479 Weight 107 kg Intake: IV 110 2500 0.9 110 2000 Vancomycin 1,750 mg In 500 Sodium Chloride 0.9% 500 ml 500 ml @ 167 mls/hr IVPB Q24H [facility] Rx#: [id number] Intake, IV Titration 424.957 5910.479 Amount Amiodarone 450 mg In 226.116 Dextrose 5% in Water 250 ml @ 0.5 MG/MIN 16.667 mls/hr IV .Q15H [facility] Rx#: [id number] Heparin Sod,Pork in 0.45% 125.61 245.183 NaCl 25,000 unit In 0.45 % NaCl 1 250ml.bag @ 8.48 UNITS/KG/HR 10.001 mls/ hr IV .Q24H [facility] Rx#: [id number] Norepinephrine 32 mg In 8.017 223.612 Sodium Chloride 0.9% 218 ml @ 0.03 MCG/KG/MIN 1. 505 mls/hr IV .Q24H [facility] Rx#:[id number] Phenylephrine 40 mg In 25.82 Sodium Chloride 0.9% 250 ml @ 0.5 MCG/KG/MIN 20. 384 mls/hr IV .[id number] [facility] Rx#:[id number] fentaNYL (PF). 1,000 mcg 91.404 93.959 In Sodium Chloride 0.9% 80 ml @ 0.5 MCG/KG/HR 5. 897 mls/hr IV .[id number] [facility] Rx#:[id number] propofoL 1,000 mg In 286.924 444.609 Empty Bag 1 bag @ 15 MCG/ KG/MIN 10.614 mls/hr IV . Q9H26M [facility] Rx#:[id number] Output: Gastric Drainage 600 Urine 940 70 Other: Voiding Method Indwelling Catheter Indwelling Catheter ABP, PAP, CO, CI - Last Documented Arterial Blood Pressure 88/51 - Labs CBC & Chem 7: 10/21/22 01:30 10/21/22 01:30 Labs: Abnormal Lab Results - Last 24 Hours (Table) 10/20/22 10/20/22 10/20/22 Range/Units 05:51 09:00 17:16 WBC (3.8-10.6) k/uL APTT (22.0-30.0) sec ABG pH (7.35-7.45) ABG pO2 (83-108) mmHg ABG HCO3 (21-25) mmol/L ABG Total CO2 (19-24) mmol/L ABG O2 Saturation (94-97) % Potassium (3.5-5.1) mmol/L Chloride (98-107) mmol/L Carbon Dioxide (22-30) mmol/L BUN 41 H (9-20) mg/dL Creatinine 2.67 H (0.66-1.25) mg/dL Glucose 107 H (74-99) mg/dL Plasma Lactic Acid Nik 4.0 H* (0.7-2.0) mmol/L Calcium (8.4-10.2) mg/dL Phosphorus (2.5-4.5) mg/dL Total Bilirubin (0.2-1.3) mg/dL AST (17-59) U/L ALT (4-49) U/L Total Protein (6.3-8.2) g/dL Albumin (3.5-5.0) g/dL Urine Blood Moderate H (Negative) Ur Leukocyte Esterase Large H (Negative) Urine RBC 13 H (0-5) /hpf Urine WBC 26 H (0-5) /hpf Uric Acid Crystals Rare H (None) /hpf Urine Bacteria Few H (None) /hpf Urine Mucus Rare H (None) /hpf 10/20/22 10/20/22 10/21/22 Range/Units 17:21 20:50 01:30 WBC 26.4 H (3.8-10.6) k/uL APTT (22.0-30.0) sec ABG pH 7.27 L (7.35-7.45) ABG pO2 120 H (83-108) mmHg ABG HCO3 16 L (21-25) mmol/L ABG Total CO2 17 L (19-24) mmol/L ABG O2 Saturation 98.5 H (94-97) % Potassium (3.5-5.1) mmol/L Chloride (98-107) mmol/L Carbon Dioxide (22-30) mmol/L BUN (9-20) mg/dL Creatinine (0.66-1.25) mg/dL Glucose (74-99) mg/dL Plasma Lactic Acid Nik 3.8 H* (0.7-2.0) mmol/L Calcium (8.4-10.2) mg/dL Phosphorus (2.5-4.5) mg/dL Total Bilirubin (0.2-1.3) mg/dL AST (17-59) U/L ALT (4-49) U/L Total Protein (6.3-8.2) g/dL Albumin (3.5-5.0) g/dL Urine Blood (Negative) Ur Leukocyte Esterase (Negative) Urine RBC (0-5) /hpf Urine WBC (0-5) /hpf Uric Acid Crystals (None) /hpf Urine Bacteria (None) /hpf Urine Mucus (None) /hpf 10/21/22 10/21/22 10/21/22 Range/Units 01:30 01:30 01:30 WBC (3.8-10.6) k/uL APTT (22.0-30.0) sec ABG pH (7.35-7.45) ABG pO2 (83-108) mmHg ABG HCO3 (21-25) mmol/L ABG Total CO2 (19-24) mmol/L ABG O2 Saturation (94-97) % Potassium 5.6 H (3.5-5.1) mmol/L Chloride 110 H (98-107) mmol/L Carbon Dioxide 13 L (22-30) mmol/L BUN 48 H (9-20) mg/dL Creatinine 3.86 H (0.66-1.25) mg/dL Glucose 123 H (74-99) mg/dL Plasma Lactic Acid Nik 5.6 H* (0.7-2.0) mmol/L Calcium 7.4 L (8.4-10.2) mg/dL Phosphorus 7.7 H (2.5-4.5) mg/dL Total Bilirubin 2.5 H (0.2-1.3) mg/dL AST 8072 H (17-59) U/L ALT 1913 H (4-49) U/L Total Protein 6.1 L (6.3-8.2) g/dL Albumin 3.1 L (3.5-5.0) g/dL Urine Blood (Negative) Ur Leukocyte Esterase (Negative) Urine RBC (0-5) /hpf Urine WBC (0-5) /hpf Uric Acid Crystals (None) /hpf Urine Bacteria (None) /hpf Urine Mucus (None) /hpf 10/21/22 10/21/22 10/21/22 Range/Units 04:03 04:35 04:35 WBC (3.8-10.6) k/uL APTT 44.4 H (22.0-30.0) sec ABG pH 7.26 L (7.35-7.45) ABG pO2 113 H (83-108) mmHg ABG HCO3 16 L (21-25) mmol/L ABG Total CO2 17 L (19-24) mmol/L ABG O2 Saturation 97.8 H (94-97) % Potassium (3.5-5.1) mmol/L Chloride (98-107) mmol/L Carbon Dioxide (22-30) mmol/L BUN (9-20) mg/dL Creatinine (0.66-1.25) mg/dL Glucose (74-99) mg/dL Plasma Lactic Acid Nik 4.6 H* (0.7-2.0) mmol/L Calcium (8.4-10.2) mg/dL Phosphorus (2.5-4.5) mg/dL Total Bilirubin (0.2-1.3) mg/dL AST (17-59) U/L ALT (4-49) U/L Total Protein (6.3-8.2) g/dL Albumin (3.5-5.0) g/dL Urine Blood (Negative) Ur Leukocyte Esterase (Negative) Urine RBC (0-5) /hpf Urine WBC (0-5) /hpf Uric Acid Crystals (None) /hpf Urine Bacteria (None) /hpf Urine Mucus (None) /hpf Microbiology - Last 24 Hours (Table) 10/20/22 09:00 Urine Culture - Preliminary Urine,Voided 10/18/22 22:10 Gram Stain - Preliminary Sputum Sputum Culture - Preliminary
[2022-10-21] MEDS: HEPARIN SOD,PORK IN 0.45% NACL 25,000 UNIT in 0.45% NACL 1 250ML.BAG IV SCH (07:49)
[2022-10-21] MEDS: METOPROLOL TARTRATE 25 MG TAB PO SCH (08:48)
[2022-10-21] MEDS: methIMAzole 5 MG TAB PO SCH (08:48)
[2022-10-21] MEDS: ASPIRIN 81 MG PO SCH (08:48)
[2022-10-21] MEDS: PIPERACILLIN-TAZOBACTAM 3.375 GM in SODIUM CHLORIDE 0.9% 100 ML IVPB SCH (08:52)
[2022-10-21] MEDS: CHLORHEXIDINE GLUCONATE 15 ML CUP MUCOUS MEM SCH (08:52)
[2022-10-21] MEDS: PANTOPRAZOLE 40 MG/10 ML VIAL IVP SCH (08:52)
[2022-10-21] MEDS ORDERED: VANCOMYCIN IV PER PHARMACY 1 EACH MISC MISCELLANE PRN (09:45)
[2022-10-21] MEDS ORDERED: SODIUM BICARB 8.4% 50 ML SYR (1 MEQ/ML) IV STA (11:00)
[2022-10-21] MEDS ORDERED: SODIUM BICARB 8.4% 50 ML SYR (1 MEQ/ML) ONE (11:14)
[2022-10-21] MEDS ORDERED: SODIUM ZIRCONIUM CYCLOSILICATE 10 GM PACKET PO ONE (11:38)
--- NOTE | 2022-10-21 11:40 | P.PN ---
Subjective Patient is seen in follow-up for acute kidney injury. Patient spiked a temperature of 102F last night. He was also hypotensive yesterday. He rec eived 3 L normal saline yesterday. Started on bicarb drip this morning. Currently on Levophed as well as vasopressin. Intubated. Oliguric. Vital signs - on vasopressor support. Heart rate stable. Afebrile this morning. General: Resting in bed. HEENT: Intubated. LUNGS: Scattered rhonchi. HEART: Rate and Rhythm are regular. ABDOMEN: No distention. EXTREMITITES: No edema. Cyanotic feet noted. Objective - Vital Signs Vital signs: Vital Signs Temp 97.2 F L 10/21/22 08:00 Pulse 70 10/21/22 11:21 Resp 28 H 10/21/22 08:45 BP 127/59 10/21/22 08:45 Pulse Ox 100 10/21/22 08:45 FiO2 40 10/21/22 10:37 Intake & Output 10/20/22 10/21/22 10/21/22 18:59 06:59 18:59 Intake Total 107.348 0004.479 343.366 Output Total 1540 70 10 Balance -717.478 0518.479 333.366 Weight 107 kg Intake: IV 110 2500 0.9 110 2000 Vancomycin 1,750 mg In 500 Sodium Chloride 0.9% 500 ml 500 ml @ 167 mls/hr IVPB Q24H [facility] Rx#: [id number] Intake, IV Titration 672.368 3572.479 343.366 Amount Amiodarone 450 mg In 226.116 Dextrose 5% in Water 250 ml @ 0.5 MG/MIN 16.667 mls/hr IV .Q15H [facility] Rx#: [id number] Heparin Sod,Pork in 0.45% 125.61 245.183 243.366 NaCl 25,000 unit In 0.45 % NaCl 1 250ml.bag @ 8.48 UNITS/KG/HR 10.001 mls/ hr IV .Q24H [facility] Rx#: [id number] Norepinephrine 32 mg In 8.017 223.612 Sodium Chloride 0.9% 218 ml @ 0.03 MCG/KG/MIN 1. 505 mls/hr IV .Q24H [facility] Rx#:[id number] Phenylephrine 40 mg In 25.82 Sodium Chloride 0.9% 250 ml @ 0.5 MCG/KG/MIN 20. 384 mls/hr IV .[id number] [facility] Rx#:[id number] fentaNYL (PF). 1,000 mcg 91.404 93.959 In Sodium Chloride 0.9% 80 ml @ 0.5 MCG/KG/HR 5. 897 mls/hr IV .[id number] [facility] Rx#:[id number] propofoL 1,000 mg In 286.924 444.609 100 Empty Bag 1 bag @ 15 MCG/ KG/MIN 10.614 mls/hr IV . Q9H26M [facility] Rx#:[id number] Output: Gastric Drainage 600 Urine 940 70 10 Other: Voiding Method Indwelling Catheter Indwelling Catheter ABP, PAP, CO, CI - Last Documented Arterial Blood Pressure 118/67 - Labs CBC & Chem 7: 10/21/22 01:30 10/21/22 01:30 Labs: Abnormal Lab Results - Last 24 Hours (Table) 10/20/22 10/20/22 10/20/22 Range/Units 17:16 17:21 20:50 WBC (3.8-10.6) k/uL APTT (22.0-30.0) sec ABG pH 7.27 L (7.35-7.45) ABG pO2 120 H (83-108) mmHg ABG HCO3 16 L (21-25) mmol/L ABG Total CO2 17 L (19-24) mmol/L ABG O2 Saturation 98.5 H (94-97) % Potassium (3.5-5.1) mmol/L Chloride (98-107) mmol/L Carbon Dioxide (22-30) mmol/L BUN (9-20) mg/dL Creatinine (0.66-1.25) mg/dL Glucose (74-99) mg/dL Plasma Lactic Acid Nik 4.0 H* 3.8 H* (0.7-2.0) mmol/L Calcium (8.4-10.2) mg/dL Phosphorus (2.5-4.5) mg/dL Total Bilirubin (0.2-1.3) mg/dL AST (17-59) U/L ALT (4-49) U/L Total Protein (6.3-8.2) g/dL Albumin (3.5-5.0) g/dL 10/21/22 10/21/22 10/21/22 Range/Units 01:30 01:30 01:30 WBC 26.4 H (3.8-10.6) k/uL APTT (22.0-30.0) sec ABG pH (7.35-7.45) ABG pO2 (83-108) mmHg ABG HCO3 (21-25) mmol/L ABG Total CO2 (19-24) mmol/L ABG O2 Saturation (94-97) % Potassium 5.6 H (3.5-5.1) mmol/L Chloride 110 H (98-107) mmol/L Carbon Dioxide 13 L (22-30) mmol/L BUN 48 H (9-20) mg/dL Creatinine 3.86 H (0.66-1.25) mg/dL Glucose 123 H (74-99) mg/dL Plasma Lactic Acid Nik 5.6 H* (0.7-2.0) mmol/L Calcium 7.4 L (8.4-10.2) mg/dL Phosphorus (2.5-4.5) mg/dL Total Bilirubin 2.5 H (0.2-1.3) mg/dL AST 8072 H (17-59) U/L ALT 1913 H (4-49) U/L Total Protein 6.1 L (6.3-8.2) g/dL Albumin 3.1 L (3.5-5.0) g/dL 10/21/22 10/21/22 10/21/22 Range/Units 01:30 04:03 04:35 WBC (3.8-10.6) k/uL APTT 44.4 H (22.0-30.0) sec ABG pH 7.26 L (7.35-7.45) ABG pO2 113 H (83-108) mmHg ABG HCO3 16 L (21-25) mmol/L ABG Total CO2 17 L (19-24) mmol/L ABG O2 Saturation 97.8 H (94-97) % Potassium (3.5-5.1) mmol/L Chloride (98-107) mmol/L Carbon Dioxide (22-30) mmol/L BUN (9-20) mg/dL Creatinine (0.66-1.25) mg/dL Glucose (74-99) mg/dL Plasma Lactic Acid Nik (0.7-2.0) mmol/L Calcium (8.4-10.2) mg/dL Phosphorus 7.7 H (2.5-4.5) mg/dL Total Bilirubin (0.2-1.3) mg/dL AST (17-59) U/L ALT (4-49) U/L Total Protein (6.3-8.2) g/dL Albumin (3.5-5.0) g/dL 10/21/22 Range/Units 04:35 WBC (3.8-10.6) k/uL APTT (22.0-30.0) sec ABG pH (7.35-7.45) ABG pO2 (83-108) mmHg ABG HCO3 (21-25) mmol/L ABG Total CO2 (19-24) mmol/L ABG O2 Saturation (94-97) % Potassium (3.5-5.1) mmol/L Chloride (98-107) mmol/L Carbon Dioxide (22-30) mmol/L BUN (9-20) mg/dL Creatinine (0.66-1.25) mg/dL Glucose (74-99) mg/dL Plasma Lactic Acid Nik 4.6 H* (0.7-2.0) mmol/L Calcium (8.4-10.2) mg/dL Phosphorus (2.5-4.5) mg/dL Total Bilirubin (0.2-1.3) mg/dL AST (17-59) U/L ALT (4-49) U/L Total Protein (6.3-8.2) g/dL Albumin (3.5-5.0) g/dL Microbiology - Last 24 Hours (Table) 10/18/22 22:10 Gram Stain - Final Sputum Sputum Culture - Final 10/20/22 09:00 Urine Culture - Preliminary Urine,Voided Assessment and Plan Plan: Assessment: 1. Acute kidney injury secondary to hemodynamic ATN as well as component of contrast-induced acute kidney injury. Patient received IV contrast on 10/18/2022. Creatinine 0.96 on admission and is 3.86 today. No hydronephrosis noted on kidney. No proteinuria on UA. oliguric. 2. Metabolic acidosis secondary to acute kidney injury. 3. Volume overload. improved with diuresis. 4. Acute hypoxic respiratory failure. 5. Acute on chronic systolic CHF with ejection fraction of 35-40% with moderate mitral and tricuspid regurgitation. 6. A. fib with RVR maintained on amiodarone drip. 7. Hyperkalemia secondary to acute kidney injury and acidosis. Plan: Maintain bicarb drip. Tube feeds to be started today. Lokelma 10 g once now. 3 amps sodium bicarb IV push now. Avoid nephrotoxins. Continue to monitor renal function and urine output. Repeat BMP this evening. Continue to assess daily for need for renal replacement therapy.
[2022-10-21 11:47] VITALS: TEMP 97.1
--- NOTE | 2022-10-21 12:12 | P.PN ---
Subjective Progress Note Date: 10/21/22 57-year-old male with a missed known history of coronary artery disease with stents in the past and failure came in with compensative shortness of breath and orthopnea paroxysmal nocturnal dyspnea elevated troponin and found to be in heart failure with bilateral pleural effusions and elevated proBNP of 11,000. Patient did have orthopnea and proximal lateral dyspnea increased of bilateral pedal edema. Patient has stopped taking his medications about 2 months ago including antiplatelet medications and diuretics and continues to smoke a pack of cigarettes per day patient does have elevated d-dimer because of which CT of the chest was opted which did not show any pulmonary embolism. Patient is also found to be in atrial fibrillation with rapid ventricular rate and was started on IV heparin. Patient is supposed to be on Coumadin as an outpatient. 10/19/2022 Patient evaluated today in intensive care unit, patient is currently intubated and sedated. Required intubation around 2129 last night secondary to increased shortness of breath and respiratory distress. Patient was also noted to be diap horetic. Chest xray this morning showing cardiomegaly with bilateral edema/infiltrates. Findings are slightly improved. Creatinine is increased up to 2.13 today, patient has been maintained on IV lasix Q12. Indwelling catheter in place, abdomen/bladder ultrasound completed today showing no hydronephrosis or obstructive uropathy. Lactic acid is down to 1.5. TSH found to be <0.015 and Free T4 of 4.14. 10/20/2022 Patient is evaluated in the intensive care unit, remains sedated and intubated on mechanical ventilator with FiO2 of 40%. Patient is tachycardic today heart rate as high as 190s and currently 140s at the time of assessment. He has been started on IV amiodarone infusion. Maintains on IV lasix Q12 hours with urine output of 2.9 Liters overnight. Chest xray this morning showing questionable mild subsegmental atelectasis bilateral lung bases, with mild cardiomegaly. Patient remains on IV heparin, sedated with propofol, on fentanyl gtt. Patients son and son's mother are updated on patient in the waiting room today. There is report of possible recent cocaine use, patient does have history of meth abuse in the past. Labs today are showing white count of 14.5, sodium 139, potassium 4.5, BUN 41, creatinine 2.67, glucose of 107. Urinalysis done showing moderate blood, large luekocyte esterase, few bacteria, and uric acid crystals. Urine drug toxicology is negative. Nephrology consult requested. 10/21/2022 Patient remains in the intensive care unit remains sedated and intubated on mechanical ventilator with FiO2 of 40%. There was concern for increased gastric output yesterday from NG tube and abdominal xray was done showing nonspecific abdomen, with somewhat prominent air-filled loop of transverse colon without evidence of obstruction. Gastric output has slowed with 100 mls of content overnight. Patient does have hypoactive bowel sounds, abdomen remains soft. Patient spiked a temp up to 101.3 and also had issues with hypotension for this reason septic work up was initiated. Blood culture is pending and sputum culture is requested. Lactic acid has come back at 4.0. Patient received 3L of normal saline. Patient was started on IV zosyn ad IV vancomycin empiricially. Patient has evidence of multiorgan failure today with shock liver. Urine output has decreased overnight patient is making about 20-15 mls of urine per hour. Creatinine is up to 3.86. Patient has been started on IV vasopression and IV levophed. Continues on IV amiodarone infusion per cardiology, He has converted into sinus mechanism maintaining heart rate in the 60s-70s. Blood pressure in the 120s systolic. Additionally, he is on bicarbonate gtt at 100mls/hr and will receive additional bicarb today. Patients son Joseph is updated over the telephone on patients clinical status and critical condition and at this time is requesting patient to remain FULL CODE. Unable to complete review of systems patient is currently intubated and sedated PHYSICAL EXAMINATION: GENERAL: The patient is sedated, not in any acute distress. Well developed, well nourished. HEENT: Pupils are round and equally reacting to light. EOMI. No scleral icterus. No conjunctival pallor. Normocephalic, atraumatic. No pharyngeal erythema. No thyromegaly. CARDIOVASCULAR: S1 and S2 present. No murmurs, rubs, or gallops. PULMONARY: Diminished ABDOMEN: Soft, nontender, nondistended, Hypoactive bowel sounds. No palpable organomegaly. MUSCULOSKELETAL: No joint swelling or deformity. EXTREMITIES: Peripheral edema lower extremity bilateral mild, Left foot is cold with purple discoloration to toes, pulse is unable to be found by doppler. NEUROLOGICAL: Unable to assess patient is currently sedated SKIN: No rashes. Assessment and plan Assessment -Acute Congestive heart failure with reduced EF of 35-40%, moderate Mitral and Tricuspid regurgitation -Acute hypoxic/hypercapnic respiratory failure currently intubated on mechanical ventilator with FiO2 of 40% secondary to above. -Acute kidney injury likely acute tubular necrosis/contrast induced nephropathy, creatinine continues to climb and urine output has now decreased overnight. -Acute shock and shock liver this is likely cardiogenic in nature and possibly septic shock patient is on vasopressor support. There is evidence of multiorgan failure. -Paroxysmal Atrial flutter with rapid ventricular rate continues on amiodarone gtt currently converted to normal sinus rhythm -Acute non-ST elevation microinfarction with elevated troponin of around 2.6 pat ient is on IV heparin -Lactic acidosis and leukocytosis -No evidence of pulmonary embolism -History of CVA with mild residual right-sided weakness -Questionable polysubstance abuse per family, urine drug toxicology is negative -Hyperthyroidism -History of coronary artery disease and prior PCI -Chronic systolic heart failure -Hyperlipidemia -Nicotine cessation counseling was provided -Noncompliance of medications extensive counseling was provided DVT prophylaxis: On IV heparin GI prophylaxis Full Code Plan Mechanical ventilator per ICU email campaign specialist IV lasix has been held at this point Continues on IV heparin, IV amiodarone per cardiology Patient has been started on IV bicarbonate gtt and will receive additional IV push bicarbonate per nephrology Hyperkalemia will be treated with Lokelma Patient on empiric antibiotic coverage and blood, urine, and sputum culture pending CT scan of the chest/abdomen/pelvis has been ordered Continue all other supportive care Pulses are absent bilateral dorsalis pedis continue to monitor closely Continues on IV levophed/IV Vasopressin per email campaign specialist Cardiology and nephrology following. Patient remains in critical condition and patients son was updated on plan of care and at this time would like patient to remain FULL CODE. The impression and plan of care has been dictated by Radha Dobbs, Nurse Practitioner as directed. Dr. Andriy MD I have performed a history and physical examination and medical decision making of this patient, discussed the same with the dictator, and agree with the dictators assessment and plan as written, documented as a scribe. Based on total visit time, I have performed more than 50% of this visit. Objective - Vital Signs Vital signs: Vital Signs Temp 97.2 F L 10/21/22 08:00 Pulse 70 10/21/22 11:21 Resp 28 H 10/21/22 08:45 BP 127/59 10/21/22 08:45 Pulse Ox 100 10/21/22 08:45 FiO2 40 10/21/22 10:37 Intake & Output 10/20/22 10/21/22 10/21/22 18:59 06:59 18:59 Intake Total 516.663 1035.479 343.366 Output Total 1540 70 10 Balance -039.851 7707.479 333.366 Weight 107 kg Intake: IV 110 2500 0.9 110 2000 Vancomycin 1,750 mg In 500 Sodium Chloride 0.9% 500 ml 500 ml @ 167 mls/hr IVPB Q24H [facility] Rx#: [id number] Intake, IV Titration 658.666 4847.479 343.366 Amount Amiodarone 450 mg In 226.116 Dextrose 5% in Water 250 ml @ 0.5 MG/MIN 16.667 mls/hr IV .Q15H [facility] Rx#: [id number] Heparin Sod,Pork in 0.45% 125.61 245.183 243.366 NaCl 25,000 unit In 0.45 % NaCl 1 250ml.bag @ 8.48 UNITS/KG/HR 10.001 mls/ hr IV .Q24H [facility] Rx#: [id number] Norepinephrine 32 mg In 8.017 223.612 Sodium Chloride 0.9% 218 ml @ 0.03 MCG/KG/MIN 1. 505 mls/hr IV .Q24H [facility] Rx#:[id number] Phenylephrine 40 mg In 25.82 Sodium Chloride 0.9% 250 ml @ 0.5 MCG/KG/MIN 20. 384 mls/hr IV .[id number] [facility] Rx#:[id number] fentaNYL (PF). 1,000 mcg 91.404 93.959 In Sodium Chloride 0.9% 80 ml @ 0.5 MCG/KG/HR 5. 897 mls/hr IV .[id number] [facility] Rx#:[id number] propofoL 1,000 mg In 286.924 444.609 100 Empty Bag 1 bag @ 15 MCG/ KG/MIN 10.614 mls/hr IV . [id number] [facility] Rx#:[id number] Output: Gastric Drainage 600 Urine 940 70 10 Other: Voiding Method Indwelling Catheter Indwelling Catheter ABP, PAP, CO, CI - Last Documented Arterial Blood Pressure 118/67 - Labs CBC & Chem 7: 10/21/22 01:30 10/21/22 01:30 Labs: Abnormal Lab Results - Last 24 Hours (Table) 10/20/22 10/20/22 10/20/22 Range/Units 17:16 17:21 20:50 WBC (3.8-10.6) k/uL APTT (22.0-30.0) sec ABG pH 7.27 L (7.35-7.45) ABG pO2 120 H (83-108) mmHg ABG HCO3 16 L (21-25) mmol/L ABG Total CO2 17 L (19-24) mmol/L ABG O2 Saturation 98.5 H (94-97) % Potassium (3.5-5.1) mmol/L Chloride (98-107) mmol/L Carbon Dioxide (22-30) mmol/L BUN (9-20) mg/dL Creatinine (0.66-1.25) mg/dL Glucose (74-99) mg/dL Plasma Lactic Acid Nik 4.0 H* 3.8 H* (0.7-2.0) mmol/L Calcium (8.4-10.2) mg/dL Phosphorus (2.5-4.5) mg/dL Total Bilirubin (0.2-1.3) mg/dL AST (17-59) U/L ALT (4-49) U/L Total Protein (6.3-8.2) g/dL Albumin (3.5-5.0) g/dL 10/21/22 10/21/22 10/21/22 Range/Units 01:30 01:30 01:30 WBC 26.4 H (3.8-10.6) k/uL APTT (22.0-30.0) sec ABG pH (7.35-7.45) ABG pO2 (83-108) mmHg ABG HCO3 (21-25) mmol/L ABG Total CO2 (19-24) mmol/L ABG O2 Saturation (94-97) % Potassium 5.6 H (3.5-5.1) mmol/L Chloride 110 H (98-107) mmol/L Carbon Dioxide 13 L (22-30) mmol/L BUN 48 H (9-20) mg/dL Creatinine 3.86 H (0.66-1.25) mg/dL Glucose 123 H (74-99) mg/dL Plasma Lactic Acid Nik 5.6 H* (0.7-2.0) mmol/L Calcium 7.4 L (8.4-10.2) mg/dL Phosphorus (2.5-4.5) mg/dL Total Bilirubin 2.5 H (0.2-1.3) mg/dL AST 8072 H (17-59) U/L ALT 1913 H (4-49) U/L Total Protein 6.1 L (6.3-8.2) g/dL Albumin 3.1 L (3.5-5.0) g/dL 10/21/22 10/21/22 10/21/22 Range/Units 01:30 04:03 04:35 WBC (3.8-10.6) k/uL APTT 44.4 H (22.0-30.0) sec ABG pH 7.26 L (7.35-7.45) ABG pO2 113 H (83-108) mmHg ABG HCO3 16 L (21-25) mmol/L ABG Total CO2 17 L (19-24) mmol/L ABG O2 Saturation 97.8 H (94-97) % Potassium (3.5-5.1) mmol/L Chloride (98-107) mmol/L Carbon Dioxide (22-30) mmol/L BUN (9-20) mg/dL Creatinine (0.66-1.25) mg/dL Glucose (74-99) mg/dL Plasma Lactic Acid Nik (0.7-2.0) mmol/L Calcium (8.4-10.2) mg/dL Phosphorus 7.7 H (2.5-4.5) mg/dL Total Bilirubin (0.2-1.3) mg/dL AST (17-59) U/L ALT (4-49) U/L Total Protein (6.3-8.2) g/dL Albumin (3.5-5.0) g/dL 10/21/22 Range/Units 04:35 WBC (3.8-10.6) k/uL APTT (22.0-30.0) sec ABG pH (7.35-7.45) ABG pO2 (83-108) mmHg ABG HCO3 (21-25) mmol/L ABG Total CO2 (19-24) mmol/L ABG O2 Saturation (94-97) % Potassium (3.5-5.1) mmol/L Chloride (98-107) mmol/L Carbon Dioxide (22-30) mmol/L BUN (9-20) mg/dL Creatinine (0.66-1.25) mg/dL Glucose (74-99) mg/dL Plasma Lactic Acid Nik 4.6 H* (0.7-2.0) mmol/L Calcium (8.4-10.2) mg/dL Phosphorus (2.5-4.5) mg/dL Total Bilirubin (0.2-1.3) mg/dL AST (17-59) U/L ALT (4-49) U/L Total Protein (6.3-8.2) g/dL Albumin (3.5-5.0) g/dL Microbiology - Last 24 Hours (Table) 10/18/22 22:10 Gram Stain - Final Sputum Sputum Culture - Final 10/20/22 09:00 Urine Culture - Preliminary Urine,Voided Assessment and Plan Time with Patient: Greater than 30
--- NOTE | 2022-10-21 13:03 | XR ---
EXAMINATION TYPE: XR chest 1V portable DATE OF EXAM: 10/21/2022 COMPARISON: 10/21/2022 at 0409 hours HISTORY: Orogastric tube placement TECHNIQUE: Single frontal view of the chest is obtained. FINDINGS: There is a partially visualized left subclavian vein approach catheter, a partially visualized endotr acheal tube, and an orogastric tube is extends past the diaphragm and terminating outside the field o f view. There are patchy airspace opacities at the bilateral lung bases. There is no significant pleural effu celestina. Please note that the bilateral lung apices are excluded from the [id number]. IMPRESSION: 1. Satisfactory position of orogastric tube. 2. Bibasilar airspace disease, which may relate to atelectasis or pneumonia.
[2022-10-21] MEDS ORDERED: PIPERACILLIN-TAZOBACTAM 3.375 GM in SODIUM CHLORIDE 0.9% 100 ML IVPB SCH (16:00)
[2022-10-21 16:20] LABS: African American GFR (CKD) 15 (>60 ml/min/1.73 sqM); Albumin 2.7 g/dL (3.5-5.0); Alkaline Phosphatase 93 U/L (38-126); Anion Gap 14 mmol/L; Blood Urea Nitrogen 60 mg/dL (9-20); Calcium 6.5 mg/dL (8.4-10.2); Carbon Dioxide 19 mmol/L (22-30); Chloride 105 mmol/L (98-107); Glucose 176 mg/dL (74-99); Non-African American GFR(CKD) 13 (>60 ml/min/1.73 sqM); Phosphorus 7.9 mg/dL (2.5-4.5); Potassium 4.3 mmol/L (3.5-5.1); Sodium 138 mmol/L (137-145); Total Bilirubin 3.1 mg/dL (0.2-1.3); Total Protein 5.5 g/dL (6.3-8.2)
[2022-10-21 16:55] LABS: ALT 3462 U/L (4-49)
[2022-10-21 17:59] LABS: AST >15000 U/L (17-59)
[2022-10-21] MEDS: VANCOMYCIN 1,750 MG in SODIUM CHLORIDE 0.9% 500 ML 500 ML IVPB SCH (18:45)
[2022-10-21] MEDS ORDERED: MORPHINE SULFATE 2 MG/ML SYRINGE IV PRN (19:00)
[2022-10-21] MEDS ORDERED: MORPHINE SULFATE (100 MG/2 ML) 100 MG in SODIUM CHLORIDE 0.9% 100 ML IV SCH (19:00)
[2022-10-21] MEDS ORDERED: LORazepam 2 MG/ML INJ IV PRN (19:00)
[2022-10-21] MEDS ORDERED: MORPHINE SULFATE 4 MG/ML SYRINGE IVP ONE (19:00)
[2022-10-21 20:15] VITALS: BP 90/47
[2022-10-21] MEDS ORDERED: FAMOTIDINE 20 MG/2 ML VIAL IV SCH (21:00)
[2022-10-21 23:44] VITALS: PULSE 76; RESP 8
[2022-10-22] MEDS: IPRATROPIUM-ALBUTEROL 3 ML NEB INHALATION SCH (01:22)
--- NOTE | 2022-10-23 17:49 | P.DS ---
Providers Date of admission: 10/18/22 11:02 Attending physician: Trixie Hamilton Consults: 10/18/22 09:38 Consult Physician Urgent Consulting Provider: Ray Alonso Consult Reason/Comments: Atrial flutter, NSTEMI Do you want consulting provider notified?: Already Contacted 10/18/22 21:56 Consult Physician Stat Consulting Provider: Kian Morocho Consult Reason/Comments: icu management Do you want consulting provider notified?: Already Contacted 10/20/22 08:39 Consult Physician Routine Consulting Provider: Merrill Arora Consult Reason/Comments: acute kidney injury Do you want consulting provider notified?: Yes Primary care physician: [place] Hospital Course: Final Diagnosis -Acute Congestive heart failure with reduced EF of 35-40%, moderate Mitral and Tricuspid regurgitation -Acute hypoxic/hypercapnic respiratory failure currently intubated on mechanical ventilator with FiO2 of 40% secondary to above. -Acute kidney injury likely acute tubular necrosis/contrast induced nephropathy, creatinine continues to climb and urine output has now decreased overnight. -Acute shock and shock liver this is likely cardiogenic in nature and possibly septic shock patient is on vasopressor support. There is evidence of multiorgan failure. -Acute urinary tract infection with sepsis urine culture showing E.Coli -Paroxysmal Atrial flutter with rapid ventricular rate requiring IV amiodarone -Acute non-ST elevation myocardial infarction with elevated troponin of around 2.6 patient is on IV heparin -Lactic acidosis and leukocytosis -No evidence of pulmonary embolism -History of CVA with mild residual right-sided weakness -Questionable polysubstance abuse per family, urine drug toxicology is negative -Hyperthyroidism -History of coronary artery disease and prior PCI -Chronic systolic heart failure -Hyperlipidemia -Nicotine cessation counseling was provided -Noncompliance of medications extensive counseling was provided Do Not Resuscitate Do Not Intubate Patient on 10/21/2022 at 2158. Hospital Course This is a 57 year old male presents to the hospital with respiratory distress and shortly after requiring intubation and mechanical ventilator with ICU support. Patient has medical history of prior LA and stroke, heart failure, hyperlipidemia, current tobacco use. Patient also has history of atrial fibrillation. On admission patient had reported noncompliance with outpatient medication including blood thinner. He was found to be in acute CHF and acute kidney injury and was treated with IV lasix. Echocardiogram shows an EF of 35- 40%. Patient also had troponin elevation. Clinical condition worsened and patient had increased lactic acid which had initially improved from admission. Sepsis work up started and patient placed on broad spectrum antibiotics. Urine culture has resulted at E. Coli, sputum is negative and blood culture has been negative so far. Patient had worsening clinical condition with evidence of mulitorgan failure requiring vasopressor support. Patient in atrial fibrillation with rapid ventricular rate requiring IV amiodarone. He was found to be in hyperthyroid state. Most recent chest xray showing bibasilar airspace disease which may relate to atelectasis or pneumonia. White count increased to 26, creatinine up to 4.76, AST >150,000 and ALT of 3462. Patients family decided to make patient a do not resuscitate. Patient was extubated on 10/21/2022 at 1930 he shortly after. Patient was followed by nephrology, cardiology, implementation engineer. Thank you for allowing us to participate in the care of this patient. The impression and plan of care has been dictated by Radha Dobbs, Nurse Practitioner as directed. Dr. Andriy MD I have performed a history and physical examination and medical decision making of this patient, discussed the same with the dictator, and agree with the dictators assessment and plan as written, documented as a scribe. Based on total visit time, I have performed more than 50% of this visit. Plan - Discharge Summary Discharge Rx Participant: Yes New Discharge Prescriptions: No Action No Known Home Medications Discharge Medication List No Known Home Medications 10/18/22 [History] Follow up Appointment(s)/Referral(s): Юлия Shore MD [Primary Care Provider] - 1-2 days Discharge Disposition: - Preliminary Cause of Preliminary Cause of : Septic shock, acute myocardial infarction
--- NOTE | 2022-10-27 07:30 | CDI ---
Documentation Clarification Form Date: 10/27/22 From: Trish Larkin Admit Date: 10/18/2022 11:02:00 AM Patient Name: Kian Nguyen Visit Number: [id number] Discharge Date: 10/22/2022 1:23:00 AM ATTENTION: The Clinical Documentation Specialists (CDI) and [facility] Coding Staff appreciate your assistance in clarifying documentation. Please respond to the clarification below the line at the bottom and electronically sign. The CDI & [facility] Coding staff will review the response and follow-up if needed. Please note: Queries are made part of the Legal Health Record. If you have any questions, please contact the author of this message via ITS. Dr. Ray Alonso, Atrial Flutter is documented in ED Note, numerous progress notes and discharge summary. Additional clarification regarding the type of Atrial Flutter is requested. History/Risk factors: NSTEMI, PAF, HTN w acute/chronic systolic CHF, VT, cardiomyopathy, pulmonary HTN Clinical Indicators: Chief complaint of increasing .shortness of breath. EKG/telemetry: atrial flutterRVR, rate 154 QRS 106 QT/QTC 295/382 Treatment: IV Cardizem Please clarify the type of Atrial Flutter, if known: [x ] Typical/Type I [ ] Atypical/Type II [ ] Other, please specify [ ] Unable to determine MTDD
== END 2022-10-21 21:58 | disposition expired | DRG 190 ==
LOC: EC 08:10 → SUPCPDRO 08:10 → 3SCARD 11:02 → 2SICU 21:24
PROVIDERS: ADMIT Hospitalist; ATTEND Hospitalist
PROC: 5A1945Z Respiratory Ventilation, 24-96 Consecutive Hours (ICD-10-PCS; principal; 2022-10-18)
PROC: 4A133J1 Monitoring of Arterial Pulse, Peripheral, Percutaneous Approach (ICD-10-PCS; 2022-10-18)
PROC: 03HY32Z Insertion of Monitoring Device into Upper Artery, Percutaneous Approach (ICD-10-PCS; 2022-10-18)
PROC: 0BH17EZ Insertion of Endotracheal Airway into Trachea, Via Natural or Artificial Opening (ICD-10-PCS; 2022-10-18)
PROC: 4A133B1 Monitoring of Arterial Pressure, Peripheral, Percutaneous Approach (ICD-10-PCS; 2022-10-18)
PROC: 0D9670Z Drainage of Stomach with Drainage Device, Via Natural or Artificial Opening (ICD-10-PCS; 2022-10-18)
PROC: 4A133J1 Monitoring of Arterial Pulse, Peripheral, Percutaneous Approach (ICD-10-PCS; 2022-10-20)
PROC: 04HY32Z Insertion of Monitoring Device into Lower Artery, Percutaneous Approach (ICD-10-PCS; 2022-10-20)
PROC: 3E043XZ Introduction of Vasopressor into Central Vein, Percutaneous Approach (ICD-10-PCS; 2022-10-20)
PROC: 4A133B1 Monitoring of Arterial Pressure, Peripheral, Percutaneous Approach (ICD-10-PCS; 2022-10-20)
PROC: 02HV33Z Insertion of Infusion Device into Superior Vena Cava, Percutaneous Approach (ICD-10-PCS; 2022-10-20)
PROC: 3E0G76Z Introduction of Nutritional Substance into Upper GI, Via Natural or Artificial Opening (ICD-10-PCS; 2022-10-20)
DX: I21.4 Non-ST elevation (NSTEMI) myocardial infarction (principal); A41.51 Sepsis due to Escherichia coli [E. coli]; J96.01 Acute respiratory failure with hypoxia; J96.02 Acute respiratory failure with hypercapnia; N17.0 Acute kidney failure with tubular necrosis; K72.00 Acute and subacute hepatic failure without coma; R65.21 Severe sepsis with septic shock; I50.23 Acute on chronic systolic (congestive) heart failure; J18.9 Pneumonia, unspecified organism; E87.21 Acute metabolic acidosis; I11.0 Hypertensive heart disease with heart failure; I47.20 Ventricular tachycardia, unspecified; I27.20 Pulmonary hypertension, unspecified; I42.9 Cardiomyopathy, unspecified; I69.351 Hemiplegia and hemiparesis following cerebral infarction affecting right dominant side; I48.3 Typical atrial flutter; E66.01 Morbid (severe) obesity due to excess calories; N39.0 Urinary tract infection, site not specified; I48.0 Paroxysmal atrial fibrillation; F15.11 Other stimulant abuse, in remission; Z66 Do not resuscitate; Z51.5 Encounter for palliative care; Z20.822 Contact with and (suspected) exposure to COVID-19; Z28.310 Unvaccinated for COVID-19; R57.0 Cardiogenic shock; I49.3 Ventricular premature depolarization; I25.10 Atherosclerotic heart disease of native coronary artery without angina pectoris; I08.1 Rheumatic disorders of both mitral and tricuspid valves; E78.5 Hyperlipidemia, unspecified; E05.90 Thyrotoxicosis, unspecified without thyrotoxic crisis or storm; T50.916A Underdosing of multiple unspecified drugs, medicaments and biological substances, initial encounter; I25.2 Old myocardial infarction; Z68.33 Body mass index [BMI] 33.0-33.9, adult; N14.11 Contrast-induced nephropathy; T50.8X5A Adverse effect of diagnostic agents, initial encounter; E87.5 Hyperkalemia; Z91.128 Patient's intentional underdosing of medication regimen for other reason; Z91.199 Patient's noncompliance with other medical treatment and regimen due to unspecified reason; F17.210 Nicotine dependence, cigarettes, uncomplicated; Z71.6 Tobacco abuse counseling; Z95.5 Presence of coronary angioplasty implant and graft; Z71.3 Dietary counseling and surveillance; Z71.89 Other specified counseling; Y92.230 Patient room in hospital as the place of occurrence of the external cause
CPT/HCPCS: 36415; 71045; 71046; 71275; 74018; 76770; 80048; 80053; 80061; 80306; 81001; 82805; 83605; 83735; 83880; 84100; 84439; 84443; 84484; 85025; 85027; 85379; 85610; 85730; 87040; 87070; 87077; 87086; 87186; 87205; 87636; 93005; 93306; 94002; 94003; 94640; 96365; 96366; 96375; 99291; 99406